=== PATIENT | male | born 1970 | race Hispanic/Latino ===

== ENCOUNTER 2023-03-09 18:32 | Emergency (ER) | payer OTHER ==
--- OUTSIDE RECORDS SUMMARY | 2023-03-09 18:35 | XMS REPORT | Clinical Summary ---
:1970 Author Organization [facility] MD [facility] Address [address] [place] [address] Care Team Providers Name Role Phone Franco Guzman MD Unavailable Unavailable Nnamdi Peterson Rp, MD Primary Care Provider Allergies No known active allergies Medications Medication Sig Dispensed Refills Start End Date Status Date glimepiride (AMARYL) 4 0 Active mg tablet FARXIGA 10 mg tab TAKE 1 11 Ac tive TABLET BY 9 MOUTH EVERY DAY metFORMIN (GLUCOPHAGE) 0 Active 500 mg tablet hydroCHLOROthiazide 0 Active (MICROZIDE) 12.5 mg 9 capsule losartan (COZAAR) 100 mg 0 Active tablet 9 aspirin 81 mg EC tablet Take 1 0 Active tablet (81 mg) by mouth daily. atorvastatin (LIPITOR) 20 mg. 0 0 Discontinued 20 mg tablet 9 22 (Discon tinued by another clinician) promethazine (PHENERGAN) Take 25 mg 0 08/07 Discontinued 25 mg tablet by mouth. 9 22 (Discon tinued by another clinician) Active Problems Problem Noted Date Polycythemia 01/02/2019 Bandemia 01/02/2019 Encounters Date Type Specialty Care Team Description 03/07/2023 Orders Only Oncology Annemarie Francisco Polycythemi a (Primary AIRPLANE ELECTRICIAN Dx) 02/28/2023 Follow-Up Oncology Nnamdi Peterson Rp, Polycythemia Annemarie Parish, AIRPLANE ELECTRICIAN 02/28/2023 Travel 10/04/2022 Telephone Oncology Annemarie Francisco [employer]PLANE ELECTRICIAN 08/30/2022 Office Visit Genitourinary Oncology Nnamdi Peterson Rp, Homero ycythemia 08/30/2022 Orders Only Oncology Annemarie Francisco Polycythemi a (Primary AIRPLANE ELECTRICIAN Dx) 08/30/2022 Travel 08/09/2022 Orders Only Oncology Annemarie Francisco Polycythemi misha (Primary AIRPLANE ELECTRICIAN Dx) after 03/09/2022 Surgical History Surgery Date Site/Laterality Comments BACK SURGERY 2002, 2006 L4, L5 [facility] COLONOSCOPY 2008, 2013 Dr. Brett Rosales/Janet Gupta CHOLECYSTECTOMY 11/06/2016 - 11/05/2017 UPPER GASTROINTESTINAL 11/06/2014 - [facility] ENDOSCOPY 11/05/2015 Medical History Medical History Date Comments Hypertension 12/03/2018 Dr. Lares visit Allergic rhinitis 2007 Dr. Bae Gallstone 2016 Gallbladder removed Sexual dysfunction [address] Iglesias/Dr. Lares Family History Medical History Relation Name Comments -Colon cancer Maternal Uncle Yeyo Fletcher Relation Name Status Comments Maternal Uncle Yeyo Fletcher Social History Tobacco Use Types Packs/Day Years Used Date Smoking Tobacco: Former Cigarettes 0.3 3 11/2013 - 11/06/2015 Smokeless Tobacco: Never Tobacco Cessation: Ready to Quit: Yes Alcohol Use Standard Drinks/Week Comments No 0 (1 standard drink = 0.6 oz pure alcoho l) Sex Assigned at Date Recorded Not on file Job Start Date Occupation Industry Not on file Not on file Not on file COVID-19 Exposure Response Date Recorded In the last 10 days, have you been in contact with No / Unsu re 02/28/2023 8:55 AM CDT someone who was confirmed or suspected to have Coronavirus/COVID-19? 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 Plan of Treatment Date Type Specialty Care Team Description 03/14/2023 Telephone Genitourinary Oncology Odilia Peterson i, Rp, MD [address] [place] [address] (Wo rk) 08/29/2023 Lab Lab Annemarie Francisco APN [address] [place], [place] [address] (Wo rk) 08/29/2023 Follow-Up Genitourinary Oncology Odilia Peterson i, Rp, MD [address] [place] [address] (Wo rk) Health Maintenance Due Date Last Done Comments COVID-19 Vaccination (3 - Booster for 07/22/2022 05/27/2022 , 11/03/2021 Pfizer series) Procedures Procedure Name Priority Date/Time Associated Comments Diagnosis FRACTIONATED BILIRUBIN Routine 02/28/2023 9:04 Polycythemia Re sults for this AM CDT procedure are i n the results section. TOTAL PROTEIN Routine 02/28/2023 9:04 Polycythemia Results for this AM CDT procedure are i n the results section. ASPARTATE Routine 02/28/2023 9:04 Polycythemia Results for this AMINOTRANSFERASE AM CDT procedure a re in the results section. ALANINE AMINOTRANSFERASE Routine 02/28/2023 9:04 Polycythemia Results for this AM CDT procedure are i n the results section. ALKALINE PHOSPHATASE Routine 02/28/2023 9:04 Polycythemia Resu lts for this AM CDT procedure are i n the results section. ALBUMIN LEVEL Routine 02/28/2023 9:04 Polycythemia Results for this AM CDT procedure are i n the results section. CALCIUM LEVEL TOTAL Routine 02/28/2023 9:04 Polycythemia Resul ts for this AM CDT procedure are i n the results section. .GLOMERULAR FILTRATION Routine 02/28/2023 9:04 Polycythemia Re sults for this RATE AM CDT procedure are i n the results section. SERUM CREATININE Routine 02/28/2023 9:04 Polycythemia Results for this AM CDT procedure are i n the results section. ELECTROLYTE PANEL Routine 02/28/2023 9:04 Polycythemia Results for this AM CDT procedure are i n the results section. BLOOD UREA NITROGEN Routine 02/28/2023 9:04 Polycythemia Resul ts for this AM CDT procedure are i n the results section. GLUCOSE LEVEL Routine 02/28/2023 9:04 Polycythemia Results for this AM CDT procedure are i n the results section. MANUAL DIFFERENTIAL Routine 02/28/2023 9:04 Polycythemia Resul ts for this AM CDT procedure are i n the results section. Results CBC Routine 02/28/2023 9:04 Polycythemia Results for this AM CDT procedure are i n the results section. VITAMIN B12 LEVEL Routine 02/28/2023 9:04 Polycythemia Results for this AM CDT procedure are i n the results section. FERRITIN LVL Routine 02/28/2023 9:04 Polycythemia Results for this AM CDT procedure are i n the results section. COMPREHENSIVE METABOLIC Routine 02/28/2023 9:04 Polycythemia PANEL AM CDT COMPLETE BLOOD COUNT W/ Routine 02/28/2023 9:04 Polycythemia DIFFERENTIAL AM CDT FRACTIONATED BILIRUBIN Routine 08/30/2022 10:17 Polycythemia R esults for this AM CDT procedure are i n the results section. TOTAL PROTEIN Routine 08/30/2022 10:17 Polycythemia Results fo r this AM CDT procedure are i n the results section. ASPARTATE Routine 08/30/2022 10:17 Polycythemia Results for this AMINOTRANSFERASE AM CDT procedure a re in the results section. ALANINE AMINOTRANSFERASE Routine 08/30/2022 10:17 Polycythemia Results for this AM CDT procedure are i n the results section. ALKALINE PHOSPHATASE Routine 08/30/2022 10:17 Polycythemia Res ults for this AM CDT procedure are i n the results section. ALBUMIN LEVEL Routine 08/30/2022 10:17 Polycythemia Results fo r this AM CDT procedure are i n the results section. CALCIUM LEVEL TOTAL Routine 08/30/2022 10:17 Polycythemia Resu lts for this AM CDT procedure are i n the results section. .GLOMERULAR FILTRATION Routine 08/30/2022 10:17 Polycythemia R esults for this RATE AM CDT procedure are i n the results section. SERUM CREATININE Routine 08/30/2022 10:17 Polycythemia Results for this AM CDT procedure are i n the results section. ELECTROLYTE PANEL Routine 08/30/2022 10:17 Polycythemia Result s for this AM CDT procedure are i n the results section. BLOOD UREA NITROGEN Routine 08/30/2022 10:17 Polycythemia Resu lts for this AM CDT procedure are i n the results section. GLUCOSE LEVEL Routine 08/30/2022 10:17 Polycythemia Results fo r this AM CDT procedure are i n the results section. MANUAL DIFFERENTIAL Routine 08/30/2022 10:17 Polycythemia Resu lts for this AM CDT procedure are i n the results section. Results CBC Routine 08/30/2022 10:17 Polycythemia Results for this AM CDT procedure are i n the results section. FERRITIN LVL Routine 08/30/2022 10:17 Polycythemia Results for this AM CDT procedure are i n the results section. COMPREHENSIVE METABOLIC Routine 08/30/2022 10:17 Polycythemia PANEL AM CDT COMPLETE BLOOD COUNT W/ Routine 08/30/2022 10:17 Polycythemia DIFFERENTIAL AM CDT after 03/09/2022 Results .Serum Creatinine (02/28/2023 9:04 AM CDT)Only the most recent of2 resultswithin the time period is included. athologist Signature Creatinine 0.77 0.67 - 1.17 [place] mg/dL Comment: Testing performed at [facility], [address] [place] [address] Specimen Anatomical Collection Method Collection Time Receive d Time (Source) Location / / Volume Laterality Blood 02/28/2023 9:04 AM 3 9:05 CDT AM CDT Annmearie Francisco APN LAB BLOOD ORDERABLES Performing Organization Address City/State/ZIP Code Phon e Number [facility] [place] [address] [place] [address] .CBC (02/28/2023 9:04 AM CDT)Only the most recent of2 resultswithin the time period is included. athologist Signature WBC 10.7 4.0 - 11.0 [place] K/uL Comment: All components of the CBC perfo rmed at [facility], [address] [place] [address], [place] [address] RBC 5.89 4.50 - 6.00 M/uL [place] Comment: All components of the CBC perfo rmed at [facility], [address] [place] [address], [place] [address] Hgb 15.9 14.0 - 18.0 gm/dL [place] Comment: As part of CBC or as an individ ual orderable testing performed at [facility], [address] [place] [address], [place] [address] Hct 48.8 40.0 - 54.0 % [place] Comment: As part of CBC testing performe d at [facility], [address] [place] [address], [place] [address] MCV 83 82 - 98 fL [place] Comment: As part of CBC testing performe d at [facility], [address] [place] [address], [place] [address] MCH 27.0 27.0 - 31.0 pg [place] Comment: As part of CBC testing performe d at [facility], [address] [place] [address], [place] [address] MCHC 32.6 31.0 - 36.0 gm/dL [place] Comment: As part of CBC testing performe d at [facility], [address] [place] [address] RDW-SD 40.2 35.1 - 46.3 fL [place] Comment: As part of CBC testing performe d at [facility], [address] [place] [address] RDW-CV 13.5 12.0 - 15.5 % [place] Comment: As part of CBC testing performe d at [facility], [address] [place] [address], [place] [address] Platelet count 219 140 - 440 K/uL [facility] Comment: As part of CBC or an individual orderable testing performed at [facility], [address] [place] [address], [place] [address] MPV 9.7 4.0 - 10.4 fL [place] Comment: As part of CBC testing performe d at [facility], [address] [place] [address], [place] [address] Specimen Anatomical Collection Method Collection Time Receive d Time (Source) Location / / Volume Laterality Blood 02/28/2023 9:04 AM 3 9:05 CDT AM CDT Annemarie Francisco APN LAB BLOOD ORDERABLES Performing Organization Address City/State/ZIP Code Phon e Number [place], [place] [id number] [place] [address] Glomerular Filtration Rate (02/28/2023 9:04 AM CDT)Only the most recent of2 resultswithin the time period is included. athologist Signature eGFR 106 >=60 [place] mL/min/1.73 sq. m Comment: The eGFRcr is calculated with the 2020 KD-EPI creatinine equation using creatinine, patient's age, and sex for adults 18 years of age and older. Other factors, especially muscle mass, may affect accuracy and need to be considered. According to the Kidney Disease: Improvi ng Global Outcomes (KDIGO) CKD Work Group 2012 Clinical Practice Guideline, chronic kidney disease (CKD) is defined as the abnormalities of kidney structure or function, present for more than 3 months, with implications for health. CKD should be c lassified by cause, GFR category, and albuminuria category. KDIGO guidelines provide the following GFR categories Stage Description GFR mL/min/1.73 m2 G1* Normal or high >= 90 G2* Mildly decreased 60-89 G3a Mildly to moderately decreased 45-59 G3b Moderately to severely decreased 30- 44 G4 Severely decreased 15-29 G5 Kidney failure <15 *In the absence of evidence of kidney da mage, neither G1 nor G2 fulfill criteria for CKD. Testing performed at [facility], [address] [place] [address], [place] [address] Specimen Anatomical Collection Method Collection Time Receive d Time (Source) Location / / Volume Laterality Blood 02/28/2023 9:04 AM 3 9:05 CDT AM CDT Annemarie Francisco APN LAB BLOOD ORDERABLES Performing Organization Address City/[facility] [place] [address] [place] [address] Fractionated Bilirubin (02/28/2023 9:04 AM CDT)Only the most recent of2 results within the time period is included. athologist Signature Bili Total 0.4 <=1.2 mg/dL [place] Comment: Indocyanine Green (ICG) may cause falsel y elevated bilirubin results. Total and direct bilirubin must not be measured from samples containing indocyanine green. False elevation of total bilirubin can b e seen in patients with IgG concentrations above 28 g/L. Testing performed at [facility], [address] [place] [address] Bili Direct <0.2 <=0.3 mg/dL [place] Comment: Indocyanine Green (ICG) may cause falsel y elevated bilirubin results. Total and direct bilirubin must not be measured from samples containing indocyanine green. Testing performed at [facility], [address] [place] [address] Bili Indirect See Note 0.0 - 0.9 mg/dL [facility] Comment: Unable to calculate Indirect Bilirubin r esult due to some parameters are outside reportable range Testing performed at [facility], [address] [place] [address] Specimen Anatomical Collection Method Collection Time Receive d Time (Source) Location / / Volume Laterality Blood 02/28/2023 9:04 AM 3 9:05 CDT AM CDT Annemarie Francisco APN LAB BLOOD ORDERABLES Performing Organization Address City/[facility]/ZIP Code Phon e Number [facility] [place] [address] [place] [address] (ABNORMAL) Differential (02/28/2023 9:04 AM CDT)Only the most recent of2 results within the time period is included. athologist Signature Neutrophil % 50.4 42.0 - 66.0 [place] % Comment: All components of the Different ial performed at [facility], [address] [place] [address] Lymphocyte % 37.9 24.0 - 44.0 % [place] Comment: As part of the Differential mukesh ting performed at [facility], [address] [place] [address] Monocyte % 7.5 (H) 2.0 - 7.0 % [place] Comment: As part of the Differential mukesh ting performed at [facility], [address] [place], [place] [id number] Eosinophil % 3.5 1.0 - 4.0 % [place] Comment: As part of the Differential mukesh ting performed at [facility], [address] [place], [place] [id number] Basophil % 0.3 0.0 - 1.0 % [place] Comment: As part of the Differential mukesh ting performed at [facility], [address] [place] [address] IGRE % 0.4 0.0 - 0.4 % [place] Comment: IGRE % count includes Metamyelocytes, My elocytes, and Promyelocytes. As part of the Differential testing perf ormed at [facility], [address] [place] [address], [place] [address] Neutrophil Abs 5.41 1.70 - 7.30 K/uL [facility] Comment: As part of the Differential mukesh ting performed at [facility], [address] [place] [address] Lymphocyte Abs 4.06 1.00 - 4.80 K/uL [facility] Comment: As part of the Differential mukesh ting performed at [facility], [address] [place] [address] Monocyte Abs 0.80 (H) 0.08 - 0.70 K/uL [facility] Comment: As part of the Differential mukesh ting performed at [facility], [address] [place] [address] Eosinophil Abs 0.37 0.04 - 0.40 K/uL [facility] Comment: As part of the Differential mukesh ting performed at [facility], [address] [place] [address] Basophil Abs 0.03 0.00 - 0.10 K/uL [facility] Comment: As part of the Differential mukesh ting performed at [facility], [address] [place] [address], [place] [address] IG Abs 0.04 0.00 - 0.04 K/uL [place] Comment: As part of the Differential mukesh ting performed at [facility], [address] [place] [address], [place] [address] Specimen Anatomical Collection Method Collection Time Receive d Time (Source) Location / / Volume Laterality Blood 02/28/2023 9:04 AM 3 9:05 CDT AM CDT Annemarie Francisco APN LAB BLOOD ORDERABLES Performing Organization Address City/[facility]/ZIP Code Phon e Number [address] BUN (02/28/2023 9:04 AM CDT)Only the most recent of2 resultswithin the time period is included. P athologist Signature BUN 20 6 - 23 mg/dL [place] Comment: Testing performed at [facility], [address] [place] [address] Specimen Anatomical Collection Method Collection Time Receive d Time (Source) Location / / Volume Laterality Blood 02/28/2023 9:04 AM 3 9:05 CDT AM CDT Annemarie Francisco APN LAB BLOOD ORDERABLES Performing Organization Address City/[facility]/ZIP Code Phon e Number [place], [place] [phone] [place] [address] ALT (02/28/2023 9:04 AM CDT)Only the most recent of2 resultswithin the time period is included. P athologist Signature ALT 40 <=41 U/L [place] Comment: Testing performed at [facility], [address] [place] [address] Specimen Anatomical Collection Method Collection Time Receive d Time (Source) Location / / Volume Laterality Blood 02/28/2023 9:04 AM 3 9:05 CDT AM CDT Annemarie Francisco APN LAB BLOOD ORDERABLES Performing Organization Address City/[facility] Phon e [place], [place] [phone] [place] [address] Aspartate Aminotransferase (02/28/2023 9:04 AM CDT)Only the most recent of2 resultswithin the time period is included. athologist Signature AST 25 <=40 U/L [place] Comment: Testing performed at [facility], [address] [place] [address] Specimen Anatomical Collection Method Collection Time Receive d Time (Source) Location / / Volume Laterality Blood 02/28/2023 9:04 AM 3 9:05 CDT AM CDT Annemarie BURNSN LAB BLOOD ORDERABLES Performing Organization Address [facility] Phon [place], [place] [phone] [place] [address] Total Protein (02/28/2023 9:04 AM CDT)Only the most recent of2 resultswithin the time period is included. athologist [facility] [place] Total Protein 7.4 6.4 - 8.3 [place] g/dL Comment: Testing performed at [facility], [address] [place] [address] Specimen Anatomical Collection Method Collection Time Receive d Time (Source) Location / / Volume Laterality Blood 02/28/2023 9:04 AM 3 9:05 CDT AM CDT Annemarie BURNSN LAB BLOOD ORDERABLES Performing Organization Address City/[facility] Phon e [place], [place] [address] [place] [address] Alkaline Phosphatase (02/28/2023 9:04 AM CDT)Only the most recent of2 results within the time period is included. P athologist Signature Alk Phos 100 40 - 129 U/L [place] Comment: Testing performed at [facility], [address] [place] [address] Specimen Anatomical Collection Method Collection Time Receive d Time (Source) Location / / Volume Laterality Blood 02/28/2023 9:04 AM 3 9:05 CDT AM CDT Annemarie Francisco APN LAB BLOOD ORDERABLES Performing Organization Address City/[facility]/ZIP Code Phon e Number [place], [place] [address] [place] [address] (ABNORMAL) Glucose Level (02/28/2023 9:04 AM CDT)Only the most recent of2 resultswithin the time period is included. athologist Signature Glucose Level 106 (H) 70 - 99 [place] mg/dL Comment: Effective 06/01/16, the glucose reference intervals have been updated based on [place] [employer] guidelines (Standards of Medical Care in Diabetes 2016. Diabetes Care 2016; 39: S13-S22). Fasting blood glucose: Normal: 70-99 mg/dL Impaired fasting glucose (increased risk for diabetes or pre-diabetes): 100- 125 mg/dL Diabetes mellitus: >/=126 mg/dL Random blood glucose: Normal: 70-199 mg/dL Note: Random glucose >100 mg/dL is assoc iated with increased risk for diabetes Testing performed at [facility], [address] [place] [address] Specimen Anatomical Collection Method Collection Time Receive d Time (Source) Location / / Volume Laterality Blood 02/28/2023 9:04 AM 3 9:05 CDT AM CDT Annemarie Francisco APN LAB BLOOD ORDERABLES Performing Organization Address City/[facility]/ZIP Code Phon e Number [place], [place] [phone] [place] [address] (ABNORMAL) Ferritin (02/28/2023 9:04 AM CDT)Only the most recent of2 results within the time period is included. athologist Signature Ferritin Lvl 29 (L) 30 - 400 [place] ng/mL Comment: Testing performed at [facility], [address] [place] [address] Specimen Anatomical Collection Method Collection Time Receive d Time (Source) Location / / Volume Laterality Blood 02/28/2023 9:04 AM 3 9:05 CDT AM CDT Annemarie BURNSN LAB BLOOD ORDERABLES Performing Organization Address City/[facility]/ZIP Code Phon e Number [place], [place] [phone] [place] [address] Vitamin B12 Level (02/28/2023 9:04 AM CDT) athologist [facility] [place] Vitamin B12 Lvl 550 211 - 946 [place] pg/mL Comment: [facility] [place], [address] [place] [address] Specimen Anatomical Collection Method Collection Time Receive d Time (Source) Location / / Volume Laterality Blood 02/28/2023 9:04 AM 3 9:05 CDT AM CDT Annemarie BURNSN LAB BLOOD ORDERABLES Performing Organization Address City/[facility]/ZIP Code Phon e Number [place], [place] [id number] [place] [address] Calcium Level (02/28/2023 9:04 AM CDT)Only the most recent of2 resultswithin the time period is included. athologist [facility] [place] Calcium Lvl 9.5 8.4 - 10.2 [place] mg/dL Comment: Testing performed at [facility], [address] [place] [address] Specimen Anatomical Collection Method Collection Time Receive d Time (Source) Location / / Volume Laterality Blood 02/28/2023 9:04 AM 3 9:05 CDT AM CDT Annemarie Francisco AIRPLANE ELECTRICIAN LAB BLOOD ORDERABLES Performing Organization Address City/[facility]/ZIP [facility] Phon e Number [place], [place] [address] [place] [address] Albumin Level (02/28/2023 9:04 AM CDT)Only the most recent of2 resultswithin the time period is included. athologist Signature Albumin Lvl 4.2 3.5 - 5.2 [place] gm/dL Comment: Testing performed at [facility], [address] [place] [address] Specimen Anatomical Collection Method Collection Time Receive d Time (Source) Location / / Volume Laterality Blood 02/28/2023 9:04 AM 3 9:05 CDT AM CDT Annemarie BURNSN LAB BLOOD ORDERABLES Performing Organization Address City/[facility] [place] [address] [place] [address] Electrolyte Panel (02/28/2023 9:04 AM CDT)Only the most recent of2 resultswithin the time period is included. athologist Signature Sodium Lvl 139 136 - 145 [place] mEq/L Comment: Testing performed at [facility], [address] [place] [address] Potassium Lvl 3.9 3.5 - 5.1 mEq/L [facility] Comment: Testing performed at [facility], [address] [place] [address] Chloride 102 98 - 107 mEq/L [place] Comment: Testing performed at [facility], [address] [place] [address] CO2 28 22 - 29 mEq/L [place] Comment: Testing performed at [facility], [address] [place] [address] Anion Gap 9 4 - 14 mEq/L [place] Comment: Testing performed at [facility], [address] [place] [address] [id number] Specimen Anatomical Collection Method Collection Time Receive d Time (Source) Location / / Volume Laterality Blood 02/28/2023 9:04 AM 3 9:05 CDT AM CDT Annemarie Francisco APN LAB BLOOD ORDERABLES Performing Organization Address City/[facility]/ZIP [facility] [place] [address] [place] [address] after 03/09/2022 Insurance Payer Benefit Plan / Subscriber ID Effective Dates Phone Addre ss Type Group [employer] MANAGED A[employer] O [id number] 2014-Present [id number] [place] [address] Fahad Aguilera Personal/Family Self 1970 [address] (Home) [place] [address] AguileraFahad nash Personal/Family Self 1970 [address] (Home) [place] [address] Care Teams [employer] Order And Stock Clerk Relationship Specialty Start Date End Date Franco Guzman PCP - External Primary Internal Medicine 9 MD [place] Care Provider Nnamdi Peterson Rp, MD PCP - General Hematology and 01/01/19 2280 [facility] Oncology [place], [place] [id number]
--- OUTSIDE RECORDS SUMMARY | 2023-03-09 18:37 | XMS REPORT | Continuity of Care Document ---
:1970 Author Organization [facility] t Address [address] [place] [address] Care Team Providers Name Role Phone [phone] Primary Care Physician Unavailable Ramiro Pratt APN Attending Clinician Erin Peterson MD, Rp Attending Clinician ERIN PETERSON RP Attending Clinician Unavailable RAMIRO PRATT Attending Clinician Unavailable Issac_Bahman Attending Clinician Unavailable Phleb, [facility] Attending Clinician Unavailable Cassandra Santana NP Attending Clinician CASSANDRA SANTANA Attending Clinician Unavailable Erin Peterson MD, Rp Attending Clinician ERIN PETERSON RP Attending Clinician Unavailable [facility] Attending Clinician Unavailable Doctor Unassigned, [facility] Attending Clinician Unavailable Prem Davenport MD Attending Clinician FARIDA MUSA Attending Clinician Unavailable PREM DAVENPORT Attending Clinician Unavailable MARTITA VENEGAS Attending Clinician Unavailable MARTITA VENEGAS Attending Clinician Unavailable LISA PATEL Attending Clinician Unavailable ZACH BARBOZA Attending Clinician Unavailable ROSE MARIE PATEL Attending Clinician Unavailable CLARKE HASSAN Attending Clinician Unavailable Daniel_T Admitting Clinician Unavailable CASSANDRA SANTANA Admitting Clinician Unavailable ERIN PETERSON RP Admitting Clinician Unavailable CLARKE HASSAN Admitting Clinician Unavailable Payers Payer Name Policy Type Policy Number Effective Date Expiration Date S ource [employer] (EPO) [id number] 2014 00:00:00 Problems Condition Condition Condition Status Onset Resolution Last Treating Co mments Source Name Details Category Date Date Treatment Clinician Date Morbid Morbid Problem Active 2021-11 [place] obesity Obesity 2-19 Family 00:00: Practic 00 e 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 00:00: Pr actic disorder Disorder 00 e Secondary Secondary Problem Active Berna blanc polycythem Polycythem 3 Fa nando ia ia 00:00: Practic 00 e ALT (SGPT) ALT (SGPT) Problem Active [place] level Level 3-23 Family raised Raised 00:00: Practic 00 e Increased Increased Problem Active Berna blanc aspartate Aspartate 01-26 Fami ly transamina Transamina 00:00: Pr actic se level se Level 00 e Type 2 Type 2 Problem Active [place] diabetes Diabetes 2-22 Family mellitus Mellitus 00:00: Practi c 00 e Hyperlipid Hyperlipid Problem Active [place] emia emia 2-22 Family 00:00: Practic 00 e Essential Essential Problem Active Berna guanaco hypertensi Hypertensi 2-22 Fa nando on on 00:00: Practic 00 e Polycythem Polycythem Disease Active 2018- U nivers ia ia 2- ity of 00:00: [place] 00 [facility] Branch Nausea and Nausea and Disease Active 2018- U nivers vomiting vomiting 2- ity of 00:00: [place] 00 Medical Branch Polycythem Polycythem Disease Active U nivers ia ia 2- ity of 00:00: [place] 00 MD [facility] Bandemia Bandemia Disease Active Unive rs 2-27 ity of 00:00: [place] 00 MD [facility] Essential Essential Disease Active Uni vers hypertensi hypertensi 5- it y of on on 00:00: [place] 00 Medical Branch Dyslipidem Dyslipidem Disease Active U nivers ia ia 5- ity of 00:00: [place] 00 [facility] Type 2 Type 2 Disease Active Univers diabetes diabetes 5 ity of mellitus mellitus 00:00: [place] with with 00 Medical complicati complicati Br anch on, on, without without long-term long-term current current use of use of insulin insulin Elevated Elevated Disease Active Unive rs liver liver 03-28 ity of enzymes enzymes 00:00: [place] [facility] Obesity, Obesity, Disease Active Unive rs unspecifie unspecifie - it y of d obesity d obesity 00:[place] severity, severity, 00 Medi jesica unspecifie unspecifie Br anch d obesity d obesity type type Metabolic Metabolic Disease Active Uni vers syndrome X syndrome X 03-28 it y of 00:00: [place] 00 Medical Branch Intractabl Intractabl Disease Active U nivers e nausea e nausea 4-24 ity of and and 00:00: [place] vomiting vomiting 00 Medica l Branch Obesity Obesity Disease Active Univers (BMI (BMI 4-22 ity of 30-39.9) 30-39.9) 00:00: [place] [facility] Chest pain Chest pain Disease Active U nivers 4-22 ity of 00:00: [place] [facility] [place] Allergies, Adverse Reactions, Alerts Allergy Allergy Status Severity Reaction(s) Onset Inactive Treating Comm ents Source Name Type Date Date Clinician NO KNOWN Drug Active Univers ALLERGIE Class ity of S [facility] Family History Family Member Diagnosis Comments Start Date Stop Date Source Maternal uncle -Colon cancer Univers ity of [facility] Cance r [place] Social History Social Habit Start Date Stop Date Quantity Comments Source History SDOH University o f Alcohol Frequency [facility] edical Branch History SDWV University o f Alcohol Std Drinks [facility] History [facility] University o f Alcohol Binge [place] [facility] History of tobacco Current smoker Un iversity of use [facility] Exposure to 2023-02-18 2023-02-28 Not sure University of SARS-CoV-2 (event) 00:00:00 08:55:00 [facility] Cancer [place] Tobacco use and 2019-10-06 2019-10-06 Smokeless Universit y of exposure 00:00:00 00:00:00 tobacco non-user [facility] dical [place] Alcohol Comment 2019-01-17 2019-01-17 social Universit y of 00:00:00 00:00:00 [facility] Cigarettes smoked 2019-01-02 2019-01-02 Univers ity of current (pack per 00:00:00 00:00:00 [place] Nasir Gonzales ) - Reported Cancer Ce nter Cigarette 2019-01-02 2019-01-02 University of pack-years 00:00:00 00:00:00 Kimberlyn alberto [facility] Alcohol intake 2019-01-02 2019-01-02 Current University of 00:00:00 00:00:00 non-drinker of Kimberlyn goddard alcohol [facility] (finding) Tobacco Comment 2017-02-25 2017-02-25 says he is Universit y of 00:00:00 00:00:00 currently [facility] [place] [facility] Sex [birth year] At [birth year] Universit y of 00:00:00 00:00:00 Kimberlyn alberto [facility] Smoking Status Start Date Stop Date Source Ex-smoker 2019-10-06 00:00:00 2019-10-06 00:00:00 [facility] Medications Ordered Filled Start Stop Current Ordering Indication Dosage Frequency Signature Comments Components Source Medication Medication Date Date Medication? Clinician (SIG) Name Name glimepiride Yes Univrogelio s (AMARYL) 4 4-25 ity of mg tablet 09:46: [place] [facility] metFORMIN Yes Univers (GLUCOPHAGE 4-25 ity of ) 500 mg 09:46: [facility] aspirin 81 Yes 81mg Take 1 Unive rs mg EC 4-25 tablet (81 ity of tablet 09:46: mg) by Kimberlyn lopez MD daily. [facility] Yes [id number] TAKE 1 U nivers mg tablet 7-26 TABLET BY ity o f 00:00: MOUTH EVERY DAY [facility] Yes [id number] TAKE 1 U nivers mg tablet 7-26 TABLET BY ity o f 00:00: MOUTH [place] EVERY DAY [facility] Yes [id number] TAKE 1 U nivers mg tablet 7-26 TABLET BY ity o f 00:00: MOUTH [place] EVERY DAY [facility] Yes [id number] TAKE 1 U nivers mg tablet 7-26 TABLET BY ity o f 00:00: MOUTH [place] 00 EVERY DAY Medical Branch [facility] 10 Yes [id number] TAKE 1 U nivers mg tablet 7-26 TABLET BY ity o f 00:00: MOUTH [place] 00 EVERY DAY Medical Branch [facility] 10 0 Yes [id number] TAKE 1 U nivers mg tablet 7-26 TABLET BY ity o f 00:00: MOUTH [place] 00 EVERY DAY Medical Branch [facility] 10 0 Yes [id number] TAKE 1 U nivers mg tablet 7-26 TABLET BY ity o f 00:00: MOUTH [place] 00 EVERY DAY Medical Branch [facility] 10 Yes [id number] TAKE 1 U nivers mg tablet 7-26 TABLET BY ity o f 00:00: MOUTH [place] 00 EVERY DAY Medical Branch [facility] 10 Yes [id number] TAKE 1 U nivers mg tablet 7-26 TABLET BY ity o f 00:00: MOUTH [place] 00 EVERY DAY Medical Branch [facility] 10 Yes [id number] TAKE 1 U nivers mg tablet 7-26 TABLET BY ity o f 00:00: MOUTH [place] 00 EVERY DAY Medical Branch glimepiride Yes [id number] 4mg Take 1 Univers 4 mg tablet 5-05 tablet by ity of 00:00: mouth 2 [place] 00 (two) Medical times Branch daily. hydroCHLORO Yes [id number] 12.5mg Take 1 Univers thiazide 5-05 capsule by ity o f 12.5 mg 00:00: mouth [place] capsule 00 daily. Medical Branch losartan 0 Yes [id number] 100mg Take 1 Un stacey 100 mg 5-05 tablet by ity of tablet 00:00: mouth [place] 00 daily. Medical Branch glimepiride Yes [id number] 4mg Take 1 Univers 4 mg tablet 5-05 tablet by ity of 00:00: mouth 2 [place] 00 (two) Medical times Branch daily. hydroCHLORO Yes [id number] 12.5mg Take 1 Univers thiazide 5-05 capsule by ity o f 12.5 mg 00:00: mouth [place] capsule 00 daily. Medical Branch losartan Yes [id number] 100mg Take 1 Un stacey 100 mg 5-05 tablet by ity of tablet 00:00: mouth [place] 00 daily. Medical Branch glimepiride Yes [id number] 4mg Take 1 Univers 4 mg tablet 5-05 tablet by ity of 00:00: mouth 2 [place] (two) Medical times Branch daily. hydroCHLORO 0 Yes [id number] 12.5mg Take 1 Univers thiazide 5-05 capsule by ity o f 12.5 mg 00:00: mouth [place] capsule 00 daily. Medical Branch losartan Yes [id number] 100mg Take 1 Un stacey 100 mg 5-05 tablet by ity of tablet 00:00: mouth [place] 00 daily. Medical Branch glimepiride Yes [id number] 4mg Take 1 Univers 4 mg tablet 5-05 tablet by ity of 00:00: mouth 2 [place] (two) Medical times Branch daily. hydroCHLORO Yes [id number] 12.5mg Take 1 Univers thiazide 5-05 capsule by ity o f 12.5 mg 00:00: mouth [place] capsule 00 daily. Medical Branch losartan Yes [id number] 100mg Take 1 Un stacey 100 mg 5-05 tablet by ity of tablet 00:00: mouth [place] 00 daily. Medical Branch glimepiride Yes [id number] 4mg Take 1 Univers 4 mg tablet 5-05 tablet by ity of 00:00: mouth 2 [place] (two) Medical times Branch daily. hydroCHLORO Yes [id number] 12.5mg Take 1 Univers thiazide 5-05 capsule by ity o f 12.5 mg 00:00: mouth [place] capsule 00 daily. Medical Branch losartan Yes [id number] 100mg Take 1 Un stacey 100 mg 5-05 tablet by ity of tablet 00:00: mouth [place] 00 daily. Medical Branch glimepiride Yes [id number] 4mg Take 1 Univers 4 mg tablet 5-05 tablet by ity of 00:00: mouth 2 [place] 00 (two) Medical times Branch daily. hydroCHLORO 2020-0 Yes [id number] 12.5mg Take 1 Univers thiazide 5-05 capsule by ity o f 12.5 mg 00:00: mouth [place] capsule 00 daily. Medical Branch losartan Yes [id number] 100mg Take 1 Un stacey 100 mg 5-05 tablet by ity of tablet 00:00: mouth [place] 00 daily. Medical Branch glimepiride Yes [id number] 4mg Take 1 Univers 4 mg tablet 5-05 tablet by ity of 00:00: mouth 2 [place] (two) Medical times Branch daily. hydroCHLORO 2020-0 Yes [id number] 12.5mg Take 1 Univers thiazide 5-05 capsule by ity o f 12.5 mg 00:00: mouth [place] capsule 00 daily. Medical Branch losartan Yes [id number] 100mg Take 1 Un stacey 100 mg 5-05 tablet by ity of tablet 00:00: mouth [place] 00 daily. Medical Branch glimepiride Yes [id number] 4mg Take 1 Univers 4 mg tablet 5-05 tablet by ity of 00:00: mouth 2 [place] (two) Medical times Branch daily. hydroCHLORO Yes [id number] 12.5mg Take 1 Univers thiazide 5-05 capsule by ity o f 12.5 mg 00:00: mouth [place] capsule 00 daily. Medical Branch losartan Yes [id number] 100mg Take 1 Un stacey 100 mg 5-05 tablet by ity of tablet 00:00: mouth [place] 00 daily. Medical Branch glimepiride Yes [id number] 4mg Take 1 Univers 4 mg tablet 5-05 tablet by ity of 00:00: mouth 2 [place] (two) Medical times Branch daily. hydroCHLORO Yes [id number] 12.5mg Take 1 Univers thiazide 5-05 capsule by ity o f 12.5 mg 00:00: mouth [place] capsule 00 daily. Medical Branch losartan 0 Yes [id number] 100mg Take 1 Un stacey 100 mg 5-05 tablet by ity of tablet 00:00: mouth [place] 00 daily. Medical Branch glimepiride Yes [id number] 4mg Take 1 Univers 4 mg tablet 5-05 tablet by ity of 00:00: mouth 2 [place] 00 (two) Medical times Branch daily. hydroCHLORO 2020-0 Yes [id number] 12.5mg Take 1 Univers thiazide 5-05 capsule by ity o f 12.5 mg 00:00: mouth [place] capsule 00 daily. Medical Branch losartan Yes [id number] 100mg Take 1 Un stacey 100 mg 5-05 tablet by ity of tablet 00:00: mouth [place] 00 daily. Medical Branch metformin 2020-0 Yes [id number] 1000mg Take 2 Univers ER 500 mg 5-04 tablets by ity of 24 hr 00:00: mouth 2 [place] tablet 00 (two) Medical times Branch daily with meals. metformin 2020-0 Yes [id number] 1000mg Take 2 Univers ER 500 mg 5-04 tablets by ity of 24 hr 00:00: mouth 2 [place] tablet 00 (two) Medical times Branch daily with meals. metformin 2020-0 Yes [id number] 1000mg Take 2 Univers ER 500 mg 5-04 tablets by ity of 24 hr 00:00: mouth 2 [place] tablet 00 (two) Medical times Branch daily with meals. metformin 2020-0 Yes [id number] 1000mg Take 2 Univers ER 500 mg 5-04 tablets by ity of 24 hr 00:00: mouth 2 [place] tablet 00 (two) Medical times Branch daily with meals. metformin 2020-0 Yes [id number] 1000mg Take 2 Univers ER 500 mg 5-04 tablets by ity of 24 hr 00:00: mouth 2 [place] tablet 00 (two) Medical times Branch daily with meals. metformin 2020-0 Yes [id number] 1000mg Take 2 Univers ER 500 mg 5-04 tablets by ity of 24 hr 00:00: mouth 2 [place] tablet 00 (two) Medical times Branch daily with meals. metformin 2020-0 Yes [id number] 1000mg Take 2 Univers ER 500 mg 5-04 tablets by ity of 24 hr 00:00: mouth 2 [place] tablet 00 (two) Medical times Branch daily with meals. metformin 2020-0 Yes [id number] 1000mg Take 2 Univers ER 500 mg 5-04 tablets by ity of 24 hr 00:00: mouth 2 [place] tablet 00 (two) Medical times Branch daily with meals. metformin 2020-0 Yes [id number] 1000mg Take 2 Univers ER 500 mg 5-04 tablets by ity of 24 hr 00:00: mouth 2 [place] tablet 00 (two) Medical times Branch daily with meals. metformin 2020-0 Yes [id number] 1000mg Take 2 Univers ER 500 mg 5-04 tablets by ity of 24 hr 00:00: mouth 2 [place] tablet 00 (two) Medical times Branch daily with meals. ATORVASTATI 2020-0 Yes [id number] TAKE 1 Univers N 20 mg 5-03 TABLET BY ity of tablet 00:00: MOUTH [place] 00 EVERYDAY Medical AT BEDTIME Branch ATORVASTATI 2020-0 Yes [id number] TAKE 1 Univers N 20 mg 5-03 TABLET BY ity of tablet 00:00: MOUTH [place] 00 EVERYDAY Medical AT BEDTIME Branch ATORVASTATI 2020-0 Yes [id number] TAKE 1 Univers N 20 mg 5-03 TABLET BY ity of tablet 00:00: MOUTH [place] EVERYDAY Medical AT BEDTIME Branch ATORVASTATI 2020-0 Yes [id number] TAKE 1 Univers N 20 mg 5-03 TABLET BY ity of tablet 00:00: MOUTH [place] 00 EVERYDAY Medical AT BEDTIME Branch ATORVASTA 2020-0 Yes [id number] TAKE 1 Univers N 20 mg 5-03 TABLET BY ity of tablet 00:00: MOUTH [place] 00 EVERYDAY Medical AT BEDTIME Branch ATORVASTATI 2020-0 Yes [id number] TAKE 1 Univers N 20 mg 5-03 TABLET BY ity of tablet 00:00: MOUTH [place] EVERYDAY Medical AT BEDTIME Branch ATORVASTA 2020-0 Yes [id number] TAKE 1 Univers N 20 mg 5-03 TABLET BY ity of tablet 00:00: MOUTH [place] 00 EVERYDAY Medical AT BEDTIME Branch ATORVASTA 2020-0 Yes [id number] TAKE 1 Univers N 20 mg 5-03 TABLET BY ity of tablet 00:00: MOUTH [place] 00 EVERYDAY Medical AT BEDTIME Branch ATORVASTATI 2020-0 Yes [id number] TAKE 1 Univers N 20 mg 5-03 TABLET BY ity of tablet 00:00: MOUTH [place] 00 EVERYDAY Medical AT BEDTIME Branch ATORVASTATI 2020-0 Yes [id number] TAKE 1 Univers N 20 mg 5-03 TABLET BY ity of tablet 00:00: MOUTH [place] 00 EVERYDAY Medical AT BEDTIME Branch aspirin 81 2019-0 Yes [id number] 81mg Take 1 Univers mg chewable 3-18 tablet by ity of tablet 00:00: mouth [place] 00 daily. Medical Branch aspirin 81 2019-0 Yes [id number] 81mg Take 1 Univers mg chewable 3-18 tablet by ity of tablet 00:00: mouth [place] 00 daily. Medical Branch aspirin 81 2019-0 Yes [id number] 81mg Take 1 Univers mg chewable 3-18 tablet by ity of tablet 00:00: mouth [place] 00 daily. Medical Branch aspirin 81 2019-0 Yes [id number] 81mg Take 1 Univers mg chewable 3-18 tablet by ity of tablet 00:00: mouth [place] 00 daily. Medical Branch aspirin 81 2019-0 Yes [id number] 81mg Take 1 Univers mg chewable 3-18 tablet by ity of tablet 00:00: mouth [place] 00 daily. Medical Branch aspirin 81 2018- Yes [id number] 81mg Take 1 Univers mg chewable 3-18 tablet by ity of tablet 00:00: mouth [place] 00 daily. Medical Branch aspirin 81 2018- Yes [id number] 81mg Take 1 Univers mg chewable 3-18 tablet by ity of tablet 00:00: mouth [place] 00 daily. Medical Branch aspirin 81 2018- Yes [id number] 81mg Take 1 Univers mg chewable 3-18 tablet by ity of tablet 00:00: mouth [place] 00 daily. Medical Branch aspirin 81 2018- Yes [id number] 81mg Take 1 Univers mg chewable 3-18 tablet by ity of tablet 00:00: mouth [place] 00 daily. Medical Branch aspirin 81 2018- Yes [id number] 81mg Take 1 Univers mg chewable 3-18 tablet by ity of tablet 00:00: mouth [place] 00 daily. Medical Branch promethazin 2021- No 25mg Take 25 mg Univers e 3-12 10-25 by mouth. ity of (PHENERGAN) 00:00: 00:00 [place] 25 mg 00 :00 tablet [facility] [place] losartan Yes Univers (COZAAR) 2-05 ity of 100 mg 00:00: [place] tablet 00 MD [facility] [place] FARXIGA 10 Yes TAKE 1 Unive rs mg tab 1-28 TABLET BY ity of 00:00: MOUTH [place] 00 EVERY DAY MD [facility] hydroCHLORO Yes Univer s thiazide 1-28 ity of (MICROZIDE) 00:00: [place] 12.5 mg [facility] No 20mg 20 mg. Uni vers n (LIPITOR) 1-28 10-25 ity of 20 mg 00:00: 00:00 [place] tablet 00 :00 MD Vergara [facility] metformin metformin No 2 BID metformin [place] ER 500 mg ER 500 mg ER 500 mg Family tablet,exte tablet,exte tablet,ext Practic nded nded ended e release 24 release 24 release 24 hr Take 2 hr Take 2 hr Take 2 tablets tablets tablets twice a day twice a day twice a by oral by oral day by route with route with oral route meals for meals for with meals 90 days. 90 days. for 90 days. OneTouch OneTouch No OneTouch Berna guanaco Delica Plus Delica Plus Delica Family Lancet 30 Lancet 30 Plus Pract ic gauge USE gauge USE Lancet 30 e DIRECTED DIRECTED gauge USE TWICE A DAY TWICE A DAY DIRECTED TWICE A DAY OneTouch OneTouch No 2strip( Q1D OneTouch [facility] Verio test Verio test s) Verio test Family strips Take strips Take strips Practic 2 strips 2 strips Take 2 e every day every day strips by miscell. by miscell. every day route for route for by 90 days. 90 days. miscell. route for 90 days. Ozempic Ozempic No Ozempic [place] e 0.25 mg or 0.25 mg or 0.25 mg or Family 0.5 mg (2 0.5 mg (2 0.5 mg (2 Practic mg/1.5 mL) mg/1.5 mL) mg/1.5 mL) e subcutaneou subcutaneou subcutaneo s pen s pen us pen injector injector injector INJECT 0.5 INJECT 0.5 INJECT 0.5 MG MG MG SUBCUTANEOU SUBCUTANEOU SUBCUTANEO SLY EVERY SLY EVERY USLY EVERY WEEK FOR 30 WEEK FOR 30 WEEK FOR DAYS. DAYS. 30 DAYS. Ozempic 1 Ozempic 1 No 1mg Q1W Ozempic 1 [place] mg/dose (4 mg/dose (4 mg/dose (4 Family mg/3 mL) mg/3 mL) mg/3 mL) Pra ctic subcutaneou subcutaneou subcutaneo e s pen s pen us pen injector injector injector Inject 1 mg Inject 1 mg Inject 1 every week every week mg every by by week by subcutaneou subcutaneou subcutaneo s route for s route for us route 30 days. 30 days. for 30 days. aspirin 81 aspirin 81 No 1capsul Q1D aspirin 81 [place] mg capsule mg capsule e(s) mg capsule Family Take 1 Take 1 Take 1 Practic capsule capsule capsule e every day every day every day by oral by oral by oral route. route. route. diclofenac diclofenac No diclofenac [facility] sodium 75 sodium 75 sodium 75 Family mg mg mg Practic tablet,lili tablet,lili tablet,del e yed release yed release ayed TAKE 1 TAKE 1 release TABLET BY TABLET BY TAKE 1 MOUTH TWICE MOUTH TWICE TABLET BY A DAY A DAY MOUTH TWICE A DAY Equate Equate No Equate [facility] Aspirin Aspirin Aspirin Family Practic e Farxiga 10 Farxiga 10 No 1 Q1D Farxiga 10 [place] mg tablet mg tablet mg tablet Family Take 1 Take 1 Take 1 Practic tablet tablet tablet e every day every day every day by oral by oral by oral route in route in route in the morning the morning the for 90 for 90 morning days. days. for 90 days. FreeStyle FreeStyle No FreeStyle [facility] Ashu 2 Ashu 2 Ashu 2 Family Sensor kit Sensor kit Sensor kit Practic USE USE USE e DIRECTED DIRECTED DIRECTED DAILY BUT DAILY BUT DAILY BUT CHANGE CHANGE CHANGE EVERY 14 EVERY 14 EVERY 14 DAYS DAYS DAYS glimepiride glimepiride No 1 BID glimepirid [facility] 4 mg tablet 4 mg tablet e 4 mg Family Take 1 Take 1 tablet Practic tablet tablet Take 1 e twice a day twice a day tablet by oral by oral twice a route with route with day by meals for meals for oral route 90 days. 90 days. with meals for 90 days. hydrochloro hydrochloro No 1capsul Q1D hydrochlor [facility] thiazide thiazide e(s) othiazide Fa nando 12.5 mg 12.5 mg 12.5 mg Practi c capsule capsule capsule e Take 1 Take 1 Take 1 capsule capsule capsule every day every day every day by oral by oral by oral route for route for route for 90 days. 90 days. 90 days. losartan losartan No losartan Berna guanaco 100 mg 100 mg 100 mg Family tablet Take tablet Take tablet Practic 1 tablet 1 tablet Take 1 e every day every day tablet by oral by oral every day route for route for by oral 90 days. 90 days. route for 90 days. losartan losartan No losartan Berna guanaco 100 100 100 Family mg-hydrochl mg-hydrochl mg-hydroch Practic orothiazide orothiazide lorothiazi e 12.5 mg 12.5 mg de 12.5 mg tablet Take tablet Take tablet 1 tablet 1 tablet Take 1 every day every day tablet by oral by oral every day route for route for by oral 90 days. 90 days. route for 90 days. losartan losartan No 1 Q1D losartan Berna álvareze 100 100 100 Family mg-hydrochl mg-hydrochl mg-hydroch Practic orothiazide orothiazide lorothiazi e 25 mg 25 mg de 25 mg tablet Take tablet Take tablet 1 tablet 1 tablet Take 1 every day every day tablet by oral by oral every day route for route for by oral 90 days. 90 days. route for 90 days. metformin metformin No 2 BID metformin [place] 500 mg 500 mg 500 mg Family tablet 2 tablet 2 tablet 2 Pra ctic tablets tablets tablets e twice a day twice a day twice a by oral by oral day by route. route. oral route. metformin metformin No 2 BID metformin [place] ER 500 mg ER 500 mg ER 500 mg Family tablet,exte tablet,exte tablet,ext Practic nded nded ended e release 24 release 24 release 24 hr Take 2 hr Take 2 hr Take 2 tablets tablets tablets twice a day twice a day twice a by oral by oral day by route with route with oral route meals for meals for with meals 90 days. 90 days. for 90 days. OneTouch OneTouch No OneTouch Berna guanaco Delica Plus Delica Plus Delica Family Lancet 30 Lancet 30 Plus Pract ic gauge USE gauge USE Lancet 30 e DIRECTED DIRECTED gauge USE TWICE A DAY TWICE A DAY DIRECTED TWICE A DAY OneTouch OneTouch No OneTouch Berna guanaco Verio test Verio test Verio test Family strips Take strips Take strips Practic 2 strips 2 strips Take 2 e every day every day strips by miscell. by miscell. every day route for route for by 90 days. 90 days. miscell. route for 90 days. Ozempic Ozempic No Ozempic [place] 0.25 mg or 0.25 mg or 0.25 mg or Family 0.5 mg (2 0.5 mg (2 0.5 mg (2 Practic mg/1.5 mL) mg/1.5 mL) mg/1.5 mL) e subcutaneou subcutaneou subcutaneo s pen s pen us pen injector injector injector INJECT 0.5 INJECT 0.5 INJECT 0.5 MG MG MG SUBCUTANEOU SUBCUTANEOU SUBCUTANEO SLY EVERY SLY EVERY USLY EVERY WEEK FOR 30 WEEK FOR 30 WEEK FOR DAYS. DAYS. 30 DAYS. Ozempic 1 Ozempic 1 No Ozempic 1 [place] mg/dose (4 mg/dose (4 mg/dose (4 Family mg/3 mL) mg/3 mL) mg/3 mL) Pra ctic subcutaneou subcutaneou subcutaneo e s pen s pen us pen injector injector injector INJECT 1 MG INJECT 1 MG INJECT 1 SUBCUTANEOU SUBCUTANEOU MG SLY EVERY SLY EVERY SUBCUTANEO WEEK FOR 30 WEEK FOR 30 USLY EVERY DAYS. DAYS. WEEK FOR 30 DAYS. Ozempic 2 Ozempic 2 No 2mg Q1W Ozempic 2 [place] mg/dose (8 mg/dose (8 mg/dose (8 Family mg/3 mL) mg/3 mL) mg/3 mL) Pra ctic subcutaneou subcutaneou subcutaneo e s pen s pen us pen injector injector injector Inject 2 mg Inject 2 mg Inject 2 every week every week mg every by by week by subcutaneou subcutaneou subcutaneo s route for s route for us route 90 days. 90 days. for 90 days. aspirin 81 aspirin 81 No 1capsul Q1D aspirin 81 Village mg capsule mg capsule e(s) mg capsule Family Take 1 Take 1 Take 1 Practic capsule capsule capsule e every day every day every day by oral by oral by oral route. route. route. Farxiga 10 Farxiga 10 No 1 Q1D Farxiga 10 [facility] mg tablet mg tablet mg tablet Family Take 1 Take 1 Take 1 Practic tablet tablet tablet e every day every day every day by oral by oral by oral route in route in route in the morning the morning the for 30 for 30 morning days. days. for 30 days. glimepiride glimepiride No 1 BID glimepirid [facility] 4 mg tablet 4 mg tablet e 4 mg Family Take 1 Take 1 tablet Practic tablet tablet Take 1 e twice a day twice a day tablet by oral by oral twice a route with route with day by meals for meals for oral route 90 days. 90 days. with meals for 90 days. hydrochloro hydrochloro No 1capsul Q1D hydrochlor [facility] thiazide thiazide e(s) othiazide Fa nando 12.5 mg 12.5 mg 12.5 mg Practi c capsule capsule capsule e Take 1 Take 1 Take 1 capsule capsule capsule every day every day every day by oral by oral by oral route for route for route for 90 days. 90 days. 90 days. hydrochloro hydrochloro No 1 Q1D hydrochlor [facility] thiazide thiazide othiazide Monico collier 12.5 mg 12.5 mg 12.5 mg Practi c tablet Take tablet Take tablet e 1 tablet 1 tablet Take 1 every day every day tablet by oral by oral every day route for route for by oral 90 days. 90 days. route for 90 days. losartan losartan No 1 Q1D losartan Berna guanaco 100 mg 100 mg 100 mg Family tablet Take tablet Take tablet Practic 1 tablet 1 tablet Take 1 e every day every day tablet by oral by oral every day route for route for by oral 90 days. 90 days. route for 90 days. metformin metformin No 2 BID metformin [facility] ER 500 mg ER 500 mg ER 500 mg Family tablet,exte tablet,exte tablet,ext Practic nded nded ended e release 24 release 24 release 24 hr Take 2 hr Take 2 hr Take 2 tablets tablets tablets twice a day twice a day twice a by oral by oral day by route with route with oral route meals for meals for with meals 90 days. 90 days. for 90 days. OneTouch OneTouch No 2strip( Q1D Oneuch [facility] Verio test Verio test s) Verio test Family strips Take strips Take strips Practic 2 strips 2 strips Take 2 e every day every day strips by miscell. by miscell. every day route for route for by 90 days. 90 days. miscell. route for 90 days. Ozempic Ozempic No .5mg Q1W Ozempic Vill[facility] e 0.25 mg or 0.25 mg or 0.25 mg or Family 0.5 mg (2 0.5 mg (2 0.5 mg (2 Practic mg/1.5 mL) mg/1.5 mL) mg/1.5 mL) e subcutaneou subcutaneou subcutaneo s pen s pen us pen injector injector injector Inject 0.5 Inject 0.5 Inject 0.5 mg every mg every mg every week by week by week by subcutaneou subcutaneou subcutaneo s route for s route for us route 30 days. 30 days. for 30 days. aspirin 81 aspirin 81 No 1capsul Q1D aspirin 81 [place] mg capsule mg capsule e(s) mg capsule Family Take 1 Take 1 Take 1 Practic capsule capsule capsule e every day every day every day by oral by oral by oral route. route. route. diclofenac diclofenac No diclofenac [facility] sodium 75 sodium 75 sodium 75 Family mg mg mg Practic tablet,lili tablet,lili tablet,del e yed release yed release ayed TAKE 1 TAKE 1 release TABLET BY TABLET BY TAKE 1 MOUTH TWICE MOUTH TWICE TABLET BY A DAY A DAY MOUTH TWICE A DAY Equate Equate No Equate [facility] Aspirin Aspirin Aspirin Family Practic e Farxiga 10 Farxiga 10 No 1 Q1D Farxiga 10 [place] mg tablet mg tablet mg tablet Family Take 1 Take 1 Take 1 Practic tablet tablet tablet e every day every day every day by oral by oral by oral route in route in route in the morning the morning the for 30 for 30 morning days. days. for 30 days. FreeStyle FreeStyle No FreeStyle [facility] Ashu 2 Ashu 2 Ashu 2 Family Sensor kit Sensor kit Sensor kit Practic USE USE USE e DIRECTED DIRECTED DIRECTED DAILY BUT DAILY BUT DAILY BUT CHANGE CHANGE CHANGE EVERY 14 EVERY 14 EVERY 14 DAYS DAYS DAYS glimepiride glimepiride No 1 BID glimepirid [facility] 4 mg tablet 4 mg tablet e 4 mg Family Take 1 Take 1 tablet Practic tablet tablet Take 1 e twice a day twice a day tablet by oral by oral twice a route with route with day by meals for meals for oral route 90 days. 90 days. with meals for 90 days. hydrochloro hydrochloro No 1capsul Q1D hydrochlor [facility] thiazide thiazide e(s) othiazide Fa nando 12.5 mg 12.5 mg 12.5 mg Practi c capsule capsule capsule e Take 1 Take 1 Take 1 capsule capsule capsule every day every day every day by oral by oral by oral route for route for route for 90 days. 90 days. 90 days. losartan losartan No losartan Berna guanaco 100 mg 100 mg 100 mg Family tablet Take tablet Take tablet Practic 1 tablet 1 tablet Take 1 e every day every day tablet by oral by oral every day route for route for by oral 90 days. 90 days. route for 90 days. losartan losartan No 1 Q1D losartan Berna guanaco 100 100 100 Family mg-hydrochl mg-hydrochl mg-hydroch Practic orothiazide orothiazide lorothiazi e 12.5 mg 12.5 mg de 12.5 mg tablet Take tablet Take tablet 1 tablet 1 tablet Take 1 every day every day tablet by oral by oral every day route for route for by oral 90 days. 90 days. route for 90 days. metformin metformin No 2 BID metformin [facility] 500 mg 500 mg 500 mg Family tablet 2 tablet 2 tablet 2 Pra ctic tablets tablets tablets e twice a day twice a day twice a by oral by oral day by route. route. oral route. Immunizations Ordered Filled Immunization Date Status Comments [facility] e Immunization Name Name COVID-19, mRNA, COVID-19, mRNA, 2022-05-27 Completed Vill age Family LNP-S, PF, 30 LNP-S, PF, 30 00:00:00 Practice mcg/0.3 mL dose, mcg/0.3 mL dose, alanna-sucrose alanna-sucrose (Zap[employer]chNTech) - ([employer]) - ML ML COVID-19, mRNA, COVID-19, mRNA, 2021-11-03 Completed Vill age Family LNP-S, PF, 30 LNP-S, PF, 30 00:00:00 Practice mcg/0.3 mL dose mcg/0.3 mL dose (Satago[employer]NTech) - ([employer], [place]-BioNT[employer]) - ML ML Non-US Vaccine Non-US Vaccine 2021-08-06 Completed [facility] COVID-19 IV COVID-19 IV 00:00:00 Practice (QAZCOVID-IN) (QAZCOVID-IN) Non-US Vaccine Non-US Vaccine 2021-08-06 Completed [facility] COVID-19 IV COVID-19 IV 00:00:00 Practice (QAZCOVID-IN) (QAZCOVID-IN) Non-US Vaccine Non-US Vaccine 2021-08-06 Completed [facility] COVID-19 IV COVID-19 IV 00:00:00 Practice (QAZCOVID-IN) (QAZCOVID-IN) Non-US Vaccine Non-US Vaccine 2020-12-07 Completed [facility] COVID-19 IV COVID-19 IV 00:00:00 Practice (QAZCOVID-IN) (QAZCOVID-IN) Non-US Vaccine Non-US Vaccine 2020-12-07 Completed [facility] COVID-19 IV COVID-19 IV 00:00:00 Practice (QAZCOVID-IN) (QAZCOVID-IN) Non-US Vaccine Non-US Vaccine 2020-12-07 Completed [facility] COVID-19 IV COVID-19 IV 00:00:00 Practice (QAZCOVID-IN) (QAZCOVID-IN) Non-US Vaccine Non-US Vaccine 2020-11-21 Completed [facility] COVID-19 IV COVID-19 IV 00:00:00 Practice (QAZCOVID-IN) (QAZCOVID-IN) Non-US Vaccine Non-US Vaccine 2020-11-21 Completed [facility] COVID-19 IV COVID-19 IV 00:00:00 Practice (QAZCOVID-IN) (QAZCOVID-IN) Non-US Vaccine Non-US Vaccine 2020-11-21 Completed [facility] COVID-19 IV COVID-19 IV 00:00:00 Practice (QAZCOVID-IN) (QAZCOVID-IN) Zoster Vaccine 2020-07-20 Completed University of Recombinant 00:00:00 [facility] TDAP 2020-07-20 Completed University of 00:00:00 [facility] Zoster Vaccine 2020-07-20 Completed University of Recombinant 00:00:00 [facility] TDAP 2020-07-20 Completed University of 00:00:00 [facility] Zoster Vaccine 2020-07-20 Completed University of Recombinant 00:00:00 [facility] TDAP 2020-07-20 Completed University of 00:00:00 [facility] Zoster Vaccine 2020-07-20 Completed University of Recombinant 00:00:00 [facility] TDAP 2020-07-20 Completed University of 00:00:00 [facility] Zoster Vaccine 2020-07-20 Completed University of Recombinant 00:00:00 [facility] TDAP 2020-07-20 Completed University of 00:00:00 [facility] Zoster Vaccine 2020-07-20 Completed University of Recombinant 00:00:00 [facility] TDAP 2020-07-20 Completed University of 00:00:00 [facility] Zoster Vaccine 2020-07-20 Completed University of Recombinant 00:00:00 [facility] TDAP 2020-07-20 Completed University of 00:00:00 [facility] Zoster Vaccine 2020-07-20 Completed University of Recombinant 00:00:00 [facility] TDAP 2020-07-20 Completed University of 00:00:00 [facility] Zoster Vaccine 2020-07-20 Completed University of Recombinant 00:00:00 [facility] TDAP 2020-07-20 Completed University of 00:00:00 [facility] Zoster Vaccine 2020-07-20 Completed University of Recombinant 00:00:00 [facility] TDAP 2020-07-20 Completed University of 00:00:00 [facility] Influenza Virus 2020-07-07 Completed Universit y of Vaccine 00:00:00 [facility] Pneumococcal 2020-07-07 Completed University o f Polysaccharide, 00:00:00 [place] [facility] PPSV23 (PNEUMOVAX) [place] Influenza Virus 2020-07-07 Completed Universit y of Vaccine 00:00:00 [facility] Pneumococcal 2020-07-07 Completed University o f Polysaccharide, 00:00:00 [place] [facility] PPSV23 (PNEUMOVAX) [place] Influenza Virus 2020-07-07 Completed Universit y of Vaccine 00:00:00 [facility] Pneumococcal 2020-07-07 Completed University o f Polysaccharide, 00:00:00 [place] [facility] PPSV23 (PNEUMOVAX) [place] Influenza Virus 2020-07-07 Completed Universit y of Vaccine 00:00:00 [facility] Pneumococcal 2020-07-07 Completed University o f Polysaccharide, 00:00:00 [place] [facility] PPSV23 (PNEUMOVAX) [place] Influenza Virus 2020-07-07 Completed Universit y of Vaccine 00:00:00 [facility] Pneumococcal 2020-07-07 Completed University o f Polysaccharide, 00:00:00 [place] [facility] PPSV23 (PNEUMOVAX) [place] Influenza Virus 2020-07-07 Completed Universit y of Vaccine 00:00:00 [facility] Pneumococcal 2020-07-07 Completed University o f Polysaccharide, 00:00:00 [place] [facility] ical PPSV23 (PNEUMOVAX) [place] Influenza Virus 2020-07-07 Completed Universit y of Vaccine 00:00:00 [facility] Pneumococcal 2020-07-07 Completed University o f Polysaccharide, 00:00:00 [place] [facility] ical PPSV23 (PNEUMOVAX) [place] Influenza Virus 2020-07-07 Completed Universit y of Vaccine 00:00:00 [facility] Pneumococcal 2020-07-07 Completed University o f Polysaccharide, 00:00:00 [place] [facility] ical PPSV23 (PNEUMOVAX) [facility] Influenza Virus 2020-07-07 Completed Universit y of Vaccine 00:00:00 [facility] Pneumococcal 2020-07-07 Completed University o f Polysaccharide, 00:00:00 [place] [facility] ical PPSV23 (PNEUMOVAX) Branch Influenza Virus 2020-07-07 Completed Universit y of Vaccine 00:00:00 [facility] Pneumococcal 2020-07-07 Completed University o f Polysaccharide, 00:00:00 [place] [facility] ical PPSV23 (PNEUMOVAX) [facility] Vital Signs Vital Name Observation Time Observation Value Comments Source BP Diastolic 2023-02-22 00:00:00 96 mm[Hg] [facility] Height 2023-02-22 00:00:00 71 [in_i] [facility] BMI (Body Mass 2023-02-22 00:00:00 35.8 kg/m2 [facility] Index) Practice BP Systolic 2023-02-22 00:00:00 157 mm[Hg] [facility] Body Weight 2023-02-22 00:00:00 256.8 [lb_av] [facility] BP Diastolic 2022-10-24 00:00:00 102 mm[Hg] [facility] Height 2022-10-24 00:00:00 71 [in_i] [facility] BMI (Body Mass 2022-10-24 00:00:00 37.1 kg/m2 [facility] Index) Practice BP Systolic 2022-10-24 00:00:00 171 mm[Hg] [facility] Body Weight 2022-10-24 00:00:00 266 [lb_av] [facility] BP Diastolic 2021-12-28 00:00:00 89 mm[Hg] [facility] Height 2021-12-28 00:00:00 71 [in_i] [facility] BMI (Body Mass 2021-12-28 00:00:00 38.4 kg/m2 [facility] Index) Practice BP Systolic 2021-12-28 00:00:00 127 mm[Hg] [facility] Body Weight 2021-12-28 00:00:00 275 [lb_av] [facility] Systolic blood 2023-02-28 14:44:10 161 mm[Hg] Univer sity of pressure [facility] Diastolic blood 2023-02-28 14:44:10 99 mm[Hg] Unive rsity of pressure [place] [facility] Heart rate 2023-02-28 14:44:10 85 /min [facility] [place] [facility] Respiratory rate 2023-02-28 14:43:34 16 /min [facility] [place] [facility] Body weight 2023-02-28 14:43:34 116.5 kg [facility] [place] [facility] BMI 2023-02-28 14:43:34 39.61 kg/m2 [facility] [place] [facility] Oxygen saturation in 2023-02-28 14:43:34 98 /min [place] [facility] Arterial blood by Kimberlyn goddard Pulse oximetry [facility] Body temperature 2022-08-30 15:36:00 37 [facility] Procedures Procedure Date / Time Performing Clinician Source Performed COMPLETE BLOOD COUNT W/ 2023-02-28 14:04:20 Ramiro Pratt [facility] DIFFERENTIAL [facility] COMPREHENSIVE METABOLIC 2023-02-28 14:04:20 Ramiro Pratt [facility] PANEL [facility] FERRITIN LVL 2023-02-28 14:04:[address] [facility] VITAMIN B12 LEVEL 2023-02-28 14:04:20 Ramiro Pratt [facility] Results CBC 2023-02-28 14:04:[address] [facility] MANUAL DIFFERENTIAL 2023-02-28 14:04:20 Ramiro Pratt [facility] GLUCOSE LEVEL 2023-02-28 14:04:[address] [facility] BLOOD UREA NITROGEN 2023-02-28 14:04:20 Ramiro Pratt [facility] ELECTROLYTE PANEL 2023-02-28 14:04:20 Ramiro Pratt [facility] SERUM CREATININE 2023-02-28 14:04:20 Ramiro Pratt [facility] .GLOMERULAR FILTRATION 2023-02-28 14:04:20 [facility] CALCIUM LEVEL TOTAL 2023-02-28 14:04:20 Ramiro Pratt [facility] ALBUMIN LEVEL 2023-02-28 14:04:[address] [facility] ALKALINE PHOSPHATASE 2023-02-28 14:04:20 Ramiro Pratt [facility] ALANINE AMINOTRANSFERASE 2023-02-28 14:04:20 Ramiro Pratt [facility] ASPARTATE AMINOTRANSFERASE 2023-02-28 14:04:20 [facility]amiro [facility] TOTAL PROTEIN 2023-02-28 14:04:[address] [facility] FRACTIONATED BILIRUBIN 2023-02-28 14:04:20 [facility] HEMOGLOBIN 2023-02-20 13:27:00 [facility] HEMOGLOBIN 2022-11-14 14:23:00 [facility] EXTRA TUBE LAV 2022-11-14 14:23:00 [facility] HEMOGLOBIN 2022-10-03 15:08:00 [facility] COMPLETE BLOOD COUNT W/ 2022-08-30 15:17:02 Ramiro Pratt [facility] DIFFERENTIAL [facility] COMPREHENSIVE METABOLIC 2022-08-30 15:17:02 Ramiro Pratt [facility] PANEL [facility] FERRITIN LVL 2022-08-30 15:17:[address] [facility] Results CBC 2022-08-30 15:17:[address] [facility] MANUAL DIFFERENTIAL 2022-08-30 15:17:02 Ramiro Pratt [facility] GLUCOSE LEVEL 2022-08-30 15:17:[address] [facility] BLOOD UREA NITROGEN 2022-08-30 15:17:02 Ramiro Pratt [facility] ELECTROLYTE PANEL 2022-08-30 15:17:02 Ramiro Pratt [facility] SERUM CREATININE 2022-08-30 15:17:02 Ramiro Pratt [facility] .GLOMERULAR FILTRATION 2022-08-30 15:17:02 Ramiro Pratt [facility] CALCIUM LEVEL TOTAL 2022-08-30 15:17:02 Ramiro Pratt [facility] ALBUMIN LEVEL 2022-08-30 15:17:[address] [facility] ALKALINE PHOSPHATASE 2022-08-30 15:17:02 Ramiro Pratt [facility] ALANINE AMINOTRANSFERASE 2022-08-30 15:17:02 Ramiro Pratt [facility] ASPARTATE AMINOTRANSFERASE 2022-08-30 15:17:02 Ramiro Pratt [facility] TOTAL PROTEIN 2022-08-30 15:17:[address] [facility] FRACTIONATED BILIRUBIN 2022-08-30 15:17:02 [facility] HEMOGLOBIN 2022-08-08 13:26:00 Cassandra Santana o [facility] THERAPEUTIC PHLEBOTOMY 2022-05-03 05:01:00 Doctor Unassigned, Un [facility] NOTES [facility] Plan of Care Planned Activity Planned Date Details Comments Source Future Scheduled Test 2023-03-08 COVID-[address] [facility] 08:15:58 (3 - Booster for MD T[facility] Cancer Pfizer series) [code Center = COVID-19 Vaccination (3 - Booster for Pfizer series)] Diagnostic Test 2023-02-22 hemoglobin A1C, [facility] F amily Pending 00:00:00 fingerstick [code = Practice hemoglobin A1C, fingerstick] Diagnostic Test 2023-02-22 glucose, Shravan Fami ly Pending 00:00:00 fingerstick, blood Practice [code = glucose, fingerstick, blood] Future Appointment 2023-08-24 Amna Ying 00:00:[id number], [place] [address] Future Appointment 2023-08-21 Amna Ying 07:00:[id number]; [address], [place] [address] Encounters Start End Encounter Admission Attending Care Care Encounter Source Date/Time Date/Time Type Type Clinicians Facility Department ID 2023-03-07 2023-03-07 Tomeka Young2.840.1 [id number] Univers 00:00:00 00:00:00 Only Ramiro Shaw [id number] ity of 3.412.2.7 [place] .3.855378 .8 [facility] 2023-02-28 2023-02-28 Follow-Up Erin Peterson 1.2.840.1 [id number] [facility] 10:00:00 10:00:00 Ramiro Pratt [id number] ity of 3.412.2.7 [place] .3.442722 MD Marte [facility] 2023-02-28 2023-02-28 Outpatient ERIN [facility] [id number] 09:08:01 09:57:33 Steve huston 2023-02-28 2023-02-28 Outpatient PARIS PRATT MDA MDA [id number] 08:57:08 09:05:28 RAMIRO huston 2023-02-28 2023-02-28 Travel 1.2.840.1 [id number] Univers 00:00:00 00:00:00 [id number] 350.1.13.41 ity of 3.412.2.7 [place].3.698 [place] .3.995[place] 084.8 .8 [facility] 2023-02-22 2023-02-22 Outpatient Daniel_T VFP VFP [id number] [address] [place] [address] 00:00:00 00:00:00 [id number] Family Practic e 2023-02-22 2023-02-22 Outpatient Issac_T VFP VFP [id number] [address] [place] [address] 00:00:00 00:00:00 [id number] Family Practic e 2023-02-22 2023-02-22 Dell VFP [place] - [id number] V illage 00:00:00 00:00:[address] [facility] [place], Medical - Pracalden salgado MD: [id number] [place] - e Shadow VM_HOU_[address], [place] [address] , Ph. 2023-02-20 2023-02-20 Teaching Associate Phleb, [facility] UNIVERSI T [id number] Univers 08:45:00 09:00:00 Visit Cassandra Santana [facility] 350.1.13.10 ity of CL[place] [id number] [facility] [address] Branch 2023-02-20 2023-02-20 Outpatient R CASSANDRA SANTANA [facility] [id number] Univers 08:45:00 08:45:00 ity [facility] 2023-02-20 2023-02-20 Outpatient Issac_T VFP VFP [id number] [address] [place] [address] 00:00:00 00:00:00 [id number] Family Practic e 2022-11-14 2022-11-14 Hospital Cassandra Santana 1.2.840.114 [id number] Univers 13:20:00 23:59:00 Encounter H 350.1.13.10 ity of BUILDING 4.2.7.2.686 [place] [id number] [facility] 031 Branch 2022-11-14 2022-11-14 Outpatient R MAX [facility] [id number] Univers 00:00:00 23:59:00 ity [facility] 2022-10-24 2022-10-24 Outpatient Issac_T VFP VFP [id number] 5-20 Village 00:00:00 00:00:00 [id number] Family Practic e 2022-10-24 2022-10-24 Dell VFP [place] - [id number] V illage 00:00:00 00:00:00 Johan [facility] Family Issac, Tyson - Pracalden salgado MD: [id number] [place] - e Shadow VM_HOU_Sh[address], [address], [place] [address] , Ph. 2022-10-13 2022-10-13 Case Cassandra Santana [facility] .2.840.114 [id number] Univers 00:00:00 00:00:00 Management Y HEALTH 350.1.13.10 ity of CL[place] [id number] [place] [id number] Branch 2022-10-04 2022-10-04 Telephone Nolan 1.2.840.1 [id number] Univers 00:00:00 00:00:00 Ramiro Shaw [id number] ity of 3.412.2.7 [place] .3.913902 .8 [facility] 2022-10-03 2022-10-03 [facility] Erin Peterson 1.2.840.114 [id number] Univers 13:14:00 23:59:00 Encounter Rp H 350.1.13.10 ity of BUILDING 4.2.7.2.686 [place] [id number] [facility] 031 Branch 2022-10-03 2022-10-03 Outpatient R ERIN PETERSON [facility] [id number] Univers 00:00:00 23:59:00 ity of [facility] 2022-08-31 2022-08-31 Case Cassandra Santana 1.2.840.114 [id number] Univers 00:00:00 00:00:00 Management H 350.1.13.10 ity of BUILDING 4.2.7.2.686 [place] [id number] [place] [id number] Branch 2022-08-30 2022-08-30 Office Erin Peterson 1.2.840.1 [id number] Univers 11:00:00 11:06:46 Visit Rp [id number] ity of 3.412.2.7 [place] .3.116272 MD Marte [facility] 2022-08-30 2022-08-30 Outpatient PARIS [facility]IN [facility] [id number] 10:19:43 11:06:46 Steve huston 2022-08-30 2022-08-30 Outpatient PARIS PRATT MDA [facility] [id number] 10:09:19 10:09:52 RAMIRO huston 2022-08-30 2022-08-30 Roxanne Pratt 1.2.840.1 [id number] Univers 00:00:00 00:00:00 Only Ramiro Sahw 03467.1.1 ity of 3.412.2.7 [place] .3.623279 MD Marte [facility] 2022-08-30 2022-08-30 Travel 1.2.840.1 1.2.629.549 [id number] Univers 00:00:00 00:00:00 [id number] 350.1.13.41 ity of 3.412.2.7 2.[place]7.3.698 [place] .3.226499 084.8 MD Estuardo huston [facility] 2022-08-09 2022-08-09 Roxanne Pratt 1.2.840.1 [id number] Univers 00:00:00 00:00:00 Only Ramiro Shaw 29024.1.1 ity of 3.412.2.7 [place] .3.053135 MD Marte [facility] [place] 2022-08-08 2022-08-08 [facility] Cassandra Santana 1.2.840.114 [id number] Univers 09:46:00 23:59:00 Encounter H 350.1.13.10 ity of BUILDING 4.2.7.2.686 [place] [id number] [facility] 031 Branch 2022-08-08 2022-08-08 Outpatient R CASSANDRA SANTANA [facility] [id number] Univers 00:00:00 23:59:00 ity of [facility] 2022-05-03 2022-05-03 Teaching Associate [facility]ERS[facility] 1.2.840.114 [id number] Univers 08:45:00 09:00:00 Visit Erin Peterson Rp Y HEALTH 350.1.13.10 ity of [facility] 4.[place] [id number] [facility] [address] [place] 2022-05-03 2022-05-03 Outpatient R ERIN PETERSON [facility] [id number] Univers 08:45:00 08:45:00 ity of [facility] 2022-05-03 2022-05-03 Orders Doctor MELVIN 1.2.840.114 [id number] Univers 00:00:00 00:00:00 Only Unassigned, BIJAN 350.1.13.10 ity of [place] [facility] 4.2.7.2.686 [place] [id number] [facility] [address] 2022-03-08 2022-03-08 Outpatient R ERIN PETERSON [facility] ACN [id number] Univers 08:00:00 23:59:00 ity of [facility] 2022-03-08 2022-03-08 Hospital Erin Peterson TED [id number] Univers 08:00:00 23:59:00 Encounter Rp H 350.1.13.10 ity of [facility] 4.2.7.2.686 [place] [id number] [facility] [address] 2022-01-25 2022-01-25 Outpatient ERIN SCHAFER MDA MDA [id number] 09:37:54 10:15:04 Steve huston 2022-01-11 2022-01-11 Outpatient PARIS PRATT MDA MDA [id number] 13:01:48 13:03:53 RAMIRO huston 2022-01-11 2022-01-11 Outpatient ERIN SCHAFER MDA MDA [id number] 00:00:00 00:00:00 Steve huston 2022-01-01 2022-01-01 Outpatient Daniel_T VFP VFP [id number] [address] [place] [address] 03:41:00 03:41:00 [id number] Family Practic e 2021-12-28 2021-12-28 [facility] Erin Peterson TED [id number] Univers 11:53:00 23:59:00 Encounter Rp H 350.1.13.10 ity of BUILDING 4.2.7.2.686 [place] [id number] [address] 2021-12-28 2021-12-28 Outpatient R ERIN PETERSON [facility] ACN [id number] Univers 00:00:00 23:59:00 ity of [facility] 2021-12-28 2021-12-28 Outpatient Daniel_T VFP VFP [id number] [address] [place] [address] 05:10:00 05:10:00 [id number] Family Practic e 2021-12-28 2021-12-28 [place] VFP [place] - [id number] V illage 00:00:00 00:00:00 [facility] Family Issac, Medical - Pracalden salgado MD: [id number] VM_RENATOU_Antony e Shadow [facility] [place] [facility], [address], [place] [address] , Ph. 2021-12-13 2021-12-13 Outpatient Daniel_T VFP VFP [id number] [address] [place] [address] 04:52:00 04:52:00 [id number] Family Practic e 2021-12-13 2021-12-13 Outpatient Daniel_T VFP VFP [id number] [address] [place] [address] 04:52:00 04:52:00 [id number] Family Practic e 2021-11-16 2021-11-16 Outpatient R CASSANDRA SANTANA [facility] AC[facility] [id number] Univers 11:58:00 23:59:00 ity of [facility] 2021-11-16 2021-11-16 [facility] Cassandra Santana 1.2.840.114 [id number] Univers 11:58:00 23:59:00 Encounter H 350.1.13.10 ity of BUILDING 4.2.7.2.686 [place] [id number] [address] 2021-10-26 2021-10-26 Refmorteza Davenport [facility] 1.2.840.114 [id number] Univers 00:00:00 00:00:00 [place] MOBILE 350.1.13.10 i ty [place] [employer] [id number] Vt dical [facility] [address] BUILDING 2021-09-07 2021-09-07 Outpatient R ERIN PETERSON [facility] ACN [id number] Univers 08:33:00 23:59:00 ity of [facility] 2021-09-07 2021-09-07 [facility] Kristen Odiliamaya JEAN 1.2.840.114 [id number] Univers 08:33:00 23:59:00 Encounter Rp H 350.1.13.10 ity of BUILDING 4.2.7.2.686 [place] [id number] [address] 2021-07-13 2021-07-13 [facility] Cassandra Santana 1.2.840.114 [id number] Univers 08:58:00 23:59:00 Encounter H 350.1.13.10 ity of BUILDING 4.2.7.2.686 [place] [id number] [address] 2021-07-13 2021-07-13 Outpatient R CASSANDRA SANTANA [facility] AC[facility] [id number] Univers 00:00:00 00:00:00 ity of [facility] 2021-07-07 2021-07-07 Case Cassandra Santana [facility] 1.2.840.114 [id number] Univers 00:00:00 00:00:00 Management Y HEALTH 350.1.13.10 [place] [id number] [address] 2021-07-06 2021-07-06 Outpatient ERIN SCHAFER MDA, MDA [id number] 10:22:44 10:56:33 Steve huston 2021-07-05 2021-07-05 Outpatient PARIS MUSA MDA MDA [id number] 08:36:56 08:39:34 FLAVY Steve huston 2021-06-01 2021-06-01 Outpatient R ETHEL [facility] [id number] Univers 11:00:00 11:00:00 WENTONG ity [facility] 2021-02-02 2021-02-02 Outpatient R ETHEL [facility] [id number] Univers 14:00:00 14:00:00 ISRAELONG ity [facility] 2020-12-29 2020-12-29 Outpatient R MAX [facility] ACN [id number] Univers 13:14:00 13:14:00 ity [facility] 2020-12-23 2020-12-23 Outpatient R HENRYHOUSTON COOKWYColin [facility] [id number] Univers 10:30:00 10:30:00 MARTITA VENEGAS ity [facility] 2020-10-20 2020-10-20 Outpatient R MAX [facility] ACN [id number] Univers 11:19:00 11:19:00 ity [facility] 2020-09-25 2020-09-25 Outpatient R AMANDA [facility] [id number] Univers 07:45:00 07:45:00 ity [facility] 2020-09-25 2020-09-25 Outpatient R AMANDA [facility] [id number] Univers 00:00:00 00:00:00 ity [facility] 2020-09-22 2020-09-22 [facility] [id number] Univers 11:30:00 11:30:00 [facility] ity [facility] 2020-09-16 2020-09-16 Outpatient R HENRYHOUSTON COOKWYColin [facility] [id number] Univers 16:30:00 16:30:00 ATAMARTITA COOK ity [facility] 2020-08-11 2020-08-11 Outpatient R [facility]UMM [facility] [id number] Univers 09:00:00 09:00:00 HENRYMARTITA COOK ity [facility] 2020-08-07 2020-08-07 Outpatient R [facility] [id number] Univers 08:15:00 08:15:00 ity [facility] 2020-07-27 2020-07-27 [facility] [id number] Univers 10:30:00 10:30:00 ZACH elif o f [facility] 2020-07-20 2020-07-20 Outpatient R AMANDA [facility] [id number] Univers 15:00:00 15:00:00 SENDIL [facility] 2020-07-15 2020-07-15 Outpatient R [facility] [id number] Univers 09:00:00 09:00:00 [facility] 2020-07-14 2020-07-14 Outpatient R TAMRA [facility] [id number] Univers 16:00:00 16:00:00 ZACH elif o f [facility] 2020-06-30 2020-06-30 Outpatient ERIN SCHAFER MDA MDA [id number] 11:08:42 12:24:18 Steve huston 2020-06-30 2020-06-30 Outpatient PARIS MUSA, MDA MDA [id number] 00:00:00 00:00:00 FARIDA huston 2020-06-30 2020-06-30 Outpatient Tg SANTANA CASSANDRA [facility] [id number] Univers 00:00:00 00:00:00 [facility] 2020 2020 Outpatient ERIN SCHAFER MDA MDA [id number] 00:00:00 00:00:00 Steve huston 2020 2020 Outpatient PARIS MUSA MDA MDA [id number] 00:00:00 00:00:00 FARIDA huston 2020-06-17 2020-06-17 Outpatient Tg DAVENPORT [facility] [id number] Univers 09:00:00 09:00:00 WENTONG [facility] 2020-06-16 2020-06-16 Outpatient R MAX [facility]ASSANDRA [facility] [id number] Univers [facility]-24 2020-03-24 Outpatient CASSANDRA DANG [facility] [id number] Univers 00:00:00 00:00:00 [facility] 2020-02-12 2020-02-12 Outpatient R ETHEL [facility] [id number] Univers 15:00:00 15:00:00 WENTONG [facility] 2019-10-06 2019-10-08 Outpatient CLARKE BA[facility]ES [facility] [id number] Univers 11:46:32 17:57:00 [facility] Results Test Description Test Time Test Comments Results Result Comments Source Hemoglobin A1c measurement device panel 2023-02-22 08:08:05 Test Item Value Reference Range Interpretation Comme nts Hemoglobin A1c/Hemoglobin.total in Blood (test code = 4548-4) 7.1 % 5.7-6.4 [facility] in Capillary [id number] 08:04:43 Test Item Value Reference Range Interpretation Comments Blood Glucose: mg/dl (test code = Blood 94 Glucose: mg/dl) [id number] 19:25:41 Test Item Value Reference Range Interpretation Comments HGB (test code = 718-7) 16.4 g/dL 12.2-16.4 Lab Interpretation (test code = Normal 25549-1) [facility] 13:10:42 Test Item Value Reference Range Interpretation Comments HGB (test code = 718-7) 15.7 g/dL 12.2-16.4 Lab Interpretation (test code = Normal 08368-1) [facility] 2022-10-24 14:25:09 Test Item Value Reference Range Interpretation Comments Hemoglobin A1c/Hemoglobin.total in 9.6 % 5.7-6.4 Blood (test code = 4548-4) [id number] 20:27:51 Test Item Value Reference Range Interpretation Comments HGB (test code = 718-7) 17.3 g/dL 12.2-16.4 H Lab Interpretation (test code = Abnormal 56849-0) [facility]2022-[facility]-03 18:49:01 Test Item Value Reference Range Interpretation Comments HGB (test code = 718-7) 17.4 g/dL 12.2-16.4 H Lab Interpretation (test code = Abnormal 86349-0) [facility] 2021-12-28 15:03:59 Test Item Value Reference Range Interpretation Comments Hemoglobin A1C Fingerstick: (test code 10.4 = Hemoglobin A1C Fingerstick:) [facility]Mass/volume] in Capillary [id number] 15:03:05 Test Item Value Reference Range Interpretation Comments Blood Glucose: mg/dl (test code = Blood 397 Glucose: mg/dl) [facility]
--- NOTE | 2023-03-09 20:12 | RAD REPORT ---
EXAM DESCRIPTION: RAD - Chest Single View - 03/09/2023 7:50 pm CLINICAL HISTORY: vomiting Chest pain. COMPARISON: CHEST PA AND LAT 2 VIEW dated 10/17/2014; CHEST PA AND LAT 2 VIEW dated 07/01/2008 FINDINGS: Portable technique limits examination quality. The lungs are grossly clear. The heart is normal in size. No displaced fractures. IMPRESSION: No acute intrathoracic process suspected.
[2023-03-09] MEDS ORDERED: ONDANSETRON 4 MG/2 ML VIAL ONE (20:23)
[2023-03-09] MEDS ORDERED: NA CHLORIDE 0.9% 1,000 ML ONE ×2 (20:23→22:06)
[2023-03-09] MEDS ORDERED: FAMOTIDINE 20 MG/2 ML VIAL IV ONE (20:23)
[2023-03-09 20:35] LABS: Absolute Lymphocytes (CBC) 1.2 K/uL (0.7-4.9); Hematocrit 48.5 % (39.6-49.0); Lymphocytes % 11.1 % (15.3-44.8); MCV 81.5 fL (80-100); MPV 8.3 fL (7.6-11.3); RBC Red Blood Cell Count 5.95 M/uL (4.33-5.43)
[2023-03-09 20:43] LABS: Protime INR 1.04
[2023-03-09 20:44] LABS: Barbiturates NEGATIVE (NEGATIVE); Benzodiazepines NEGATIVE (NEGATIVE); Cocaine NEGATIVE (NEGATIVE); METHAMPHETAM NEGATIVE (NEGATIVE); Methadone NEGATIVE (NEGATIVE); Opiates NEGATIVE (NEGATIVE); Phencyclidine NEGATIVE (NEGATIVE); THC Cannibis NEGATIVE (NEGATIVE)
[2023-03-09 20:58] LABS: Specific Gravity > 1.030 (1.005-1.030); Urine Bacteria <20 /HPF (<20); Urine Bilirubin NEGATIVE (Negative); Urine Blood Negative (Negative); Urine Clarity Clear (Clear); Urine Color Light-Yellow (Yellow); Urine Crystals Unidentified Few /HPF (None Seen); Urine Glucose 4+ (Over) (Negative); Urine Mucus Slight /HPF (None Seen); Urine Protein 1+ (Negative); Urine RBC <5 /HPF (None Seen); Urine Urobilinogen Normal (Normal)
[2023-03-09 21:01] LABS: Bilirubin Direct 0.2 mg/dL (0-0.2); Bilirubin Total 0.8 mg/dL (0.2-1.0); Magnesium 1.9 mg/dL (1.6-2.4); Protein, Total 8.3 g/dL (6.4-8.2); Troponin High Sensitivity 3.3 pg/mL (<58.9)
--- NOTE | 2023-03-09 21:38 | RAD REPORT ---
EXAM DESCRIPTION: CTAbdomen Pelvis W Contrast - 03/09/2023 9:29 pm CLINICAL HISTORY: Abdominal pain. nausea/vomiting COMPARISON: CT ABD PELVIS W CONTRAST dated 10/15/2014 TECHNIQUE: Biphasic CT imaging of the abdomen and pelvis was performed with 100 ml non-ionic IV cont rast. All CT scans are performed using dose optimization technique as appropriate and may include automated exposure control or mA/KV adjustment according to patient size. FINDINGS: The lung bases are clear.Cholecystectomy. The liver, spleen, pancreas, adrenal glands and kidneys are within normal limits. No bowel obstruction, free air, free fluid or abscess. The appendix is normal. No evidence of signi ficant lymphadenopathy. No suspicious bony findings. IMPRESSION: No acute intra-abdominal or pelvic finding.
[2023-03-09] MEDS ORDERED: METOCLOPRAMIDE 10 MG/2mL INJ ONE (22:06)
[2023-03-09] MEDS ORDERED: LORazepam 2 MG/ML VIAL ONE (23:21)
--- NOTE | 2023-03-10 00:38 | ER ---
Nurse's Notes [facility] Name: Fahad Aguilera Age: 52 yrs Sex: Male : 1970 Arrival Date: 03/09/2023 Time: 18:32 Bed 13 Private MD: Diagnosis: Nausea with vomiting, unspecified Presentation: 03/09 18:49 Chief complaint: Patient states: vomiting that began this morning, denies diarrhea. Pt aa5 currently vomiting bile during triage. 18:49 Coronavirus screen: vomiting. Ebola Screen: Patient denies travel to an Ebola-affected [place] [facility] area in the 21 days before illness onset. Initial Sepsis Screen: Does the patient meet any 2 criteria? No. Patient's initial sepsis screen is negative. Does the patient have a suspected source of infection? No. Patient's initial sepsis screen is negative. Risk Assessment: Do you want to hurt yourself or someone else? Patient reports no desire to harm self or others. Onset of symptoms was March 09, 2023. 18:49 Acuity: SHEA 3 aa5 18:49 Method Of Arrival: Wheelchair aa5 Historical: - Allergies: 18:49 No Known Allergies; aa5 - PMHx: 18:49 Diabetes mellitus; Hypertensive disorder; aa5 - Immunization history:: Adult Immunizations unknown. - Social history:: Smoking status: unknown. Screenin:57 Abuse screen: Denies threats or abuse. Denies injuries from another. Nutritional ha1 screening: No deficits noted. Tuberculosis screening: No symptoms or risk factors identified. 03/10 00:55 [facility] ED Fall Risk Assessment (Adult) History of falling in the last 3 months, ll3 including since admission No falls in past 3 months (0 pts) Confusion or Disorientation No (0 pts) Intoxicated or Sedated No (0 pts) Impaired Gait No (0 pts) Mobility Assist Device Used No (0 pt) Altered Elimination No (0 pt) Score/Fall Risk Level 0 - 2 = Low Risk Oriented to surroundings, Maintained a safe environment, Educated pt \T\ family on fall prevention, incl call for assistance when getting out of bed. Assessment: 03/09 19:25 General: Appears uncomfortable, Behavior is cooperative. Pain: Denies pain. Neuro: ha1 Level of Consciousness is awake, alert, obeys commands, Oriented to person, place, time, situation. Cardiovascular: Heart tones S1 S2 present Capillary refill < 3 seconds Patient's skin is warm and dry. Respiratory: Airway is patent Respiratory effort is even, unlabored, Respiratory pattern is regular, symmetrical. GI: Abdomen is non-distended, obese, Bowel sounds present X 4 quads. Abd is soft and non tender X 4 quads. Reports nausea, vomiting. : No signs and/or symptoms were reported regarding the genitourinary system. Derm: Skin is pale. Musculoskeletal: Circulation, motion, and sensation intact. Range of motion: intact in all extremities. 20:25 Reassessment: Patient and/or family updated on plan of care and expected duration. Pain ha1 level reassessed. Patient is alert, oriented x 3, equal unlabored respirations, skin warm/dry/pink. Vital Signs: 18:49 BP 156 / 82; Pulse 84; Resp 24 S; Temp 97.7(TE); Pulse Ox 100% on R/A; Weight 117.93 kg aa5 (R); Height 5 ft. 10 in. (R); 19:50 BP 149 / 74; Pulse 89; Resp 16 S; Pulse Ox 100% on R/A; ha1 20:15 BP 150 / 88; Pulse 93; Resp 15 S; Pulse Ox 99% on R/A; ha1 22:00 BP 158 / 76; Pulse 100; Resp 20 S; Pulse Ox 96% on R/A; ha1 23:00 BP 153 / 84; Pulse 100; Resp 20 S; Pulse Ox 94% on R/A; ha1 0505 00:56 BP 146 / 77; Pulse 100; Resp 16; Pulse Ox 96% on R/A; ll3 05 18:49 Body Mass Index 37.31 (117.93 kg, 177.8 cm) aa5 ED Course: 03/09 18:39 Patient arrived in ED. am2 18:49 Arm band placed on. aa5 18:51 Chilango Davies, ÁNGEL is Primary Nurse. bp 18:53 Eugene Hernandez PA is PHCP. cp 18:53 Eugene Wayne MD is Attending Physician. cp 18:54 Triage completed. aa5 19:15 Patient has correct armband on for positive identification. Placed in gown. Bed in low ha1 position. Call light in reach. Side rails up X 1. 19:52 XRAY Chest (1 view) In Process Unspecified. EDMS 20:10 Inserted saline lock: 22 gauge in right antecubital area, using aseptic technique. ha1 Blood collected. 20:12 Radiology exam delayed due to lab results not completed at this time. (BUN/Creatinine) [id number] IV insertion attempt and/or patient not having appropriate IV at this time. 20:19 Primary Nurse role handed off by Chilango Davies, ÁNGEL 20:24 Basic Metabolic Panel Sent. ha1 20:24 CBC with Diff Sent. ha1 20:24 LFT's Sent. ha1 20:24 Magnesium Sent. ha1 20:24 PT-INR Sent. ha1 20:24 Troponin HS Sent. ha1 20:24 Urinalysis w/ reflexes Sent. ha1 20:24 UDS Sent. ha1 20:24 Lipase Sent. ha1 20:40 Sherri Ceballos RN is Primary Nurse. ha1 20:41 Urinalysis w/ reflexes Sent. ha1 20:41 UDS Sent. ha1 20:41 Lipase Sent. ha1 20:41 Basic Metabolic Panel Sent. ha1 20:41 LFT's Sent. ha1 20:41 Magnesium Sent. ha1 20:41 PT-INR Sent. ha1 20:41 Troponin HS Sent. ha1 21:30 CT Abd/Pelvis - IV Contrast Only In Process Unspecified. EDMS 03/10 00:55 No provider procedures requiring assistance completed. IV discontinued, intact, ll3 bleeding controlled, No redness/swelling at site. Pressure dressing applied. Administered Medications: 03/09 20:06 Drug: NS 0.9% IV 1000 ml Route: IV; Rate: 1000 ml/hr; Site: right antecubital; 1 03/10 01:05 Follow up: Response: No adverse reaction; IV Status: Completed infusion; IV Intake: ha1 1000ml 03/09 20:07 Drug: Ondansetron IVP 4 mg Route: IVP; Site: right antecubital; 1 03/10 01:05 Follow up: Response: No adverse reaction 1 03/09 20:10 Drug: Famotidine IVP 20 mg Route: IVP; Site: right antecubital; ha1 20:30 Follow up: Response: No adverse reaction 1 22:11 Drug: NS 0.9% IV 1000 ml Route: IV; Rate: 100 ml/hr; Site: right antecubital; ha1 03/10 01:06 Follow up: Response: No adverse reaction; IV Status: Completed infusion; IV Intake: ha1 500ml 03/09 22:12 Drug: metoCLOPramide IVP 10 mg Route: IVP; Site: right antecubital; ha1 22:40 Follow up: Response: No adverse reaction ha1 23:16 Drug: Ativan IVP 1 mg Route: IVP; Site: right antecubital; ha1 03/10 01:07 Follow up: Response: No adverse reaction; RASS: Alert and Calm (0) ha1 Medication: 00:55 VIS not applicable for this client. ll3 Intake: 01:05 IV: 1000ml; Total: 1000ml. ha1 01:06 IV: 500ml; Total: 1500ml. ha1 Outcome: 00:38 Discharge ordered by MD. cp 00:55 Discharged to home ambulatory, with significant other. ll3 00:55 Condition: stable 00:55 Discharge instructions given to patient, Instructed on discharge instructions, follow up and referral plans. medication usage, Demonstrated understanding of instructions, follow-up care, medications, Prescriptions given X 2. 01:08 Patient left the ED. ha1 Signatures: Dispatcher [employer] EDMS Carmen Wolf, RN RN aa5 Eugene Hernandez PA PA Devika Botello amChilango Goldberg RN RN bp Marsh, Wendy wm Loubet, Lynsea, RN RN ll3 Sherri Ceballos RN RN 1 Keara Salinas [id number]
--- NOTE | 2023-03-10 00:38 | EDPHYS ---
Physician Documentation [facility] Name: Fahad Aguilera Age: 52 yrs Sex: Male : 1970 Arrival Date: 03/09/2023 Time: 18:32 Bed 13 Private MD: ED Physician Eugene Wayne HPI: 03/09 20:00 This 52 yrs old Male presents to ER via Wheelchair with complaints of cp Nausea/Vomiting. 20:00 The patient presents to the emergency department with nausea, with "dry heaves", cp vomiting, that is continuous. Onset: The symptoms/episode began/occurred this morning. Possible causes: unknown. Associated signs and symptoms: Pertinent positives: actively vomiting, Pertinent negatives: abdominal pain, constipation, diarrhea, fever, GI bleeding, chest pain. Severity of symptoms: in the emergency department the symptoms are unchanged despite home interventions. Historical: - Allergies: 18:49 No Known Allergies; aa5 - PMHx: 18:49 Diabetes mellitus; Hypertensive disorder; aa5 - Immunization history:: Adult Immunizations unknown. - Social history:: Smoking status: unknown. ROS: 20:05 Constitutional: Positive for poor PO intake, Negative for body aches, chills, fever. cp 20:05 Eyes: Negative for injury, pain, redness, and discharge. cp 20:05 ENT: Negative for drainage from ear(s), ear pain, sore throat, difficulty swallowing, difficulty handling secretions. 20:05 Cardiovascular: Negative for chest pain, edema, palpitations. 20:05 Respiratory: Negative for cough, shortness of breath, wheezing. 20:05 Abdomen/GI: Positive for nausea and vomiting, anorexia, Negative for abdominal pain, diarrhea, constipation, hematemesis. 20:05 Back: Negative for pain at rest, pain with movement. 20:05 Neuro: Negative for altered mental status, dizziness, headache, weakness. 20:05 All other systems are negative. Exam: 20:10 Constitutional: The patient appears in no acute distress, alert, awake, non-toxic, well cp developed, well nourished, diaphoretic, uncomfortable. 20:10 Head/Face: Normocephalic, atraumatic. cp 20:10 Eyes: Periorbital structures: appear normal, Conjunctiva: normal, no exudate, no injection, Sclera: no appreciated abnormality, Lids and lashes: appear normal, bilaterally. 20:10 ENT: External ear(s): are unremarkable, Nose: is normal, Mouth: Lips: moist, Oral mucosa: pink and intact, moist, Posterior pharynx: is normal, airway is patent, no erythema, no exudate. 20:10 Neck: ROM/movement: is normal, is supple, without pain, no range of motions cp limitations, no meningismus, no nuchal rigidity. 20:10 Chest/axilla: Inspection: normal, Palpation: is normal, no crepitus, no tenderness. 20:10 Cardiovascular: Rate: normal, Rhythm: regular, Edema: is not appreciated, JVD: is not cp appreciated. 20:10 Respiratory: the patient does not display signs of respiratory distress, Respirations: normal, no use of accessory muscles, no retractions, labored breathing, is not present, Breath sounds: are clear throughout, no decreased breath sounds, no stridor, no wheezing. 20:10 Abdomen/GI: Inspection: abdomen appears normal, Bowel sounds: active, all quadrants, Palpation: abdomen is soft and non-tender, in all quadrants. 20:10 Back: pain, is absent, ROM is normal. 20:10 Neuro: Orientation: to person, place \\T\\ time. Mentation: able to follow commands, slow to respond, Motor: moves all fours, strength is normal, Sensation: no obvious gross deficits. 21:50 ECG was reviewed by the Attending Physician. cp Vital Signs: 18:49 BP 156 / 82; Pulse 84; Resp 24 S; Temp 97.7(TE); Pulse Ox 100% on R/A; Weight 117.93 kg aa5 (R); Height 5 ft. 10 in. (R); 19:50 BP 149 / 74; Pulse 89; Resp 16 S; Pulse Ox 100% on R/A; ha1 20:15 BP 150 / 88; Pulse 93; Resp 15 S; Pulse Ox 99% on R/A; ha1 22:00 BP 158 / 76; Pulse 100; Resp 20 S; Pulse Ox 96% on R/A; ha1 23:00 BP 153 / 84; Pulse 100; Resp 20 S; Pulse Ox 94% on R/A; ha1 0505 00:56 BP 146 / 77; Pulse 100; Resp 16; Pulse Ox 96% on R/A; ll3 03/09 18:49 Body Mass Index 37.31 (117.93 kg, 177.8 cm) aa5 MDM: 03/09 18:53 Patient medically screened. 03/10 00:37 Data reviewed: vital signs, nurses notes, lab test result(s), EKG, radiologic studies, cp CT scan, plain films. 00:37 Consideration of Admission/Observation Escalation of care including cp admission/observation considered. I considered the following discharge prescriptions or medication management in the emergency department Medications were administered in the Emergency Department. See MAR. Care significantly affected by the following chronic conditions: Diabetes, Hypertension. Counseling: I had a detailed discussion with the patient and/or guardian regarding: the historical points, exam findings, and any diagnostic results supporting the discharge/admit diagnosis, lab results, radiology results, to return to the emergency department if symptoms worsen or persist or if there are any questions or concerns that arise at home. Response to treatment: the patient's symptoms have markedly improved after treatment, VSS, Vomiting resolved. Patient tolerating po fluids. Will discharge to home for continued monitoring. 03/09 19: Order name: Basic Metabolic Panel; Complete Time: 21:10 cp 03/09 21:10 Interpretation: Normal except: NA 133; GLUC 234; BUN 27; GFR 79. cp 03/09 19:09 Order name: CBC with Diff; Complete Time: 21:10 cp 03/09 21:10 Interpretation: Normal except: WBC 11.00; RBC 5.95; MATT% 85.4; LYM% 11.1; MN% 3.1; NEUT cp A 9.4. 03/09 19: Order name: LFT's; Complete Time: 21:10 cp 03/09 21:11 Interpretation: Normal except: AST 38; TP 8.3; GLOB 4.3; A/G 0.9. cp 03/09 19:09 Order name: Magnesium; Complete Time: 21:10 cp 03/09 19:09 Order name: PT-INR; Complete Time: 21:10 cp 03/09 19:09 Order name: Troponin HS; Complete Time: 21:10 cp 03/09 21:11 Interpretation: Reviewed. 03/09 19: Order name: Lipase; Complete Time: 21:10 cp 03/09 19: Order name: UDS; Complete Time: 21:10 cp 03/09 19:09 Order name: Urinalysis w/ reflexes; Complete Time: 21:10 cp 03/09 21:11 Interpretation: Normal except: Urine SG > 1.030; UGLUC 4+ (Over); UKET 3+; UPROT 1+. 03/09 19:09 Order name: XRAY Chest (1 view); Complete Time: 21:10 cp 03/09 21:11 Interpretation: Report review. 03/09 19:52 Order name: CT Abd/Pelvis - IV Contrast Only; Complete Time: 21:43 cp 03/09 21:43 Interpretation: Report reviewed. 03/09 19:09 Order name: EKG; Complete Time: 19:10 cp 03/09 19:09 Order name: Cardiac monitoring; Complete Time: 20:23 cp 03/09 19:09 Order name: EKG - Nurse/Tech; Complete Time: 21:50 cp 03/09 19:09 Order name: IV Saline Lock; Complete Time: 20:23 cp 03/09 19:09 Order name: Labs collected and sent; Complete Time: 20:23 cp 03/09 19:09 Order name: O2 Per Protocol; Complete Time: 20:24 cp 03/09 19:09 Order name: O2 Sat Monitoring; Complete Time: 20:24 cp 03/09 22:11 Order name: PO challenge; Complete Time: 22:13 cp EC/04 21:50 Rate is 100 beats/min. Rhythm is regular. CT interval is normal. QRS interval is cp normal. QT interval is normal. T waves are Inverted in lead aVR. Interpreted by me. Reviewed by me. Administered Medications: 20:06 Drug: NS 0.9% IV 1000 ml Route: IV; Rate: 1000 ml/hr; Site: right antecubital; 1 03/10 01:05 Follow up: Response: No adverse reaction; IV Status: Completed infusion; IV Intake: ha1 1000ml 03/09 20:07 Drug: Ondansetron IVP 4 mg Route: IVP; Site: right antecubital; ha1 03/10 01:05 Follow up: Response: No adverse reaction [facility] 03/09 20:10 Drug: Famotidine IVP 20 mg Route: IVP; Site: right antecubital; 1 20:30 Follow up: Response: No adverse reaction ha1 22:11 Drug: NS 0.9% IV 1000 ml Route: IV; Rate: 100 ml/hr; Site: right antecubital; ha1 03/10 01:06 Follow up: Response: No adverse reaction; IV Status: Completed infusion; IV Intake: ha1 500ml 03/09 22:12 Drug: metoCLOPramide IVP 10 mg Route: IVP; Site: right antecubital; ha1 22:40 Follow up: Response: No adverse reaction ha1 23:16 Drug: Ativan IVP 1 mg Route: IVP; Site: right antecubital; ha1 03/10 01:07 Follow up: Response: No adverse reaction; RASS: Alert and Calm (0) ha1 Disposition Summary: 03/10/23 00:38 Discharge Ordered Location: Home cp Problem: new cp Symptoms: have improved cp Condition: Stable cp Diagnosis - Nausea with vomiting, unspecified cp Followup: cp - With: Private Physician - When: 1 - 2 days - Reason: Recheck today's complaints Discharge Instructions: - Discharge Summary Sheet cp - Nausea and Vomiting, Adult cp Forms: - Medication Reconciliation Form cp - Thank You Letter cp - Antibiotic Education cp - Prescription Opioid Use cp Prescriptions: - Pepcid 20 mg Oral Tablet - take 1 tablet by ORAL route every 12 hours for 10 days; 20 tablet; Refills: 0, cp Product Selection Permitted - promethazine 25 mg Oral Tablet - take 1 tablet by ORAL route every 6 hours As needed; 20 tablet; Refills: 0, cp Product Selection Permitted Signatures: Dispatcher [employer] EDNE Carmen Wolf RN RN aa5 Eugene Hernandez PA PA cp Ayala, Heidy, RN RN ha1 Corrections: (The following items were deleted from the chart) 03/11 00:03/10 20:00 This 52 yrs old Male presents to ER via Wheelchair with complaints cp of Nausea/Vomiting. cp 03/11 00:03/10 20:00 The patient presents to the emergency department with nausea, with "dry cp heaves", vomiting, that is continuous, cp 03/11 00:18 03/10 20:00 Onset: The symptoms/episode began/occurred this morning, cp cp 03/11 00:03/10 20:00 Possible causes: unknown, cp cp 03/11 00:03/10 20:00 Associated signs and symptoms: Pertinent positives: actively vomiting, cp Pertinent negatives: abdominal pain, constipation, diarrhea, fever, GI bleeding, chest pain, cp 03/11 00:03/10 20:00 Severity of symptoms: in the emergency department the symptoms are cp unchanged despite home interventions, cp
[2023-03-10 01:23] VITALS: TEMP 97.7
[2023-03-10 01:38] VITALS: BP 146/77; O2SAT 96
--- NOTE | 2023-03-10 05:49 | EKG ---
Test Date: 2023-03-09 Test Time: 21:42:50 Template Inspector: CK MEASUREMENT RESULTS: Intervals: Rate: 100 MD: 184 QRSD: 88 QT: 368 QTc: 474 [place]: P: 68 MD: 184 QRS: -6 T: 31 INTERPRETIVE STATEMENTS: Normal sinus rhythm Normal ECG Compared to ECG 10/16/2014 13:18:31 Sinus bradycardia no longer present Electronically Signed On 03-10-23 05:48:30 CDT by Tye Cross
== END 2023-03-10 01:08 | disposition home or self-care (01) ==
LOC: ER 18:32
DX: R11.2 Nausea with vomiting, unspecified (principal); I10 Essential (primary) hypertension
CPT/HCPCS: 96361; 93005; 85025; 81001; 80048; 36415; 83735; 85610; 80076; 84484; 83690; 80307; 74177; 71045; 96375; 96374; 99284; Q9967; J2765; J2405; J7030 ×2

== ENCOUNTER 2023-06-24 13:53 | Emergency (ER) | payer OTHER ==
--- OUTSIDE RECORDS SUMMARY | 2023-06-24 14:20 | XMS REPORT | Clinical Summary ---
:1970 Author Organization [facility] MD Land [facility] Address [address] [place] [address] Care Team Providers Name Role Phone Franco [...] Encounters Date Type Specialty Care Team Description 03/14/2023 Telephone Genitourinary Oncology Nnamdi Peterson Rp, MD 03/07/2023 Orders Only Oncology Annemarie Francisco Polycythemi a (Primary HOMOGENIZER OPERATOR Dx) 02/28/2023 Follow-Up Oncology Nnamdi Peterson Rp, PolycythAnnemarie Perales MD, HOMOGENIZER OPERATOR 02/28/2023 Travel 10/04/2022 Telephone Oncology Annemarie Francisco, HOMOGENIZER OPERATOR 08/30/2022 Office Visit Genitourinary Oncology Nnamdi Peterson Rp, Homero eliot ZHOU 08/30/2022 Orders Only Oncology Annemarie Francisco, Polycythemi a (Primary HOMOGENIZER OPERATOR Dx) 08/30/2022 Travel 08/09/2022 Orders Only Oncology Annemarie Francisco Polycythemmaya a (Primary HOMOGENIZER OPERATOR Dx) after 06/24/2022 Surgical History Surgery Date Site/Laterality Comments BACK SURGERY 2002, 2006 L4, L5 [facility] COLONOSCOPY 2008, 2013 Dr. Brett Rosales/Janet Gupta CHOLECYSTECTOMY 11/06/2016 - 11/05/2017 UPPER GASTROINTESTINAL 11/06/2014 - [facility] ENDOSCOPY 11/05/2015 Medical History Medical History Date Comments Hypertension 12/03/2018 Dr. Lares visit Allergic rhinitis 2007 Dr. Catalino Muller 2016 Gallbladder removed Sexual dysfunction 2014 Diabetes [...] file Not on file Not on file Obstetrics History Last Filed Vital Signs Vital [...] Body Mass Index 39.61 01/02/2019 8:13 AM ENERGY PROJECT MANAGER Plan of Treatment Date Type Specialty Care Team Description 08/29/2023 Lab Lab Annemarie Francisco, HOMOGENIZER OPERATOR [address] [facility] [address] [place] [address] (Unruly pavon) 08/29/2023 Follow-Up Genitourinary Oncology Odilia Peterson i, Rp, MD [address] [place] [address] (Unruly pavon) Health Maintenance Due Date Last Done Comments COVID-19 Vaccination (3 - Pfizer series) 07/22/2022 022, 11/03/2021 Procedures Procedure Name Priority Date/Time Associated Comments [...] 08/30/2022 10:17 Polycythemia DIFFERENTIAL AM CDT after 06/24/2022 Results .Serum Creatinine (02/28/2023 9:04 AM CDT)Only the most recent of2 resultswithin the time period is included. athologist Signature Creatinine 0.77 0.67 - 1.17 [place] mg/dL Comment: Testing performed at [facility], [address] [place] [address] Specimen Anatomical Collection Method Collection Time Receive d Time (Source) Location / / Volume Laterality Blood 02/28/2023 9:04 AM 3 9:05 CDT AM CDT Annemarie Francisco APRN LAB BLOOD ORDERABLES Performing Organization Address City/State/[place] [address] [place] [address] .CBC (02/28/2023 9:04 AM CDT)Only the most recent of2 resultswithin the time period is included. athologist Signature WBC 10.7 4.0 - 11.0 [place] K/uL Comment: All components of the CBC perfo rmed at [facility], [address] [place] [address], [place] [address] RBC 5.89 4.50 - 6.00 M/uL [place] Comment: All components of the CBC perfo rmed at [facility], [address] [place] [address], [place] [address] Hgb 15.9 14.0 - 18.0 gm/dL [place] Comment: As part of CBC or as an individ ual orderable testing performed at [facility], [address] [place] [address], [place] [address] Hct 48.8 40.0 - 54.0 % [place] Comment: As part of CBC testing performe d at [facility], [address] [place] [address], [place] [address] MCV 83 82 - 98 fL [place] Comment: As part of CBC testing performe d at [facility], [address] [place] [address], [place] [address] MCH 27.0 27.0 - 31.0 pg [place] Comment: As part of CBC testing performe d at [facility], [address] [place] [address], [place] [address] MCHC 32.6 31.0 - 36.0 gm/dL [place] Comment: As part of CBC testing performe d at [facility], [address] [place] [address], [place] [address] RDW-SD 40.2 35.1 - 46.3 fL [place] Comment: As part of CBC testing performe d at [facility], [address] [place] [address] RDW-CV 13.5 12.0 - 15.5 % [place] Comment: As part of CBC testing performe d at [facility], [address] [place] [address] Platelet count 219 140 - 440 K/uL [facility] Comment: As part of CBC or an individual orderable testing performed at [facility], [address] [place] [address] MPV 9.7 4.0 - 10.4 fL [place] Comment: As part of CBC testing performe d at [facility], [address] [place] [address] Specimen Anatomical Collection Method Collection Time Receive d Time (Source) Location / / Volume Laterality Blood 02/28/2023 9:04 AM 3 9:05 CDT AM CDT Annemarie Francisco APRN LAB BLOOD ORDERABLES Performing Organization Address City/Va Hospital/[place] [address] [place] [address] Glomerular Filtration Rate (02/28/2023 9:04 AM CDT)Only the most recent of2 resultswithin the time period is included. athologist Signature eGFR 106 >=60 [place] mL/min/1.73 sq. m Comment: The eGFRcr is [...] fulfill criteria for CKD. [facility], [address] [place] [address] Specimen Anatomical Collection Method Collection Time Receive d Time (Source) Location / / Volume Laterality Blood 02/28/2023 9:04 AM 3 9:05 CDT AM CDT Annemarie Francisco APRN LAB BLOOD ORDERABLES Performing Organization Address City/Va Hospital/[facility] [place] [address] [place] [address] Fractionated Bilirubin (02/28/2023 9:04 AM CDT)Only the most recent of2 results within the time period is included. athologist Signature Bili Total 0.4 <=1.2 mg/dL [place] Comment: Indocyanine Green (ICG) may cause falsel y elevated bilirubin results. Total and direct bilirubin must not be measured from samples containing indocyanine green. False elevation of total bilirubin can b e seen in patients with IgG concentrations above 28 g/L. Testing performed at [facility], [address] [place] [address] Bili Direct <0.2 <=0.3 mg/dL [place] Comment: Indocyanine Green (ICG) may cause falsel y elevated bilirubin results. Total and direct bilirubin must not be measured from samples containing indocyanine green. Testing performed at [facility], [address] [place] [address] Bili Indirect See Note 0.0 - 0.9 mg/dL [facility] Comment: Unable to calculate Indirect Bilirubin r esult due to some parameters are outside reportable range Testing performed at [facility], [address] [place] [address] Specimen Anatomical Collection Method Collection Time Receive d Time (Source) Location / / Volume Laterality Blood 02/28/2023 9:04 AM 9:05 CDT AM CDT Annemarie Francisco APRN LAB BLOOD ORDERABLES Performing Organization Address City/State/ZIP Code Phon e Number [place], [place] [phone] [place] [address] (ABNORMAL) Differential (02/28/2023 9:04 AM CDT)Only the most recent of2 results within the time period is included. athologist Signature Neutrophil % 50.4 42.0 - 66.0 [place] % Comment: All components of the Different ial performed at [facility], [address] [place], [place] [id number] Lymphocyte % 37.9 24.0 - 44.0 % [place] Comment: As part of the [place] [address] Monocyte % 7.5 (H) 2.0 - 7.0 % [place] Comment: As part of the Differential mukesh ting performed at [facility], [address] [place] [address], [place] [address] Eosinophil % 3.5 1.0 - 4.0 % [place] Comment: As part of the Differential mukesh ting performed at [facility], [address] [place] [address], [place] [address] Basophil % 0.3 0.0 - 1.0 % [place] Comment: As part of the Differential mukesh ting performed at [facility], [address] [place] [address], [place] [address] IGRE % 0.4 0.0 - 0.4 % [place] Comment: IGRE % count includes Metamyelocytes, My elocytes, and Promyelocytes. As part of the Differential testing perf ormed at [facility], [address] [place] [address], [place] [address] Neutrophil Abs 5.41 1.70 - 7.30 K/uL [facility] Comment: As part of the Differential mukesh ting performed at [facility], [address] [place] [address], [place] [address] Lymphocyte Abs 4.06 1.00 - 4.80 K/uL [facility] Comment: As part of the Differential mukesh ting performed at [facility], [address] [place] [address], [place] [address] Monocyte Abs 0.80 (H) 0.08 - 0.70 K/uL [facility] Comment: As part of the Differential mukesh ting performed at [facility], [address] [place] [address], [place] [address] Eosinophil Abs 0.37 0.04 - 0.40 K/uL [facility] Comment: As part of the Differential mukesh ting performed at [facility], [address] [place] [address], [place] [address] Basophil Abs 0.03 0.00 - 0.10 K/uL [facility] Comment: As part of the Differential mukesh ting performed at [facility], [address] [place] [address] IG Abs 0.04 0.00 - 0.04 K/uL [place] Comment: As part of the Differential mukesh ting performed at [facility], [address] [place] [address] Specimen Anatomical Collection Method Collection Time Receive d Time (Source) Location / / Volume Laterality Blood 02/28/2023 9:04 AM 3 9:05 CDT AM CDT Annemarie Francisco HOMOGENIZER OPERATOR LAB BLOOD ORDERABLES Performing Organization Address City/Va Hospital/ZIP Code Phon e Number [place], [place] [phone] [place] [address] BUN (02/28/2023 9:04 AM CDT)Only the most recent of2 resultswithin the time period is included. P athologist Signature BUN 20 6 - 23 mg/dL [place] Comment: Testing performed at [facility], [address] [place] [address] Specimen Anatomical Collection Method Collection Time Receive d Time (Source) Location / / Volume Laterality Blood 02/28/2023 9:04 AM 3 9:05 CDT AM CDT Annemarie Francisco HOMOGENIZER OPERATOR LAB BLOOD ORDERABLES Performing Organization Address City/[facility] Hospital/ZIP Code Phon e Number [place], [place] [phone] [place] [address] ALT (02/28/2023 9:04 AM CDT)Only the most recent of2 resultswithin the time period is included. P athologist Signature ALT 40 <=41 U/L [place] Comment: Testing performed at [facility], [address] [place] [address] Specimen Anatomical Collection Method Collection Time Receive d Time (Source) Location / / Volume Laterality Blood 02/28/2023 9:04 AM 3 9:05 CDT AM CDT Annemarie Francisco APRN LAB BLOOD ORDERABLES Performing Organization Address City/Va Hospital/ZIP Code Phon e Number [address] Aspartate Aminotransferase (02/28/2023 9:04 AM CDT)Only the most recent of2 resultswithin the time period is included. P athologist Signature AST 25 <=40 U/L [place] Comment: Testing performed at [facility], [address] [place] [address] Specimen Anatomical Collection Method Collection Time Receive d Time (Source) Location / / Volume Laterality Blood 02/28/2023 9:04 AM 3 9:05 CDT AM CDT Annemarie Francisco APRN LAB BLOOD ORDERABLES Performing Organization Address City/Va Hospital/[facility] Phon e Number [address] Total Protein (02/28/2023 9:04 AM CDT)Only the most recent of2 resultswithin the time period is included. athologist Signature Total Protein 7.4 6.4 - 8.3 [place] g/dL Comment: Testing performed at [facility], [address] [place] [address] Specimen Anatomical Collection Method Collection Time Receive d Time (Source) Location / / Volume Laterality Blood 02/28/2023 9:04 AM 3 9:05 CDT AM CDT Annemarie Francisco APRN LAB BLOOD ORDERABLES Performing Organization Address City/[facility] Hospital/[facility] Phon e Number [place], [place] [phone] [place] [address] Alkaline Phosphatase (02/28/2023 9:04 AM CDT)Only the most recent of2 results within the time period is included. athologist Signature Alk Phos 100 40 - 129 U/L [place] Comment: Testing performed at [facility], [address] [place] [address] Specimen Anatomical Collection Method Collection Time Receive d Time (Source) Location / / Volume Laterality Blood 02/28/2023 9:04 AM 3 9:05 CDT AM CDT Annemarie Francisco APRN LAB BLOOD ORDERABLES Performing Organization Address City/State/ZIP Code Phon e Number [place], [place] [phone] [place] [address] (ABNORMAL) Glucose Level (02/28/2023 9:04 AM CDT)Only the most recent of2 resultswithin the time period is included. athologist Signature Glucose Level 106 (H) 70 - 99 [place] mg/dL Comment: Effective 06/01/16, the glucose reference intervals have been updated based on [place] [employer] guidelines (Standards of Medical Care in Diabetes 2016. Diabetes Care 2016; 39: S13-S22). Fasting blood glucose: Normal: 70-99 mg/dL Impaired fasting glucose (increased risk for diabetes or pre-diabetes): 100- 125 mg/dL Diabetes mellitus: >/=126 mg/dL Random blood glucose: Normal: 70-199 mg/dL Note: Random glucose >100 mg/dL is assoc iated with increased risk for diabetes Testing performed at [facility], [address] [place] [address] Specimen Anatomical Collection Method Collection Time Receive d Time (Source) Location / / Volume Laterality Blood 02/28/2023 9:04 AM 3 9:05 CDT AM CDT Annemarie Francisco APRN LAB BLOOD ORDERABLES Performing Organization Address City/[facility] Hospital/ZIP Code Phon e Number [place], [place] [phone] [place] [address] (ABNORMAL) Ferritin (02/28/2023 9:04 AM CDT)Only the most recent of2 results within the time period is included. athologist Signature Ferritin Lvl 29 (L) 30 - 400 [place] ng/mL Comment: Testing performed at [facility], [address] [place] [address] Specimen Anatomical Collection Method Collection Time Receive d Time (Source) Location / / Volume Laterality Blood 02/28/2023 9:04 AM 3 9:05 CDT AM CDT Annemarie Francisco APRN LAB BLOOD ORDERABLES Performing Organization Address City/State/ZIP [facility] [place] [address] [place] [address] Vitamin B12 Level (02/28/2023 9:04 AM CDT) athologist Signature Vitamin B12 Lvl 550 211 - 946 [place] pg/mL Comment: [facility], [address] [place] [address] Specimen Anatomical Collection Method Collection Time Receive d Time (Source) Location / / Volume Laterality Blood 02/28/2023 9:04 AM 3 9:05 CDT AM CDT Annemarie Francisco HOMOGENIZER OPERATOR LAB BLOOD ORDERABLES Performing Organization Address City/State/ZIP [facility] Phon e Number [place], [place] [phone] [place] [address] Calcium Level (02/28/2023 9:04 AM CDT)Only the most recent of2 resultswithin the time period is included. athologist Signature Calcium Lvl 9.5 8.4 - 10.2 [place] mg/dL Comment: Testing performed at [facility], [address] [place] [address] Specimen Anatomical Collection Method Collection Time Receive d Time (Source) Location / / Volume Laterality Blood 02/28/2023 9:04 AM 3 9:05 CDT AM CDT Annemarie Francisco HOMOGENIZER OPERATOR LAB BLOOD ORDERABLES Performing Organization Address City/State/ZIP Code Phon e Number [place], [place] [phone] [place] [address] Albumin Level (02/28/2023 9:04 AM CDT)Only the most recent of2 resultswithin the time period is included. athologist Signature Albumin Lvl 4.2 3.5 - 5.2 [place] gm/dL Comment: Testing performed at [facility], [address] [place] [address] Specimen Anatomical Collection Method Collection Time Receive d Time (Source) Location / / Volume Laterality Blood 02/28/2023 9:04 AM 3 9:05 CDT AM CDT Annemarie Francisco HOMOGENIZER OPERATOR LAB BLOOD ORDERABLES Performing Organization Address City/[facility] Hospital/ZIP [facility] Phon e Number [place], [place] [phone] [place] [address] Electrolyte Panel (02/28/2023 9:04 AM CDT)Only the most recent of2 resultswithin the time period is included. athologist Signature Sodium Lvl 139 136 - 145 [place] mEq/L Comment: Testing performed at [facility], [address] [place] [address] Potassium Lvl 3.9 3.5 - 5.1 mEq/L [facility] Comment: Testing performed at [facility], [address] [place] [address] Chloride 102 98 - 107 mEq/L [place] Comment: Testing performed at [facility], [address] [place] [address] CO2 28 22 - 29 mEq/L [place] Comment: Testing performed at [facility], [address] [place] [address] Anion Gap 9 4 - 14 mEq/L [place] Comment: Testing performed at [facility], [address] [place] [address] Specimen Anatomical Collection Method Collection Time Receive d Time (Source) Location / / Volume Laterality Blood 02/28/2023 9:04 AM 9:05 CDT AM CDT Annemarie Francisco HOMOGENIZER OPERATOR LAB BLOOD ORDERABLES Performing Organization Address City/Va Hospital/[facility] Phon e Number [place], [place] [phone] [place] [address] after 06/24/2022 Insurance Payer Benefit Plan / Subscriber ID Effective Dates Phone Addre ss Type Group [employer] MANAGED AETNA O [id number] 2014-Present [id number] [facility] [place] [address] AguileraFahad Personal/Family Self 1970 [address] (Home) [place] [address] WillyFahad Personal/Family Self 1970 [address] (Home) [place] [address] Care Teams Parts Sales Representative Relationship Specialty Start Date End Date Franco Guzman PCP - External Primary Internal Medicine 9 MD [place] Care Provider Nnamdi Peterson Rp, MD PCP - General Hematology and 01/01/19 [address] [facility] [place] [address]
--- OUTSIDE RECORDS SUMMARY | 2023-06-24 14:21 | XMS REPORT | Continuity of Care Document ---
:1970 Author Organization [facility] t Address [address] [facility] [address] [place] [address] Care Team Providers Name Role Phone [phone] Primary Care Physician Unavailable Phleb, [facility] Therapeutic Attending Clinician Unavailable Pathology Attending Clinician Unavailable PATHOLOGY Attending Clinician Unavailable Erin Peterson MD, Rp Attending Clinician ERIN PETERSON RP Attending Clinician Unavailable TAHIR SIERRA Attending Clinician Unavailable Ramiro Pratt APN Attending Clinician RAMIRO PRATT Attending Clinician Unavailable Issac_Bahman Attending Clinician Unavailable Cassandra Santana NP Attending Clinician CASSANDRA SANTANA Attending Clinician Unavailable Erin Peterson MD, Rp Attending Clinician ERIN PETERSON RP Attending Clinician Unavailable [facility] Attending Clinician Unavailable Doctor Unassigned, Damon Attending Clinician Unavailable Prem Davenport MD Attending [...] Type Policy Number Effective Date Expiration Date Lazaro HERNANDEZ (EPO) [id number] 2014 00:00:00 Problems Condition Condition Condition Status Onset Resolution Last Treating Co mments Source Name Details Category Date Date Treatment Clinician Date Morbid Morbid Problem Active 2021-11 [facility] obesity Obesity 2-19 Family 00:00: Practic 00 e 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 00 e Secondary Secondary Problem Active Berna guanaco polycythem Polycythem 3-23 Fa nando ia ia 00:00: Practic 00 e ALT (SGPT) ALT (SGPT) Problem Active [facility] ill[facility] level Level 3-23 Family raised Raised 00:00: Practic 00 e Increased Increased Problem Active Berna blanc aspartate Aspartate 3-23 Fami ly transamina Transamina 00:00: Pr actic se level se Level 00 e Type 2 Type 2 Problem Active [facility] diabetes Diabetes 2-22 Family mellitus Mellitus 00:00: Practi c 00 e Hyperlipid Hyperlipid Problem Active [facility] ill[facility] emia emia 2-22 Family 00:00: Practic 00 e Essential Essential Problem Active Berna guanaco hypertensi Hypertensi 2-22 Fa nando on on 00:00: Practic 00 e Polycythem Polycythem Disease Active 2018-11 U nivers ia ia 2-21 ity of 00:00: [place] 00 Medical Branch Nausea and Nausea and Disease Active 2018-11 U nivers vomiting vomiting 2- ity of 00:00: [place] 00 Medical Branch Polycythem Polycythem Disease Active U nivers ia ia 2-27 ity of 00:00: [place] 00 MD [facility] Bandemia Bandemia Disease Active Unive rs 2-27 ity of 00:00: [place] 00 MD [facility] Essential Essential Disease Active Uni vers hypertensi hypertensi 5-23 it y of on on 00:00: [place] 00 Medical Branch Dyslipidem Dyslipidem Disease Active U nivers ia ia 03-28 ity of 00:00: [place] 00 Medical Branch Type 2 Type 2 Disease Active Univers diabetes diabetes 03-28 ity of mellitus mellitus 00:00: [place] with with 00 Medical complicati complicati Br anch on, on, without without long-term long-term current current use of use of insulin insulin Elevated Elevated Disease Active Unive rs liver liver 03-28 ity of enzymes enzymes 00:00: [place] [facility] Obesity, Obesity, Disease Active Unive rs unspecifie unspecifie 03-28 it y of d obesity d obesity 00:[place] severity, severity, 00 Medi jesica unspecifie unspecifie Br anch d obesity d obesity type type Metabolic Metabolic Disease Active Uni vers syndrome X syndrome X 03-28 it y of 00:00: [place] 00 Medical Branch Intractabl Intractabl Disease Active U nivers e nausea e nausea -24 ity of and and 00:00: [place] vomiting vomiting 00 Medica l Branch Obesity Obesity Disease Active Univers (BMI (BMI 4-22 ity of 30-39.9) 30-39.9) 00:00: [place] 00 Medical Branch Chest pain Chest pain Disease Active U nivers 4-22 ity of 00:00: [place] 00 Medical Branch Allergies, Adverse Reactions, Alerts Allergy Allergy Status Severity Reaction(s) Onset Inactive Treating Comm ents Source Name Type Date Date Clinician NO KNOWN Drug Active Univers ALLERGIE Class ity of S [facility] Family History Family Member Diagnosis Comments Start Date Stop Date Source Maternal uncle -Colon cancer Univers ity of [facility] [place] Social History Social Habit Start Date Stop Date Quantity Comments Source History SDOH University o f Alcohol Frequency [place] M ed[facility] History SDOH University o f Alcohol Std Drinks [place] [facility] [place] History SDOH University o f Alcohol Binge [place] [facility] History of tobacco Current smoker Un iversity of use [facility] Exposure to 2023-02-18 2023-02-28 Not sure University of SARS-CoV-2 (event) 00:00:00 08:55:00 [facility] [place] Tobacco use and 2019-10-06 2019-10-06 Smokeless Universit y of exposure 00:00:00 00:00:00 tobacco non-user [facility] Alcohol Comment 2019-01-17 2019-01-17 social Universit y of 00:00:00 00:00:00 [facility] Cigarettes smoked 2019-01-02 2019-01-02 Univers ity of current (pack per 00:00:00 00:00:00 [place] Nasir Janet ) - Reported Cancer Ce nter Cigarette 2019-01-02 2019-01-02 University of pack-years 00:00:00 00:00:00 Kimberlyn alberto [facility] Alcohol intake 2019-01-02 2019-01-02 Current University of 00:00:00 00:00:00 non-drinker of [place] MD Brooklynn goddard alcohol [facility] (finding) Tobacco Comment 2017-02-25 2017-02-25 says he is Universit y of 00:00:00 00:00:00 currently [facility] Sex Ass[birth year] At [birth year] Universit y of 00:00:00 00:00:00 Kimberlyn alberto [facility] Smoking Status Start Date Stop Date Source Ex-smoker 2019-10-06 00:00:00 2019-10-06 00:00:00 Universi ty of [facility] Medications Ordered Filled Start Stop Current Ordering Indication Dosage Frequency Signature Comments Components Source Medication Medication Date Date Medication? Clinician (SIG) Name Name glimepiride Yes Univer s (AMARYL) 4 4-25 ity of mg tablet 09:46: Kimberlyn huston [facility] metFORMIN Yes Univers (GLUCOPHAGE 4-25 ity of ) 500 mg 09:46: Kimberlyn bedoya 51 MD Jai huston [facility] aspirin 81 Yes 81mg Take 1 Unive rs mg EC 4-25 tablet (81 ity of tablet 09:46: mg) by Kimberlyn lopez MD daily. [facility] glimepiride Yes Univer s (AMARYL) 4 4-25 ity of mg tablet 09:46: Kimberlyn huston [facility] metFORMIN Yes Univers (GLUCOPHAGE 4-25 ity of ) 500 mg 09:46: Kimberlyn bedoya 51 MD Jai huston [facility] aspirin 81 Yes 81mg Take 1 Unive rs mg EC 4-25 tablet (81 ity of tablet 09:46: mg) by [facility] Yes [id number] TAKE 1 U nivers mg tablet 7-26 TABLET BY ity o f 00:00: MOUTH [place] 00 EVERY DAY Medical Branch [facility] 10 Yes [id number] TAKE 1 U nivers mg tablet 7-26 TABLET BY ity o f 00:00: MOUTH [place] EVERY DAY Medical Branch [facility] 10 Yes [id number] TAKE 1 U nivers mg tablet 7-26 TABLET BY ity o f 00:00: MOUTH [place] EVERY DAY Medical Branch [facility] 10 Yes [id number] TAKE 1 U nivers mg tablet 7-26 TABLET BY ity o f 00:00: MOUTH [place] EVERY DAY Medical Branch [facility] 10 Yes [id number] TAKE 1 U nivers mg tablet 7-26 TABLET BY ity o f 00:00: MOUTH [place] EVERY DAY Medical Branch [facility] 10 Yes [id number] TAKE 1 U nivers mg tablet 7-26 TABLET BY ity o f 00:00: MOUTH [place] 00 EVERY DAY Medical Branch [facility] 10 Yes [id number] TAKE 1 U nivers mg tablet 7-26 TABLET BY ity o f 00:00: MOUTH [place] EVERY DAY Medical Branch [facility] 10 Yes [id number] TAKE 1 U nivers mg tablet 7-26 TABLET BY ity o f 00:00: MOUTH [place] EVERY DAY Medical Branch [facility] 10 Yes [id number] TAKE 1 U nivers mg tablet 7-26 TABLET BY ity o f 00:00: MOUTH [place] 00 EVERY DAY Medical Branch [facility] 10 Yes [id number] TAKE 1 U nivers mg tablet 7-26 TABLET BY ity o f 00:00: MOUTH [place] EVERY DAY Medical Branch [facility] 10 Yes [id number] TAKE 1 U nivers mg tablet 7-26 TABLET BY ity o f 00:00: MOUTH [place] 00 EVERY DAY Medical Branch [facility] 10 Yes [id number] TAKE 1 U nivers mg tablet 7-26 TABLET BY ity o f 00:00: MOUTH [place] EVERY DAY Medical Branch glimepiride 0 Yes [id number] 4mg Take 1 Univers 4 mg tablet 5-05 tablet by ity of 00:00: mouth 2 [place] 00 (two) Medical times Branch daily. hydroCHLORO 2020-0 Yes [id number] 12.5mg Take 1 Univers thiazide 5-05 capsule by ity o f 12.5 mg 00:00: mouth [place] capsule 00 daily. Medical Branch losartan Yes [id number] 100mg Take 1 Un stacey 100 mg 5-05 tablet by ity of tablet 00:00: mouth [place] 00 daily. Medical Branch glimepiride Yes [id number] 4mg Take 1 Univers 4 mg tablet 5-05 tablet by ity of 00:00: mouth 2 [place] 00 (two) Medical times Branch daily. hydroCHLORO 2020- Yes [id number] 12.5mg Take 1 Univers thiazide 5-05 capsule by ity o f 12.5 mg 00:00: mouth [place] capsule 00 daily. Medical Branch losartan Yes [id number] 100mg Take 1 Un stacey 100 mg 5-05 tablet by ity of tablet 00:00: mouth [place] 00 daily. Medical Branch glimepiride Yes [id number] 4mg Take 1 Univers 4 mg tablet 5-05 tablet by ity of 00:00: mouth 2 [place] 00 (two) Medical times Branch daily. hydroCHLORO Yes [id number] 12.5mg Take 1 Univers thiazide 5-05 capsule by ity o f 12.5 mg 00:00: mouth [place] capsule 00 daily. Medical Branch losartan Yes [id number] 100mg Take 1 Un stacey 100 mg 5-05 tablet by ity of tablet 00:00: mouth [place] 00 daily. Medical Branch glimepiride Yes [id number] 4mg Take 1 Univers 4 mg tablet 5-05 tablet by ity of 00:00: mouth 2 [place] 00 (two) Medical times Branch daily. hydroCHLORO 2020-0 Yes [id number] 12.5mg Take 1 Univers thiazide 5-05 capsule by ity o f 12.5 mg 00:00: mouth [place] capsule 00 daily. Medical Branch losartan Yes [id number] 100mg Take 1 Un stacey 100 mg 5-05 tablet by ity of tablet 00:00: mouth [place] 00 daily. Medical Branch glimepiride Yes [id number] 4mg Take 1 Univers 4 mg tablet 5-05 tablet by ity of 00:00: mouth 2 [place] 00 (two) Medical times Branch daily. hydroCHLORO Yes [id number] 12.5mg Take 1 Univers thiazide 5-05 capsule by ity o f 12.5 mg 00:00: mouth [place] capsule 00 daily. Medical Branch losartan Yes [id number] 100mg Take 1 Un stacey 100 mg 5-05 tablet by ity of tablet 00:00: mouth [place] 00 daily. Medical Branch glimepiride Yes [id number] 4mg Take 1 Univers 4 mg tablet 5-05 tablet by ity of 00:00: mouth 2 [place] 00 (two) Medical times Branch daily. hydroCHLORO Yes [id number] 12.5mg Take 1 Univers thiazide 5-05 capsule by ity o f 12.5 mg 00:00: mouth [place] capsule 00 daily. Medical Branch losartan Yes [id number] 100mg Take 1 Un stacey 100 mg 5-05 tablet by ity of tablet 00:00: mouth [place] 00 daily. Medical Branch glimepiride Yes [id number] 4mg Take 1 Univers 4 mg tablet 5-05 tablet by ity of 00:00: mouth 2 [place] 00 (two) Medical times Branch daily. hydroCHLORO Yes [id number] 12.5mg Take 1 Univers thiazide 5-05 capsule by ity o f 12.5 mg 00:00: mouth [place] capsule 00 daily. Medical Branch losartan Yes [id number] 100mg Take 1 Un stacey 100 mg 5-05 tablet by ity of tablet 00:00: mouth [place] 00 daily. Medical Branch glimepiride Yes [id number] 4mg Take 1 Univers 4 mg tablet 5-05 tablet by ity of 00:00: mouth 2 [place] 00 (two) Medical times Branch daily. hydroCHLORO 2020- Yes [id number] 12.5mg Take 1 Univers thiazide 5-05 capsule by ity o f 12.5 mg 00:00: mouth [place] capsule 00 daily. Medical Branch losartan Yes [id number] 100mg Take 1 Un stacey 100 mg 5-05 tablet by ity of tablet 00:00: mouth [place] 00 daily. Medical Branch glimepiride Yes [id number] 4mg Take 1 Univers 4 mg tablet 5-05 tablet by ity of 00:00: mouth 2 [place] (two) Medical times Branch daily. hydroCHLORO 2020-0 Yes [id number] 12.5mg Take 1 Univers thiazide 5-05 capsule by ity o f 12.5 mg 00:00: mouth [place] capsule 00 daily. Medical Branch losartan Yes [id number] 100mg Take 1 Un stacey 100 mg 5-05 tablet by ity of tablet 00:00: mouth [place] 00 daily. Medical Branch glimepiride Yes [id number] 4mg Take 1 Univers 4 mg tablet 5-05 tablet by ity of 00:00: mouth 2 [place] (two) Medical times Branch daily. hydroCHLORO Yes [id number] 12.5mg Take 1 Univers thiazide 5-05 capsule by ity o f 12.5 mg 00:00: mouth [place] capsule 00 daily. Medical Branch losartan Yes [id number] 100mg Take 1 Un stacey 100 mg 5-05 tablet by ity of tablet 00:00: mouth [place] 00 daily. Medical Branch glimepiride Yes [id number] 4mg Take 1 Univers 4 mg tablet 5-05 tablet by ity of 00:00: mouth 2 [place] (two) Medical times Branch daily. hydroCHLORO Yes [id number] 12.5mg Take 1 Univers thiazide 5-05 capsule by ity o f 12.5 mg 00:00: mouth [place] capsule 00 daily. Medical Branch losartan 0 Yes [id number] 100mg Take 1 Un stacey 100 mg 5-05 tablet by ity of tablet 00:00: mouth [place] 00 daily. Medical Branch glimepiride Yes [id number] 4mg Take 1 Univers 4 mg tablet 5-05 tablet by ity of 00:00: mouth 2 [place] (two) Medical times Branch daily. hydroCHLORO 2020-0 Yes [id number] 12.5mg Take 1 Univers thiazide 5-05 capsule by ity o f 12.5 mg 00:00: mouth [place] capsule 00 daily. Medical Branch losartan Yes [id number] 100mg Take 1 Un stacey 100 mg 5-05 tablet by ity of tablet 00:00: mouth [place] 00 daily. Medical Branch metformin 2020-0 Yes [id number] 1000mg Take 2 Univers ER 500 mg 5-04 tablets by ity of 24 hr 00:00: mouth 2 [place] tablet 00 (two) Medical times Branch daily with meals. metformin 2020-0 Yes [id number] 1000mg Take 2 Univers ER 500 mg 5-04 tablets by ity of 24 hr 00:00: mouth 2 [place] tablet 00 (two) Medical times Branch daily with meals. metformin 2020-0 Yes [id number] 1000mg Take 2 Univers ER 500 mg 5-04 tablets by ity of 24 hr 00:00: mouth 2 [place] tablet 00 (two) Medical times Branch daily with meals. metformin 2020-0 Yes [id number] 1000mg Take 2 Univers ER 500 mg 5-04 tablets by ity of 24 hr 00:00: mouth 2 [place] tablet 00 (two) Medical times Branch daily with meals. metformin 2020-0 Yes [id number] 1000mg Take 2 Univers ER 500 mg 5-04 tablets by ity of 24 hr 00:00: mouth 2 [place] tablet 00 (two) Medical times Branch daily with meals. metformin 2020-0 Yes [id number] 1000mg Take 2 Univers ER 500 mg 5-04 tablets by ity of 24 hr 00:00: mouth 2 [place] tablet 00 (two) Medical times Branch daily with meals. metformin 2020-0 Yes [id number] 1000mg Take 2 Univers ER 500 mg 5-04 tablets by ity of 24 hr 00:00: mouth 2 [place] tablet 00 (two) Medical times Branch daily with meals. metformin 2020-0 Yes [id number] 1000mg Take 2 Univers ER 500 mg 5-04 tablets by ity of 24 hr 00:00: mouth 2 [place] tablet 00 (two) Medical times Branch daily with meals. metformin 2020-0 Yes [id number] 1000mg Take 2 Univers ER 500 mg 5-04 tablets by ity of 24 hr 00:00: mouth 2 [place] tablet 00 (two) Medical times Branch daily with meals. metformin 2020-0 Yes [id number] 1000mg Take 2 Univers ER 500 mg 5-04 tablets by ity of 24 hr 00:00: mouth 2 [place] tablet 00 (two) Medical times Branch daily with meals. metformin 2020-0 Yes [id number] 1000mg Take 2 Univers ER 500 mg 5-04 tablets by ity of 24 hr 00:00: mouth 2 [place] tablet 00 (two) Medical times Branch daily with meals. metformin 2020-0 Yes [id number] 1000mg Take 2 Univers ER 500 mg 5-04 tablets by ity of 24 hr 00:00: mouth 2 [place] tablet 00 (two) Medical times Branch daily with meals. ATORVASTATI 2020-0 Yes [id number] TAKE 1 Univers N 20 mg 5-03 TABLET BY ity of tablet 00:00: MOUTH [place] 00 EVERYDAY Medical AT BEDTIME Branch ATORVASTATI 2020-0 Yes [id number] TAKE 1 Univers N 20 mg 5-03 TABLET BY ity of tablet 00:00: MOUTH [place] 00 EVERYDAY Medical AT BEDTIME Branch ATORVASTATI 2020-0 Yes [id number] TAKE 1 Univers N 20 mg 5-03 TABLET BY ity of tablet 00:00: MOUTH [place] 00 EVERYDAY Medical AT BEDTIME Branch ATORVASTATI 2020-0 Yes [id number] TAKE 1 Univers N 20 mg 5-03 TABLET BY ity of tablet 00:00: MOUTH [place] 00 EVERYDAY Medical AT BEDTIME Branch ATORVASTATI 2020-0 Yes [id number] TAKE 1 Univers N 20 mg 5-03 TABLET BY ity of tablet 00:00: MOUTH [place] 00 EVERYDAY Medical AT BEDTIME Branch ATORVASTATI 2020-0 Yes [id number] TAKE 1 Univers N 20 mg 5-03 TABLET BY ity of tablet 00:00: MOUTH [place] 00 EVERYDAY Medical AT BEDTIME Branch ATORVASTATI 2020-0 Yes [id number] TAKE 1 Univers N 20 mg 5-03 TABLET BY ity of tablet 00:00: MOUTH [place] 00 EVERYDAY Medical AT BEDTIME Branch ATORVASTATI 2020-0 Yes [id number] TAKE 1 Univers N 20 mg 5-03 TABLET BY ity of tablet 00:00: MOUTH [place] 00 EVERYDAY Medical AT BEDTIME Branch ATORVASTATI 2020-0 Yes [id number] TAKE 1 Univers N 20 mg 5-03 TABLET BY ity of tablet 00:00: MOUTH [place] 00 EVERYDAY Medical AT BEDTIME Branch ATORVASTATI 2020-0 Yes [id number] TAKE 1 Univers N 20 mg 5-03 TABLET BY ity of tablet 00:00: MOUTH [place] 00 EVERYDAY Medical AT BEDTIME Branch ATORVASTATI 2020-0 Yes [id number] TAKE 1 Univers N 20 mg 5-03 TABLET BY ity of tablet 00:00: MOUTH [place] 00 EVERYDAY Medical AT BEDTIME Branch ATORVASTATI 2020-0 Yes [id number] TAKE 1 Univers N 20 mg 5-03 TABLET BY ity of tablet 00:00: MOUTH [place] 00 EVERYDAY Medical AT BEDTIME Branch aspirin 81 2019-0 Yes [id number] 81mg Take 1 Univers mg chewable 3-18 tablet by ity of tablet 00:00: mouth [place] 00 daily. Medical Branch aspirin 81 2019-0 Yes [id number] 81mg Take 1 Univers mg chewable 3-18 tablet by ity of tablet 00:00: mouth [place] 00 daily. Medical Branch aspirin 81 2019-0 Yes [id number] 81mg Take 1 Univers mg chewable 3-18 tablet by ity of tablet 00:00: mouth [place] 00 daily. Medical Branch aspirin 81 2019-0 Yes [id number] 81mg Take 1 Univers mg chewable 3-18 tablet by ity of tablet 00:00: mouth [place] 00 daily. Medical Branch aspirin 81 2019-0 Yes [id number] 81mg Take 1 Univers mg chewable 3-18 tablet by ity of tablet 00:00: mouth [place] 00 daily. Medical Branch aspirin 81 2019-0 Yes [id number] 81mg Take 1 Univers mg chewable 3-18 tablet by ity of tablet 00:00: mouth [place] 00 daily. Medical Branch aspirin 81 2019-0 Yes [id number] 81mg Take 1 Univers mg chewable 3-18 tablet by ity of tablet 00:00: mouth [place] 00 daily. Medical Branch aspirin 81 2019-0 Yes [id number] 81mg Take 1 Univers mg chewable 3-18 tablet by ity of tablet 00:00: mouth [place] 00 daily. Medical Branch aspirin 81 2019-0 Yes [id number] 81mg Take 1 Univers mg chewable 3-18 tablet by ity of tablet 00:00: mouth [place] 00 daily. Medical Branch aspirin 81 2019-0 Yes [id number] 81mg Take 1 Univers mg chewable 3-18 tablet by ity of tablet 00:00: mouth [place] 00 daily. Medical Branch aspirin 81 2019-0 Yes [id number] 81mg Take 1 Univers mg chewable 3-18 tablet by ity of tablet 00:00: mouth [place] 00 daily. Medical Branch aspirin 81 2019-0 Yes [id number] 81mg Take 1 Univers mg chewable 3-18 tablet by ity of tablet 00:00: mouth [place] 00 daily. Medical Branch [facility], avonazin 2021- No 25mg Take 25 mg Univers e 3-12 10-25 by mouth. ity of (PHENERGAN) 00:00: 00:00 [place] 25 mg 00 :00 tablet [facility] 2021- No 25mg Take 25 mg Univers e 3-12 10-25 by mouth. ity of (PHENERGAN) 00:00: 00:00 [place] 25 mg 00 :00 tablet [facility] losartan Yes Univers (COZAAR) 2-05 ity of 100 mg 00:00: [place] tablet 00 [facility] losartan Yes Univers (COZAAR) 2-05 ity of 100 mg 00:00: [place] tablet 00 [facility] 10 Yes TAKE 1 Unive rs mg tab 1-28 TABLET BY ity of 00:00: MOUTH [place] 00 EVERY DAY [facility] hydroCHLORO Yes Univer s thiazide 1-28 ity of (MICROZIDE) 00:00: [place] 12.5 mg 00 capsule [facility] Yes TAKE 1 Unive rs mg tab 1-28 TABLET BY ity of 00:00: MOUTH [place] 00 EVERY DAY [facility] hydroCHLORO Yes Univer s thiazide 1-28 ity of (MICROZIDE) 00:00: [place] 12.5 mg 00 capsule [facility] atorvasti 2021- No 20mg 20 mg. Uni vers n (LIPITOR) 1-28 10-25 ity of 20 mg 00:00: 00:00 [place] tablet 00 :00 [facility] atorvastati 2021- No 20mg 20 mg. Uni vers n (LIPITOR) 1-28 10-25 ity of 20 mg 00:00: 00:00 [place] tablet 00 :00 [facility] glimepiride glimepiride No 1 BID glimepirid [place] 4 mg tablet 4 mg tablet e 4 mg Family Take 1 Take 1 tablet [facility] tablet tablet Take 1 e twice a day twice a day tablet by oral by oral twice a route with route with day by meals for meals for oral route 90 days. 90 days. with meals for 90 days. hydrochloro hydrochloro No 1capsul Q1D hydrochlor [place] thiazide thiazide e(s) othiazide Fa nando 12.5 [...] days. metformin metformin No 2 BID metformin [facility] 500 mg 500 mg 500 mg Family [...] DAY OneTouch OneTouch No 2strip( Q1D OneTouch [facility] Verio test Verio test s) Verio [...] route. route. route. diclofenac diclofenac No diclofenac [facility] sodium 75 sodium 75 sodium 75 [...] for 90 days. FreeStyle FreeStyle No FreeStyle [place] Ashu 2 Ashu 2 Ashu 2 Family Sensor kit Sensor kit Sensor kit [facility] USE USE USE e DIRECTED DIRECTED DIRECTED DAILY BUT DAILY BUT DAILY BUT CHANGE CHANGE CHANGE EVERY 14 EVERY 14 EVERY 14 DAYS DAYS DAYS glimepiride glimepiride No 1 BID glimepirid [place] 4 mg tablet 4 mg tablet e 4 mg Family Take 1 Take 1 tablet [facility] tablet tablet Take 1 e twice a day twice a day tablet by oral by oral twice a route with route with day by meals for meals for oral route 90 days. 90 days. with meals for 90 days. hydrochloro hydrochloro No 1capsul Q1D hydrochlor [facility] thiazide thiazide e(s) othiazide Fa nando [...] days. glimepiride glimepiride No 1 BID glimepirid [facility] 4 mg tablet 4 mg tablet e 4 mg Family Take 1 Take 1 tablet [facility] tablet tablet Take 1 e twice a day twice a day tablet by oral by oral twice a route with route with day by meals for meals for oral route 90 days. 90 days. with meals for 90 days. hydrochloro hydrochloro No 1capsul Q1D hydrochlor [facility] thiazide thiazide e(s) othiazide Fa nando 12.5 mg 12.5 mg 12.5 mg Practi c capsule capsule capsule e Take 1 Take 1 Take 1 capsule capsule capsule every day every day every day by oral by oral by oral route for route for route for 90 days. 90 days. 90 days. hydrochloro hydrochloro No 1 Q1D [facility] thiazide thiazide othiazide Fa nando 12.5 mg 12.5 mg [...] 90 days. OneTouch OneTouch No 2strip( Q1D OneTouch [facility] Verio test Verio test s) Verio [...] route. route. route. diclofenac diclofenac No diclofenac [facility] sodium 75 sodium 75 sodium 75 Family mg mg mg [facility] tablet,lili tablet,lili tablet,del e yed release yed release ayed TAKE 1 TAKE 1 release TABLET BY TABLET BY TAKE 1 MOUTH TWICE MOUTH TWICE TABLET BY A DAY A DAY MOUTH TWICE A DAY Equate Equate No Equate [facility] Aspirin Aspirin Aspirin Family Practic e [...] for 30 days. FreeStyle FreeStyle No FreeStyle [facility] Ashu 2 Ashu 2 Ashu 2 Family Sensor kit Sensor kit Sensor kit Practic USE USE USE e DIRECTED DIRECTED DIRECTED DAILY BUT DAILY BUT DAILY BUT CHANGE CHANGE CHANGE EVERY 14 EVERY 14 EVERY 14 DAYS DAYS DAYS Immunizations Ordered Filled Immunization Date Status Comments [facility] e Immunization Name Name COVID-19, mRNA, COVID-19, mRNA, 2022-05-27 Completed [facility] LNP-S, PF, 30 LNP-S, PF, 30 00:00:00 Practice mcg/0.3 mL dose, mcg/0.3 mL dose, alanna-sucrose alanna-sucrose ([place]) - ([place]) - ML ML COVID-19, mRNA, COVID-19, mRNA, 2021-11-03 Completed [facility] Family LNP-S, PF, 30 LNP-S, PF, 30 00:00:00 Practice mcg/0.3 mL dose mcg/0.3 mL dose ([employer]) - ([employer]) - ML ML Non-US Vaccine Non-US Vaccine [...] Vaccine 2020-07-20 Completed University of Recombinant 00:00:00 [facility] TDAP 2020-07-20 Completed University of 00:00:00 [facility] Zoster Vaccine 2020-07-20 Completed University of Recombinant 00:00:00 [facility] TDAP 2020-07-20 Completed University of 00:00:00 [facility] Zoster Vaccine 2020-07-20 Completed University of Recombinant 00:00:00 [facility] TDAP 2020-07-20 Completed University of 00:00:00 [facility] Zoster Vaccine 2020-07-20 Completed University of Recombinant 00:00:00 [facility] TDAP 2020-07-20 Completed University of 00:00:00 [facility] Zoster Vaccine 2020-07-20 Completed University of Recombinant 00:00:00 [facility] TDAP 2020-07-20 Completed University of 00:00:00 [facility] Zoster Vaccine 2020-07-20 Completed University of Recombinant 00:00:00 [facility] TDAP 2020-07-20 Completed University of 00:00:00 [facility] Zoster Vaccine 2020-07-20 Completed University of Recombinant 00:00:00 [facility] TDAP 2020-07-20 Completed University of 00:00:00 [facility] Zoster Vaccine 2020-07-20 Completed University of Recombinant 00:00:00 [facility] TDAP 2020-07-20 Completed University of 00:00:00 [facility] Zoster Vaccine 2020-07-20 Completed University of Recombinant 00:00:00 [facility] TDAP 2020-07-20 Completed University of 00:00:00 [facility] Zoster Vaccine 2020-07-20 Completed University of Recombinant 00:00:00 [facility] TDAP 2020-07-20 Completed University of 00:00:00 [facility] Zoster Vaccine 2020-07-20 Completed University of Recombinant 00:00:00 [facility] TDAP 2020-07-20 Completed University of 00:00:00 [facility] Zoster Vaccine 2020-07-20 Completed University of Recombinant 00:00:00 [facility] TDAP 2020-07-20 Completed University of 00:00:00 [facility] Influenza Virus 2020-07-07 Completed Universit y of Vaccine 00:00:00 [facility] Pneumococcal 2020-07-07 Completed University o f Polysaccharide, 00:00:00 [place] [facility] ical PPSV23 (PNEUMOVAX) [place] Influenza Virus 2020-07-07 Completed Universit y of Vaccine 00:00:00 [facility] Pneumococcal 2020-07-07 Completed University o f Polysaccharide, 00:00:00 [place] [facility] ical PPSV23 (PNEUMOVAX) [place] Influenza Virus 2020-07-07 Completed Universit y of Vaccine 00:00:00 [facility] Pneumococcal 2020-07-07 Completed University o f Polysaccharide, 00:00:00 [facility] ical PPSV23 (PNEUMOVAX) [place] Influenza Virus 2020-07-07 Completed Universit y of Vaccine 00:00:00 [facility] Pneumococcal 2020-07-07 Completed University o f Polysaccharide, 00:00:00 [place] Med ical PPSV23 (PNEUMOVAX) [place] Influenza Virus 2020-07-07 Completed Universit y of Vaccine 00:00:00 [facility] Pneumococcal 2020-07-07 Completed University o f Polysaccharide, 00:00:00 [place] Med ical PPSV23 (PNEUMOVAX) [place] Influenza Virus 2020-07-07 Completed Universit y of Vaccine 00:00:00 [facility] Pneumococcal 2020-07-07 Completed University o f Polysaccharide, 00:00:00 [place] [facility] ical PPSV23 (PNEUMOVAX) [place] Influenza Virus 2020-07-07 Completed Universit y of Vaccine 00:00:00 [facility] Pneumococcal 2020-07-07 Completed University o f Polysaccharide, 00:00:00 [place] Med ical PPSV23 (PNEUMOVAX) [place] Influenza Virus 2020-07-07 Completed Universit y of Vaccine 00:00:00 [facility] Pneumococcal 2020-07-07 Completed University o f Polysaccharide, 00:00:00 [place] Med ical PPSV23 (PNEUMOVAX) [place] Influenza Virus 2020-07-07 Completed Universit y of Vaccine 00:00:00 [facility] Pneumococcal 2020-07-07 Completed University o f Polysaccharide, 00:00:00 [place] Med ical PPSV23 (PNEUMOVAX) Branch Influenza Virus 2020-07-07 Completed Universit y of Vaccine 00:00:00 [facility] Pneumococcal 2020-07-07 Completed University o f Polysaccharide, 00:00:00 [place] Med ical PPSV23 (PNEUMOVAX) Branch Influenza Virus 2020-07-07 Completed Universit y of Vaccine 00:00:00 [facility] Pneumococcal 2020-07-07 Completed University o f Polysaccharide, 00:00:00 [place] Med ical PPSV23 (PNEUMOVAX) [place] Influenza Virus 2020-07-07 Completed Universit y of Vaccine 00:00:00 [facility] Pneumococcal 2020-07-07 Completed University o f Polysaccharide, 00:00:00 [place] Med ical PPSV23 (PNEUMOVAX) [place] Vital Signs Vital Name Observation Time Observation Value Comments Source BP Diastolic 2023-02-22 00:00:00 96 mm[Hg] [facility] Height 2023-02-22 00:00:00 71 [in_i] [facility] BMI (Body Mass 2023-02-22 00:00:00 35.8 kg/m2 [facility] BP Systolic 2023-02-22 00:00:00 157 mm[Hg] [facility] Body Weight 2023-02-22 00:00:00 256.8 [lb_av] [facility] BP Diastolic 2022-10-24 00:00:00 102 mm[Hg] [facility] Height 2022-10-24 00:00:00 71 [in_i] [facility] BMI (Body Mass 2022-10-24 00:00:00 37.1 kg/m2 [facility] BP Systolic 2022-10-24 00:00:00 171 mm[Hg] [facility] Body Weight 2022-10-24 00:00:00 266 [lb_av] [facility] BP Diastolic 2021-12-28 00:00:00 89 mm[Hg] [facility] Height 2021-12-28 00:00:00 71 [in_i] [facility] BMI (Body Mass 2021-12-28 00:00:00 38.4 kg/m2 [facility] BP Systolic 2021-12-28 00:00:00 127 mm[Hg] [facility] Body Weight 2021-12-28 00:00:00 275 [lb_av] [facility] Systolic blood 2023-02-28 14:44:10 161 mm[Hg] Univer sity of pressure [place] [facility] Diastolic blood 2023-02-28 14:44:10 99 mm[Hg] Unive rsity of pressure [place] [facility] Heart rate 2023-02-28 14:44:10 85 /min [facility] Respiratory rate 2023-02-28 14:43:34 16 /min [facility] Body weight 2023-02-28 14:43:34 116.5 kg Universi ty [facility] BMI 2023-02-28 14:43:34 39.61 kg/m2 [facility] Oxygen saturation in 2023-02-28 14:43:34 98 /min [facility] Arterial blood by Kimberlyn goddard Pulse oximetry [facility] Body temperature 2022-08-30 15:36:00 37 Lillie [facility] Procedures Procedure Date / Time Performing Clinician Source Performed COMPLETE BLOOD COUNT W/ 2023-02-28 14:04:20 Ramiro Pratt [facility] DIFFERENTIAL [facility] COMPREHENSIVE METABOLIC 2023-02-28 14:04:20 Ramiro Pratt [facility] PANEL [facility] FERRITIN LVL 2023-02-28 14:04:[address] [facility] VITAMIN B12 LEVEL 2023-02-28 14:04:20 Ramiro Pratt [facility] Results CBC 2023-02-28 14:04:[address] [facility] MANUAL DIFFERENTIAL 2023-02-28 14:04:20 Ramiro Pratt [facility] GLUCOSE LEVEL 2023-02-28 14:04:[address] [facility] BLOOD UREA NITROGEN 2023-02-28 14:04:20 Ramiro Pratt [facility] ELECTROLYTE PANEL 2023-02-28 14:04:20 Ramiro Pratt [facility] SERUM CREATININE 2023-02-28 14:04:20 Ramiro Pratt [facility] .GLOMERULAR FILTRATION 2023-02-28 14:04:20 Ramiro Pratt [facility] CALCIUM LEVEL TOTAL 2023-02-28 14:04:20 Ramiro Pratt [facility] ALBUMIN LEVEL 2023-02-28 14:04:[address] [facility] ALKALINE PHOSPHATASE 2023-02-28 14:04:[address] [facility] ALANINE AMINOTRANSFERASE 2023-02-28 14:04:20 Ramiro Pratt [facility] ASPARTATE AMINOTRANSFERASE 2023-02-28 14:04:20 Ramiro Pratt [facility] TOTAL PROTEIN 2023-02-28 14:04:[address] [facility] FRACTIONATED BILIRUBIN 2023-02-28 14:04:[address] [facility] HEMOGLOBIN 2023-02-20 13:27:00 [facility] HEMOGLOBIN 2022-11-14 14:23:00 [facility] EXTRA TUBE LAV 2022-11-14 14:23:00 [facility] HEMOGLOBIN 2022-10-03 15:08:00 [facility] COMPLETE BLOOD COUNT W/ 2022-08-30 15:17:02 Ramiro Pratt [facility] DIFFERENTIAL [facility] COMPREHENSIVE METABOLIC 2022-08-30 15:17:02 Ramiro Pratt [facility] PANEL [facility] FERRITIN LVL 2022-08-30 15:17:[address] [facility] Results CBC 2022-08-30 15:17:[address] [facility] MANUAL DIFFERENTIAL 2022-08-30 15:17:02 Ramiro Pratt [facility] GLUCOSE LEVEL 2022-08-30 15:17:[address] [facility] BLOOD UREA NITROGEN 2022-08-30 15:17:02 Ramiro Pratt [facility] ELECTROLYTE PANEL 2022-08-30 15:17:02 Ramiro Pratt [facility] SERUM CREATININE 2022-08-30 15:17:02 Ramiro Pratt [facility] .GLOMERULAR FILTRATION 2022-08-30 15:17:02 Ramiro Pratt [facility] RATE [facility] CALCIUM LEVEL TOTAL 2022-08-30 15:17:02 Ramiro Pratt [facility] ALBUMIN LEVEL 2022-08-30 15:17:[address] [facility] ALKALINE PHOSPHATASE 2022-08-30 15:17:02 Ramiro Pratt [facility] ALANINE AMINOTRANSFERASE 2022-08-30 15:17:02 Ramiro Pratt Uni versity [facility] ASPARTATE AMINOTRANSFERASE 2022-08-30 15:17:02 [facility]ami[facility] PROTE[facility] 2022-08-30 15:17:[address] [facility] FRACTIONATED BILIRUBIN 2022-08-30 15:17:02 Ramiro Pratt [facility] [place] [facility] MD [facility] HEMOGLOBIN 2022-08-08 13:26:00 Cassandra Santana [place] o [facility] THERAPEUTIC PHLEBOTOMY 2022-05-03 05:01:00 Doctor Unassigned, Cristóbal [facility] NOTES Damon [facility] Plan of Care Planned Activity Planned Date Details Comments Source Future Scheduled Test 2023-05-18 COVID-19 Vaccination [facility] 17:50:29 (3 - Pfizer series) MD [facility] [code = COVID-19 Center Vaccination (3 - Pfizer series)] Future Scheduled Test 2023-03-08 COVID-19 Vaccination [facility] 08:15:58 (3 - Booster for MD Tone Cancer Pfizer series) [code Center = COVID-19 Vaccination (3 - Booster for Pfizer series)] Diagnostic Test 2023-02-22 hemoglobin A1C, [place] F amily Pending 00:00:00 fingerstick [code = Practice hemoglobin A1C, fingerstick] Diagnostic Test 2023-02-22 glucose, [place] Fami ly Pending 00:00:00 fingerstick, blood Practice [code = glucose, fingerstick, blood] Future Appointment 2023-08-24 Dell KempelNievesanahi omalley Family 00:00:[id number], [place] [phone] Future Appointment 2023-08-21 Edllgloria [place] Amna Dorman 07:00:[id number]; [address], [place] [address] Encounters Start End Encounter Admission Attending Care Care Encounter Source Date/Time Date/Time Type Type Clinicians Facility Department ID 2023-05-01 2023-05-01 Threading Machine Feeder Automatic Phleb, [facility] Therapeutic UNIVERSI T 1.2.840.114 [id number] Univers 08:00:00 08:15:00 Visit Pathology Y HEALTH 350.1.13.10 ity of [facility] 4.2.7.2.686 Camelia acevedo [id number] [address] 2023-05-01 2023-05-01 Outpatient R PATHOLOGY [facility] [id number] Univers 08:00:00 08:00:00 ity of [facility] 2023-03-14 2023-03-14 Telephone Erin Peterson 1.2.840.1 [id number] [facility] 16:00:00 16:20:00 Rp 91262.1.1 ity of 3.412.2.7 [place] .3.462423 MD Marte [facility] 2023-03-14 2023-03-14 Outpatient RAVI VALENZUELAMaya TODD MDA [id number] 10:26:26 10:26:26 Stevebanner 2023-03-10 2023-03-10 Emergency E RIGO, [id number] 02:05:00 06:37:00 TAHIR 2023-03-07 2023-03-07 Roxanne Pratt 1.2.840.1 [id number] Univers 00:00:00 00:00:00 Only Ramiro Shaw 66383.1.1 ity of 3.412.2.7 [place] .3.617327 MD Marerro8 [facility] 2023-03-07 2023-03-07 Roxanne Pratt 1.2.840.1 [id number] Univers 00:00:00 00:00:00 Only Ramiro Shaw 96402.1.1 ity of 3.412.2.7 [place] .3.994507 MD Marte [facility] 2023-02-28 2023-02-28 Follow-Up Ravi Valenzuelamaya Rp 1.2.840.1 [id number] [facility] 10:00:00 10:00:00 Ramiro Pratt 25316.1.1 ity of 3.412.2.7 [place] .3.707993 MD Marte [facility] 2023-02-28 2023-02-28 Follow-Up Erin Peterson Rp 1.2.840.1 [id number] [facility] 10:00:00 10:00:00 Ramiro Pratt 08047.1.1 ity of 3.412.2.7 [place] .3.538172 MD Marte [facility] 2023-02-28 2023-02-28 Outpatient PARIS PRATT MDA MDA [id number] 08:57:08 09:05:28 RAMIRO Wilson [facility] 2023-02-28 2023-02-28 Travel 1.2.840.1 1.2.670.741 [id number] Univers 00:00:00 00:00:00 40882.1.1 350.1.13.41 ity of 3.412.2.7 2.[place].7.3.698 [place] .3.525311 084.8 .8 [facility] 2023-02-28 2023-02-28 Travel 1.2.840.1 1.2.460.785 [id number] [facility] 00:00:00 00:00:00 20276.1.1 350.1.13.41 ity of 3.412.2.7 2.2.7.3.698 [place] .3.859807 084.8 .8 [facility] 2023-02-22 2023-02-22 Outpatient Daniel_T VFP [facility] [id number] [place] [address] 00:00:00 00:00:00 [id number] Family Practic e 2023-02-22 2023-02-22 Outpatient Daniel_T VFP VFP [id number] [address] [place] [address] 00:00:00 00:00:00 [id number] Family Practic e 2023-02-22 2023-02-22 Dell VFP [place] - [id number] V illage 00:00:00 00:00:00 [facility] Family [place], Medical - Practi damian ZHOU: [id number] [place] - e Shadow [facility], [address], [place] [address] , Ph. 2023-02-20 2023-02-20 Threading Machine Feeder Automatic Phleb, [facility] Therapeutic UNIVERSI T 1.2.840.114 [id number] [facility] 08:45:00 09:00:00 Visit Cassandra Santana [facility] 350.1.13.10 ity of CL[place] 4[place]2.7.2.686 [place] [id number] [place] [address] [place] 2023-02-20 2023-02-20 Outpatient R CASSANDRA SANTANA [facility] [id number] Univers 08:45:00 08:45:00 ity of [facility] 2023-02-20 2023-02-20 Outpatient Daniel_T VFP VFP [id number] [facility] 00:00:00 00:00:00 [id number] Family Practic e 2022-11-14 2022-11-14 [facility] Max Cassandra JEAN 1.2.840.114 [id number] Univers 13:20:00 23:59:00 Encounter H 350.1.13.10 ity of BU[place] 4.2.7.2.686 [place] [id number] [facility] 031 [place] 2022-11-14 2022-11-14 Outpatient Tg SANTANA CASSANDRA RUST ABB [id number] Univers 00:00:00 23:59:00 ity of [facility] 2022-10-24 2022-10-24 Outpatient Daniel_T VFP VFP [id number] [address] [place] [address] 00:00:00 00:00:00 [id number] Family Practic e 2022-10-24 2022-10-24 Dell VFP [place] - [id number] V illage 00:00:00 00:00:00 [facility] Family [place], Medical - Practi damian ZHOU: [id number] [place] - e Shadow VM_HOU_[facility], [address], [place] [address] , Ph. 2022-10-13 2022-10-13 [facility] Max Cassandra [facility] 1.2.840.114 [id number] Univers 00:00:00 00:00:00 Management Y HEALTH 350.1.13.10 ity of [place] [id number] [facility] 080 Branch 2022-10-04 2022-10-04 Telephone Nolan 1.2.840.1 [id number] Univers 00:00:00 00:00:00 Ramiro Shaw 90778.1.1 ity of 3.412.2.7 [place] .3.388866 .8 [facility] 2022-10-04 2022-10-04 Jignesh Pratt 1.2.840.1 [id number] Univers 00:00:00 00:00:00 Ramiro Shaw 69855.1.1 ity of 3.412.2.7 [place] .3.249047 MD [facility] [place] 2022-10-03 2022-10-03 [facility] Erin Peterson 1.2.840.114 [id number] Univers 13:14:00 23:59:00 Encounter Rp H 350.1.13.10 ity of BU[place]ING 4.2.7.2.686 [place] [id number] [facility] 031 [place] 2022-10-03 2022-10-03 Outpatient R ERIN PETERSON [facility] [id number] Univers 00:00:00 23:59:00 ity of [facility] 2022-08-31 2022-08-31 Case Cassandra Santana 1.2.840.114 [id number] Univers 00:00:00 00:00:00 Management H 350.1.13.10 ity of BUILDING 4.2.7.2.686 [place] [id number] [facility] 080 [place] 2022-08-30 2022-08-30 Office Erin Peterson 1.2.840.1 [id number] Univers 11:00:00 11:06:46 Visit Rp 10093.1.1 ity of 3.412.2.7 [place] .3Janes145174 MD Estuardo Wilson robel [facility] 2022-08-30 2022-08-30 Office Erin Valenzuela 1.2.840.1 [id number] Univers 11:00:00 11:06:46 Visit Rp 98394.1.1 ity of 3.412.2.7 [place] .3.994411 MD Estuardo huston [facility] [place] 2022-08-30 2022-08-30 Outpatient PARIS PRATT MDA [facility] [id number] 10:09:19 10:09:52 RAMIRO huston 2022-08-30 2022-08-30 Roxanne Pratt 1.2.840.1 [id number] Univers 00:00:00 00:00:00 Only Ramiro L 08291.1.1 ity of 3.412.2.7 [place] .3.817193 MD Marte [facility] 2022-08-30 2022-08-30 Travel 1.2.840.1 1.2.253.408 [id number] Univers 00:00:00 00:00:00 40375.1.1 350.1.13.41 ity of 3.412.2.7 2.2.7.3.698 [place] .3.519312 084.8 MD Marrero8 [facility] 2022-08-30 2022-08-30 Roxanne Pratt, 1.2.840.1 [id number] Univers 00:00:00 00:00:00 Only Ramiro L 24155.1.1 ity of 3.412.2.7 [place] .3.042792 MD Marte [facility] 2022-08-30 2022-08-30 Travel 1.2.840.1 1.2.337.981 [id number] Univers 00:00:00 00:00:00 21044.1.1 350.1.13.41 ity of 3.412.2.7 2.2.7.3.698 [place] .3.639552 084.8 MD Marte [facility] 2022-08-09 2022-08-09 Roxanne Pratt 1.2.840.1 [id number] Univers 00:00:00 00:00:00 Only Ramiro L 07326.1.1 ity of 3.412.2.7 [place] .3.661012 MD Marte [facility] 2022-08-09 2022-08-09 Roxanne Pratt 1.2.840.1 [id number] Univers 00:00:00 00:00:00 Only Ramiro L 11210.1.1 ity of 3.412.2.7 [place] .3.690460 MD Marte [facility] 2022-08-082022-08-08 [facility] Cassandra Santana TED 1.2.840.114 [id number] Univers 09:46:00 23:59:00 Encounter H 350.1.13.10 ity of BUILDING 4.2.7.2.686 [place] [id number] [facility] 031 [place] 2022-08-08 2022-08-08 Outpatient R RAJEEV SANTANAI RUST ABB [id number] Univers 00:00:00 23:59:00 ity of [facility] 2022-05-03 2022-05-03 Threading Machine Feeder Automatic [facility] UNIVERSIT 1.2.840.114 [id number] Univers 08:45:00 09:00:00 Visit Erin Peterson Rp Y HEALTH 350.1.13.10 ity of [facility] 4.2.7.2.[place] [id number] [facility] 316 [place] 2022-05-03 2022-05-03 Outpatient R ERIN PETERSON [facility] [id number] Univers 08:45:00 08:45:00 ity of [facility] 2022-05-03 2022-05-03 Orders Doctor MELVIN 1.2.840.114 [id number] Univers 00:00:00 00:00:00 Only Unassigned, BIJAN 350.1.13.10 ity of Damon [facility] 4.2.7.2.686 [place] [id number] [facility] 009 [place] 2022-03-08 2022-03-08 Outpatient R ERIN PETERSON RUST ACN [id number] Univers 08:00:00 23:59:00 ity of [facility] 2022-03-08 2022-03-08 Hospital Erin Peterson 1.2.840.114 [id number] Univers 08:00:00 23:59:00 Encounter Rp H 350.1.13.10 ity of BUILDING 4.2.7.2.686 [place] [id number] [facility] 0[address] [place] 2022-01-25 2022-01-25 Outpatient ERIN VALENZUELA MDA, MDA [id number] 09:37:54 10:15:04 Stevejohn huston 2022-01-11 2022-01-11 Outpatient PARIS PRATT MDA MDA [id number] 13:01:48 13:03:53 ARMIRO huston 2022-01-11 2022-01-11 Outpatient ERIN VALENZUELA [facility] [id number] 00:00:00 00:00:00 Steve huston 2022-01-01 2022-01-01 Outpatient Daniel_T VFP VFP [id number] [address] [place] [address] 03:41:00 03:41:00 [id number] Family Practic e 2021-12-28 2021-12-28 [facility] Erin Peterson TED 1.2.840.114 [id number] [facility] 11:53:00 23:59:00 Encounter Rp H 350.1.13.10 ity of [facility] 4.2.7.2.686 [place] [id number] [address] 2021-12-28 2021-12-28 Outpatient Tg BRUSHARAVIMaya RUST ACN [id number] [facility] 00:00:00 23:59:00 ity [facility] 2021-12-28 2021-12-28 Outpatient Daniel_T VFP VFP [id number] [address] [place] [address] 05:10:00 05:10:00 [id number] Family Practic e 2021-12-28 2021-12-28 Dell VFP [place] - [id number] V illage 00:00:00 00:00:00 [facility] Family [place], Tyson - Afshan salgado MD: [id number] VM_CHITRA_Antony e Shadow [address] [place] [facility], [address], [place] [address] , Ph. 2021-12-13 2021-12-13 Outpatient Daniel_T VFP VFP [id number] [address] [place] [address] 04:52:00 04:52:00 [id number] Family Practic e 2021-12-13 2021-12-13 Outpatient Daniel_T VFP VFP [id number] [address] [place] [address] 04:52:00 04:52:00 [id number] Family Practic e 2021-11-16 2021-11-16 Outpatient CASSANDRA DANG RUST ACN [id number] [facility] 11:58:00 23:59:00 ity [facility] 2021-11-16 2021-11-16 [facility] Cassandra Santana 1.2.840.114 [id number] Univers 11:58:00 23:59:00 Encounter H 350.1.13.10 ity of BUILDING 4.2.7.2.686 [place] [id number] [address] 2021-10-26 2021-10-26 Harriet [place] RUST 1.2.840.114 [id number] Univers 00:00:00 00:00:00 [facility] 350.1.13.10 [place] PROFESS[place] [id number] Ga dical NAL 220 [facility] 2021-09-07 2021-09-07 Outpatient ERIN JACOBS RUST ACN [id number] Univers 08:33:00 23:59:00 ity of [facility] 2021-09-07 2021-09-07 [facility] Erin Peterson 1.2.840.114 [id number] Univers 08:33:00 23:59:00 Encounter Rp H 350.1.13.10 ity of BUILDING 4.2.7.2.686 [place] [id number] [address] 2021-07-13 2021-07-13 [facility] Cassandra Santana [id number] Univers 08:58:00 23:59:00 Encounter H 350.1.13.10 ity of BUILDING 4.2.7.2.686 [place] [id number] [address] 2021-07-13 2021-07-13 Outpatient R CASSANDRA SANTANA RUST ACN [id number] Univers 00:00:00 00:00:00 ity of [facility] 2021-07-07 2021-07-07 Case [facility] [id number] Univers 00:00:00 00:00:00 Management Y HEALTH 350.1.13.10 ity [id number] [address] 2021-07-06 2021-07-06 Outpatient ERIN VALENZUELA [facility] [id number] 10:22:44 10:56:33 Stevejohn huston 2021-07-05 2021-07-05 Outpatient PARIS MUSA MDA [facility] [id number] 08:36:56 08:39:34 FARIDA Steve huston 2021-06-01 2021-06-01 Outpatient Tg DAVENPORT [facility] [id number] Univers 11:00:00 11:00:00 [facility] 2021-02-02 2021-02-02 Outpatient R ETHEL [facility] [id number] Univers 14:00:00 14:00:00 [facility] 2020-12-29 2020-12-29 Outpatient R CASSANDRA SANTANA RUST ACN [id number] Univers 13:14:00 [facility]:14[facility] 2020-12-23 2020-12-23 [facility] [id number] Univers 10:30:00 10:30:00 MARTITA VENEGAS [facility] 2020-10-20 2020-10-20 Outpatient R CASSANDRA SANTANA RUST ACN [id number] Univers 11:19:00 11:19:00 [facility] 2020-09-25 2020-09-25 Outpatient R DUANEIsmael [facility] [id number] Univers 07:45:00 07:45:00 ity [facility] 2020-09-25 2020-09-25 Outpatient Tg PATEL [facility] [id number] Univers 00:00:00 00:00:00 ity [facility] 2020-09-22 2020-09-22 Outpatient R ETHEL [facility] [id number] Univers 11:30:00 11:30:00 [facility] 2020-09-16 2020-09-16 Outpatient R [facility] [id number] Univers 16:30:00 16:30:00 MARTITA VENEGAS [facility] 2020-08-11 2020-08-11 Outpatient R [facility] [id number] Univers 09:00:00 09:00:00 [facility] 2020-08-07 2020-08-07 Outpatient R [facility] [id number] Univers 08:15:00 08:15:00 ity [facility] 2020-07-27 2020-07-27 Outpatient TAMRA, [facility] [id number] Univers 10:30:00 10:30:00 BERLINMAXIMUS colty o f [facility] 2020-07-20 2020-07-20 Outpatient R PATEL, [facility] [id number] Univers 15:00:00 15:00:00 SENDIL [facility] 2020-07-15 2020-07-15 Outpatient R [facility] [id number] Univers 09:00:00 09:00:00 [facility] 2020-07-14 2020-07-14 Outpatient R TAMRA, [facility] [id number] Univers 16:00:00 16:00:00 ZACH asencio o f [facility] 2020-06-30 2020-06-30 Outpatient EL DANGELO, RAVII MDA MDA [id number] 11:08:42 12:24:18 Steve o n 2020-06-30 2020-06-30 Outpatient R CASSANDRA SANTANA RUST ABB [id number] Univers 00:00:00 00:00:00 ity [facility] 2020-06-30 2020-06-30 Outpatient EL FRANCIQUE, MDA MDA [id number] 00:00:00 00:00:00 FARIDA Steve o n 2020 2020 Outpatient EL DANGELO BAGI MDA MDA [id number] 00:00:00 00:00:00 Steve o n 2020 2020 Outpatient EL FRANCIQUE, MDA MDA [id number] 00:00:00 00:00:00 FARIDA Steve o n 2020-06-17 2020-06-17 Outpatient R ETHEL [facility] [id number] Univers 09:00:00 09:00:00 PREM [facility] 2020-06-16 2020-06-16 Outpatient R MAX CASSANDRA RUST ACN [id number] Univers 00:00[facility]00 [facility] 2020-03-24 2020-03-24 Outpatient R CASSANDRA SANTANA RUST ABB [id number] Univers 00:00:00 00:00:00 [facility] 2020-02-12 2020-02-12 Outpatient R ETHEL [facility] [id number] Univers 15:00:00 15:00:00 PREM [facility] 2019-10-06 2019-10-08 Outpatient X CLARKE HASSAN [facility] [id number] Univers 11:46:32 17:57:00 [facility] Results Test Description Test Time Test Comments Results Result Comments Source Hemoglobin A1c measurement device panel 2023-02-22 08:08:05 Test Item Value Reference Range Interpretation Comme nts Hemoglobin A1c/Hemoglobin.total in Blood (test code = 4548-4) 7.1 % 5.7-6.4 [facility] Cap[facility] [id number] 08:04:43 Test Item Value Reference Range Interpretation Comments Blood Glucose: mg/dl (test code = Blood 94 Glucose: mg/dl) [facility] [id number] 19:25:41 Test Item Value Reference Range Interpretation Comments HGB (test code = 718-7) 16.4 g/dL 12.2-16.4 Lab Interpretation (test code = Normal 75681-8) [facility] 13:10:42 Test Item Value Reference Range Interpretation Comments HGB (test code = 718-7) 15.7 g/dL 12.2-16.4 Lab Interpretation (test code = Normal 93475-2) [facility] panel 2022-10-24 14:25:09 Test Item Value Reference Range Interpretation Comments Hemoglobin A1c/Hemoglobin.total in 9.6 % 5.7-6.4 Blood (test code = 4548-4) [facility] [id number] 20:27:51 Test Item Value Reference Range Interpretation Comments HGB (test code = 718-7) 17.3 g/dL 12.2-16.4 H Lab Interpretation (test code = Abnormal 95774-0) [facility]2022-10-03 18:49:01 Test Item Value Reference Range Interpretation Comments HGB (test code = 718-7) 17.4 g/dL 12.2-16.4 H Lab Interpretation (test code = Abnormal 59714-5) [facility] device panel 2021-12-28 15:03:59 Test Item Value Reference Range Interpretation Comments Hemoglobin A1C Fingerstick: (test code 10.4 = Hemoglobin A1C Fingerstick:) [facility] [[facility]/volume] in Capillary [id number] 15:03:05 Test Item Value Reference Range Interpretation Comments Blood Glucose: mg/dl (test code = Blood 397 Glucose: mg/dl) [facility]
[2023-06-24] MEDS ORDERED: ASPIRIN 81 MG CHEWABLE TABLET ONE (14:49)
[2023-06-24] MEDS ORDERED: DIAZEPAM 10 MG/2 ML INJ SYRINGE ONE (14:49)
[2023-06-24] MEDS ORDERED: ONDANSETRON 4 MG/2 ML VIAL ONE (14:49)
[2023-06-24 14:53] LABS: Absolute Lymphocytes (CBC) 2.1 K/uL (0.7-4.9); Hematocrit 53.4 % (39.6-49.0); Lymphocytes % 16.6 % (15.3-44.8); MCV 81.7 fL (80-100); MPV 7.8 fL (7.6-11.3); Platelets 226 thou/uL (152-406); RBC Red Blood Cell Count 6.54 M/uL (4.33-5.43)
--- NOTE | 2023-06-24 15:05 | RAD REPORT ---
[facility] CLINICAL HISTORY: CHEST PAIN COMPARISON: Chest Single View dated 03/09/2023; CHEST PA AND LAT 2 VIEW dated 10/17/2014; CHEST PA AND LAT 2 VIEW dated 07/01/2008 TECHNIQUE: Portable AP view of the chest. FINDINGS: The lungs are clear. No pneumothorax or effusion. The cardiomediastinal contours are unrem arkable. IMPRESSION: No acute cardiopulmonary process.
[2023-06-24 15:11] LABS: Albumin 3.7 g/dL (3.4-5.0); Bilirubin Direct 0.2 mg/dL (0-0.2); Bilirubin Indirect, Calculated 0.7 mg/dL (0.2-0.8); Bilirubin Total 0.9 mg/dL (0.2-1.0); Magnesium 2.1 mg/dL (1.6-2.4); Potassium 3.2 mEq/L (3.5-5.1); Protein, Total 7.7 g/dL (6.4-8.2)
[2023-06-24] MEDS ORDERED: NA CHLORIDE 0.9% 50 ML ONE (17:03)
[2023-06-24] MEDS ORDERED: METOCLOPRAMIDE 10 MG/2mL INJ ONE (17:03)
--- NOTE | 2023-06-24 17:17 | RAD REPORT ---
EXAM DESCRIPTION: CT - Abdomen Pelvis W Contrast - 06/24/2023 4:36 pm CLINICAL HISTORY: N/V, abd pain COMPARISON: Abdomen Pelvis W Contrast dated 03/09/2023; CT ABD PELVIS W CONTRAST dated 10/15/2014 TECHNIQUE: Thin cut axial CT imaging of the abdomen and pelvis was performed following intravenous a dministration of 100 mL Isovue 300. Multiplanar reformats were generated and reviewed. All CT scans are performed using dose optimization technique as appropriate and may include automated exposure control or mA/KV adjustment according to patient size. FINDINGS: No suspicious findings in the lung bases. The liver, spleen, and pancreas show no suspicious findings. Status post cholecystectomy. No intra or extrahepatic biliary ductal dilation. Symmetric renal function is seen with no hydronephrosis or suspicious renal mass. Subcentimeter right lower pole cortical cyst, not well characterized. No dilated bowel loops or bowel wall thickening. No free air, free fluid or inflammatory stranding. N o hernia, mass or bulky lymphadenopathy. The urinary bladder is without significant finding. No suspicious bony findings. IMPRESSION: No acute intra-abdominal process.
--- NOTE | 2023-06-24 17:29 | ER ---
Nurse's Notes [facility] Name: Fahad Aguilera Age: 53 yrs Sex: Male : 1970 Arrival Date: 06/24/2023 Time: 13:53 Bed 20 Private MD: Diagnosis: Nausea with vomiting, unspecified Presentation: 06/24 13:54 Chief complaint: Patient states: Chest pain today along with vomiting/diarrhea. Had nj1 been vomiting/diarrhea since Monday, seen in [place] [facility], was feeling better and started again today. Denies taking any anti-nausea med today. Actively vomiting during triage. Coronavirus screen: Vaccine status: Patient reports receiving the 2nd dose of the covid vaccine. Ebola Screen: Patient denies travel to an Ebola-affected area in the 21 days before illness onset. Initial Sepsis Screen: Does the patient meet any 2 criteria? No. Patient's initial sepsis screen is negative. Does the patient have a suspected source of infection? No. Patient's initial sepsis screen is negative. 13:54 Method Of Arrival: Ambulatory [facility] 13:54 Risk Assessment: Do you want to hurt yourself or someone else? Patient reports no [facility] desire to harm self or others. Onset of symptoms was June 20, 2023. 13:54 Acuity: SHEA 3 nj Triage Assessment: 14:00 GI: Pt is actively vomiting. [facility] Historical: - Allergies: 14:04 No Known Allergies; nj1 - Home Meds: 15:20 hydrochlorothiazide 12.5 mg Oral capsule for hypertension [Active]; aspirin 81 mg Oral db tablet, delayed release (enteric coated) 1 tab daily [Active]; Farxiga 10 mg oral tablet [Active]; etodolac 500 mg Oral tablet [Active]; losartan potassium (bulk) 100 MG [Active]; metformin 500 mg Oral Tablet, ER Gastric Retention 24 hr [Active]; Ozempic 2 mg/dose (8 mg/3 mL) subcutaneous Pen Injector 2 mg every week [Active]; Ecotrin Oral [Active]; - PMHx: 14:04 diabetes mellitus; Hypertensive disorder; nj1 - Immunization history:: Client reports receiving the 2nd dose of the Covid vaccine. - Social history:: Smoking status: Patient denies any tobacco usage or history of. Screenin:18 [facility] ED Fall Risk Assessment (Adult) History of falling in the last 3 months, db including since admission No falls in past 3 months (0 pts) Confusion or Disorientation No (0 pts) Intoxicated or Sedated No (0 pts) Impaired Gait No (0 pts) Mobility Assist Device Used No (0 pt) Altered Elimination No (0 pt) Score/Fall Risk Level 0 - 2 = Low Risk Oriented to surroundings, Maintained a safe environment. Abuse screen: Denies threats or abuse. Denies injuries from another. Nutritional screening: No deficits noted. Tuberculosis screening: No symptoms or risk factors identified. Assessment: 14:05 Reassessment: Patient appears in no apparent distress at this time. Patient and/or db family updated on plan of care and expected duration. Pain level reassessed. Patient is alert, oriented x 3, equal unlabored respirations, skin warm/dry/pink. General: Appears in no apparent distress. comfortable, Behavior is calm, cooperative. Pain: Complains of pain in chest Pain does not radiate. Pain began gradually. Cardiovascular: Reports chest pain. 15:00 Reassessment: Patient appears in no apparent distress at this time. Patient and/or db family updated on plan of care and expected duration. Pain level reassessed. Patient is alert, oriented x 3, equal unlabored respirations, skin warm/dry/pink. Patient states feeling better. Patient states symptoms have improved. Neuro: Level of Consciousness is awake, alert, obeys commands, Oriented to person, place, time, situation. 16:05 Reassessment: PATIENT GIVEN WATER AND CRACKERS FOR PO CHALLENGE. 16:55 Reassessment: PATIENT RETURNED FROM CT COMPLAINING OF NAUSEA/VOMITING . NOTIFIED DR. steve MEDRANO AND TUSHAR ORDERED. SEE MAR FOR MEDICATION ADMINISTRATION. Vital Signs: 13:54 BP 183 / 95; Pulse 83; Resp 20; Pulse Ox 97% on R/A; Weight 122.47 kg; Height 5 ft. 9 nj1 in. ; Pain 8/10; 14:30 BP 157 / 94; Pulse 80; Resp 16; Pulse Ox 99% on R/A; db 15:00 BP 168 / 91; Pulse 83; Resp 16; Pulse Ox 94% on R/A; db 13:54 Body Mass Index 39.87 (122.47 kg, 175.26 cm) [facility] 13:54 Pain Scale: Adult [facility] ED Course: 13:55 Patient arrived in ED. ts1 13:57 Digna Betancourt, RN is Primary Nurse. db 13:57 Yeyo Medrano MD is Attending Physician. jr11 14:04 Triage completed. nj1 14:04 Arm band placed on. nj1 14:18 Patient has correct armband on for positive identification. Bed in low position. Call db light in reach. Side rails up X 1. Client placed on continuous cardiac and pulse oximetry monitoring. NIBP monitoring applied. Warm blanket given. Pillow given. 14:18 Inserted saline lock: 20 gauge in right antecubital area, using aseptic technique. db Blood collected. Patient maintains SpO2 saturation greater than 95% on room air. 14:52 XRAY Chest (1 view) In Process Unspecified. EDMS 16:38 CT Abd/Pelvis - IV Contrast Only In Process Unspecified. EDMS 18:01 No provider procedures requiring assistance completed. IV discontinued, intact, kc6 bleeding controlled, No redness/swelling at site. Pressure dressing applied. Administered Medications: 14:40 Drug: Aspirin PO Chewable Tablet 324 mg Route: PO; db 14:40 Drug: Ondansetron IVP 4 mg Route: IVP; Site: right antecubital; db 14:45 Drug: Diazepam IVP 2 mg Route: IVP; Site: right antecubital; db 16:57 Drug: metoCLOPramide IVP 10 mg Route: IVP; Site: right antecubital; db Medication: 14:18 VIS not applicable for this client. db Outcome: 17:29 Discharge ordered by . jr11 18:01 Discharged to home via wheelchair, with significant other. kc6 18:01 Condition: improved 18:01 Discharge instructions given to patient, Instructed on discharge instructions, follow up and referral plans. medication usage, Demonstrated understanding of instructions, follow-up care, medications, Prescriptions given X 1. 18:01 Patient left the ED. kc6 Signatures: Dispatcher [employer] EDAK Yeyo Medrano MD MD jr11 Viola Jeong RN ÁNGEL kc6 Digna Betancourt, RN Janina Song RN RN nj1 Mami Schumacher PAS PAS ts1
--- NOTE | 2023-06-24 17:29 | EDPHYS ---
Physician Documentation [facility] Name: Fahad Aguilera Age: 53 yrs Sex: Male : 1970 Arrival Date: 06/24/2023 Time: 13:53 Bed 20 Private MD: ED Physician Yeyo Medrano HPI: 06/24 14:12 Patient is a 53-year-old with hypertension diabetes obesity here with nausea vomiting jr11 that started on Monday. He was seen in [place], kept overnight discharge Monday. Thought it this was viral in nature, he does not have a gallbladder anymore. Patient was doing well until this morning, started vomiting again after vomiting with some chest tightness nonexertional, worse with deep breathing. Denies exertional pain, no tearing pain, does not radiate to the back, does not cross the diaphragm. No diaphoresis, no vomiting. No syncope or near-syncope. . Historical: - Allergies: 14:04 No Known Allergies; nj1 - Home Meds: 15:20 hydrochlorothiazide 12.5 mg Oral capsule for hypertension [Active]; aspirin 81 mg Oral db tablet, delayed release (enteric coated) 1 tab daily [Active]; Farxiga 10 mg oral tablet [Active]; etodolac 500 mg Oral tablet [Active]; losartan potassium (bulk) 100 MG [Active]; metformin 500 mg Oral Tablet, ER Gastric Retention 24 hr [Active]; Ozempic 2 mg/dose (8 mg/3 mL) subcutaneous Pen Injector 2 mg every week [Active]; Ecotrin Oral [Active]; - PMHx: 14:04 diabetes mellitus; Hypertensive disorder; nj1 - Immunization history:: Client reports receiving the 2nd dose of the Covid vaccine. - Social history:: Smoking status: Patient denies any tobacco usage or history of. ROS: 14:12 All other systems are negative. jr11 Exam: 14:12 Constitutional: This is a well developed, well nourished patient who is awake, alert, jr11 and in no acute distress. Head/Face: Normocephalic, atraumatic. Eyes: Extra-ocular motions intact. Lids and lashes normal. Conjunctiva and sclera are non-icteric and not injected. Cornea within normal limits. Periorbital areas with no swelling, redness, or edema. ENT: Nares patent. No nasal discharge, no septal abnormalities noted. Oropharynx with no redness, swelling, or masses, exudates, or evidence of obstruction, uvula midline. Mucous membranes moist. Neck: Trachea midline, no thyromegaly or masses palpated, and no cervical lymphadenopathy. Supple, full range of motion without nuchal rigidity, or vertebral point tenderness. No Meningismus. Chest/axilla: Normal chest wall appearance and motion. Nontender with no deformity. No lesions are appreciated. Respiratory: Lungs have equal breath sounds bilaterally, clear to auscultation and percussion. No rales, rhonchi or wheezes noted. No increased work of breathing, no retractions or nasal flaring. Abdomen/GI: Soft, non-tender, with normal bowel sounds. No distension or tympany. No guarding or rebound. No evidence of tenderness throughout. Back: No spinal tenderness. No costovertebral tenderness. Full range of motion. Skin: Warm, dry with normal turgor. Normal color with no rashes, no lesions, and no evidence of cellulitis. MS/ Extremity: Pulses equal, no cyanosis. Neurovascular intact. Full, normal range of motion. Neuro: Awake and alert, GCS 15, oriented to person, place, time, and situation. No gross motor or sensory deficits. Vital Signs: 13:54 BP 183 / 95; Pulse 83; Resp 20; Pulse Ox 97% on R/A; Weight 122.47 kg; Height 5 ft. 9 nj1 in. ; Pain 8/10; 14:30 BP 157 / 94; Pulse 80; Resp 16; Pulse Ox 99% on R/A; db 15:00 BP 168 / 91; Pulse 83; Resp 16; Pulse Ox 94% on R/A; db 13:54 Body Mass Index 39.87 (122.47 kg, 175.26 cm) nj1 13:54 Pain Scale: Adult nj1 MDM: 14:12 Patient medically screened. jr11 14:12 Differential diagnosis: abnormal EKG, anxiety, costochondritis, esophagitis, gastritis, jr11 gastroesophageal reflux disease (GERD). Data reviewed: vital signs. ED course: EKG interpreted by nv shows normal sinus rhythm, normal axis, normal intervals, no acute ST changes.. ED course: classroom monitor interpreted by me shows normal sinus rhythm rate of 65. 17:28 ED course: Chest x-ray interpreted by me shows no pneumonia, spoke to his , every time hemoglobin is greater than 16, he gets nausea vomiting and some dyspnea, he will follow-up with MD [facility] for bloodletting next week. ER warnings given all results explained. 06/24 13:58 Order name: Basic Metabolic Panel; Complete Time: 15:16 06/24 13:58 Order name: CBC with Diff; Complete Time: 14:57 06/24 13:58 Order name: D-Dimer; Complete Time: 14:57 06/24 13:58 Order name: LFT's; Complete Time: 15:16 06/24 13:58 Order name: Magnesium; Complete Time: 15:16 06/24 13:58 Order name: NT PRO-BNP; Complete Time: 15:16 06/24 13:58 Order name: Troponin HS; Complete Time: 15:16 06/24 13:58 Order name: XRAY Chest (1 view); Complete Time: 15:16 06/24 16:09 Order name: CT Abd/Pelvis - IV Contrast Only; Complete Time: 17:20 06/24 13:58 Order name: EKG; Complete Time: 13:58 06/24 13:58 Order name: Cardiac monitoring; Complete Time: 14:26 06/24 13:58 Order name: EKG - Nurse/Tech; Complete Time: 14:26 06/24 13:58 Order name: IV Saline Lock; Complete Time: 14:49 06/24 13:58 Order name: Labs collected and sent; Complete Time: 14:49 06/24 13:58 Order name: O2 Per Protocol; Complete Time: 14:26 06/24 13:58 Order name: O2 Sat Monitoring; Complete Time: 14:06/24 16:02 Order name: PO challenge; Complete Time: 16:57 Administered Medications: 14:40 Drug: Aspirin PO Chewable Tablet 324 mg Route: PO; db 14:40 Drug: Ondansetron IVP 4 mg Route: IVP; Site: right antecubital; db 14:45 Drug: Diazepam IVP 2 mg Route: IVP; Site: right antecubital; db 16:57 Drug: metoCLOPramide IVP 10 mg Route: IVP; Site: right antecubital; db Disposition Summary: 06/24/23 17:29 Discharge Ordered Location: Home [facility] Condition: Stable [facility] Diagnosis - Nausea with vomiting, unspecified jr11 Followup: [facility] - With: Private Physician - When: 2 - 3 days - Reason: Further diagnostic work-up Discharge Instructions: - Discharge Summary Sheet jr11 - Nausea and Vomiting, Adult jr11 - Shortness of Breath, Adult [facility] Forms: - Medication Reconciliation Form 11 - Thank You Letter jr11 - Antibiotic Education jr11 - Prescription Opioid Use jr11 - Patient Portal Instructions jr11 - Leadership Thank You Letter jr11 Prescriptions: - Reglan 10 mg Oral Tablet - take 1 tablet by ORAL route every 6 hours prn nausea; 20 tablet; Refills: 0, jr11 Product Selection Permitted Signatures: Dispatcher [employer] EDYeyo Whelan MD MD jr11 Digna Betancourt, RN RN db Janina Palomares RN RN nj1
[2023-06-24 18:11] VITALS: BP 168/91; O2SAT 94
--- NOTE | 2023-06-26 18:03 | EKG ---
Test Date: 2023-06-24 Test Time: 14:10:17 Referral Management Liaison: YAA MEASUREMENT RESULTS: Intervals: Rate: 75 SD: 164 QRSD: 80 QT: 394 QTc: 439 Danielson: P: 47 SD: 164 QRS: 4 T: 25 INTERPRETIVE STATEMENTS: Normal sinus rhythm Normal ECG Compared to ECG 03/09/2023 21:42:50 No significant changes Electronically Signed On 06-26-23 17:57:59 CDT by Roger Rae
== END 2023-06-24 18:01 | disposition home or self-care (01) ==
LOC: ER 13:53
DX: R11.2 Nausea with vomiting, unspecified (principal); R07.89 Other chest pain; E11.9 Type 2 diabetes mellitus without complications; I10 Essential (primary) hypertension
CPT/HCPCS: 93005; 85025; 80048; 36415; 83735; 85379; 80076; 84484; 83880; 74177; 71045; 96375; 96374; 99285; Q9967; J2765; J3360; J2405